=== PATIENT | male | born 1955 | race Caucasian/White ===

== ENCOUNTER 2018-06-23 15:46 | Outpatient (REF) | payer BC, SELFPAY ==
[2018-06-23 22:01] LABS: Anion Gap 9.6 mmol/L (3-11); BUN 13 mg/dL (7-18); CO2 25.4 mmol/L (21.0-32.0); CREATININE 0.77 mg/dL (0.70-1.30); Calcium 9.1 mg/dL (8.5-10.1); Chloride 104 mmol/L (98-107); Glucose 148 mg/dL (70-100); Potassium 3.7 mmol/L (3.5-5.1); Sodium 139 mmol/L (136-145)
== END 2018-06-23 16:06 ==
LOC: NCHCN 15:46
PROVIDERS: PCP Internal Medicine; Visit Provider Internal Medicine
DX: E11.65 Type 2 diabetes mellitus with hyperglycemia (principal); D12.6 Benign neoplasm of colon, unspecified; K21.9 Gastro-esophageal reflux disease without esophagitis; Z87.09 Personal history of other diseases of the respiratory system
CPT/HCPCS: 80048

== ENCOUNTER 2018-08-29 07:09 | Day surgery (SDC) | payer BC, SELFPAY ==
[2018-08-29 07:20] VITALS: BP 119/80; PULSE 75; RESP 16; TEMP 36.6; O2SAT 95
[2018-08-29] MEDS: Lactated Ringers 1,000 ML 80 ML IV (07:46)
--- NOTE | 2018-08-29 08:25 | BOWEL_PTH ---
PATIENT: Umair Valdivia LOC: [facility] U#:[id number] AGE/SX: 63/M ROOM: RE08/29/[address]: Monique Matias : 1955 BED: DIS: 08/29/2018 SPEC #: [id number] RECD: 08/29/18 12:31 STATUS: BERT RECecelia #: [id number] REHANA: 08/29/18 08:[address]: Monique Matias DEPT: Surgical Specimen RECD BY: Pam Oconnor ENTERED: 08/29/18 12:35 SP TYPE: Bowel OTHR DR: Camilo Ruiz Tissues: 1 - BIOPSY BOWEL 2 - BIOPSY BOWEL 3 - BIOPSY BOWEL 4 - BIOPSY BOWEL 5 - BIOPSY BOWEL 6 - BIOPSY BOWEL 7 - BIOPSY BOWEL Procedures: GROSS AND MICRO LEVEL 4 Comments: [id number]
--- NOTE | 2018-08-29 08:59 | W.COLOREPORT ---
Date of service: 08/29/18 Time of Service: 08:59 Colonoscopy Report Date of procedure: 08/29/18 Pre-op diagnosis general: A. polyps Post-op diagnosis procedure note: same Procedure: ce w/ mult polypectomy- all cold biter Surgeon: Monique Matias Anesthesia proc note operative: GETA Pathology: other Complications: None Disposition: same day Prep: Miralax Retraction Time: 15 mins Procedure Description: After informed consent was obtained the patient was taken to the procedure room and placed in a left decubitous position. Monitors were applied and a time out was done. The patients name, date of , procedure, allergies to medications and metal in their body was reviewed. The patient was then sedated. Once sedated and comfortable a rectal exam was done. External exam was normal. Internal exam revealed a normal sphincter tone and no palpable masses. The prostate nl. The scope was then introduced and retrofelexed. No internal hemorrhoids were identified. The scope was then advanced to the cecum without difficulty. The TI and appendiceal orifice were identified. The prep was good . The scope was then slowly retracted over 15 minutes back into the rectum. All polyps were removed with a cold biting forcepts. Polyps were removed at: x1 cecum/ x1 90cm/ x2 80cm (ascending colon) /x1 50cm (transverse) x1 @ 30cm/ x2 20cm (descending colon) adn x1 rectum. The scope was removed and the patient was woken up and taken back to Same day surgery in stable condition. The patient tolerated the procedure well and there were no immediate complications. Follow up: The patient should follow up in 3-5 years- path pd, unless they develop changes in bowel habits or other new gastrointestinal complaints.
--- NOTE | 2018-08-29 08:59 | W.PM.DSUDISC ---
Discharge Plan Disposition Patient Disposition: HOME Condition: Good Discharge Details Reason For Visit: colon scope Attending Provider: Monique Matias Primary Care Provider: Camilo Ruiz Home Meds and New Rx's Prescriptions: No Action glimepiride 4 mg tablet 4 mg PO QAM RF: 0 multivitamin [Daily Multi-Vitamin] tablet 1 tab PO DAILY RF: 0 polyethylene glycol 3350 17 gram/dose powder 238 g PO ONCE Qty: 238 RF: 0 bisacodyl [Dulcolax (bisacodyl)] 5 mg tablet,delayed release (DR/EC) 5 mg PO ONCE Qty: 4 RF: 0 Prilosec OTC 20 MG tablet,delayed release (DR/EC) 20 mg PO DAILY RF: 0 albuterol sulfate [ProAir HFA] 200 PUFF HFA aerosol inhaler 1 - 2 puff Inhalation .Q4-6H PRN RF: 0 Flovent HFA 120 PUFF HFA aerosol inhaler 2 puff Inhalation BID RF: 0 finasteride [Propecia] 1 MG tablet 1 mg PO DAILY RF: 0 loratadine [Claritin Liqui-Gel] 10 MG capsule 1 cap PO DAILY RF: 0 Victoza 2-Josafat 0.6 mg/0.1 mL (18 mg/3 mL) Pen Injector 0.6 mg SUBCUT DAILY RF: 0 Discharge Instructions Additional Instructions: Findings:mult polyps no asa/nsaids for 10 day may have some bleeding w/ first 1-2 DM Follow up:will send a letter w/ results from polps repeat scope in 5 yrs time - path pd. Please call if you develop: fevers >101.5 Nausea or Vomiting Abdominal pain that is not transient DAY SURGERY UNIT POST COLONOSCOPY INSTRUCTIONS 1. Because there will be medication in your system for the next 24 hours, you may feel a little sleepy. Your coordination will be affected. Therefore: a. Do not drive or operate dangerous equipment for 24 hours. b. Do not drink alcohol beverages for 24 hours (not even beer). c. Plan to go home and rest for the day. 2. Generally there are no restrictions on your activity after a day or so has gone by, but you may feel a bit fatigued for a few days. 3 After you arrive home you may have a light meal and return to a normal diet as you can tolerate it without feeling sick to your stomach. 4. After surgery, you may feel pain or discomfort. This should be only transient, but if it persists please contact your doctor. 5. If there are any questions regarding the findings of your procedure, please feel free to contact your doctor. 6. If you are unable to contact your doctor with a problem, contact the hospital at [phone]. 7. Continue all your regular medications unless directed otherwise. I understand the above instructions and have no questions. Signature of Patient or Responsible Adult Escort Date/Time Name of Responsible Adult Escort Signature of Nurse Date/Time Stand Alone Forms: Colonoscopy Post Instructions, Robert [place] (DSU) Activity:: no strenos acitiy or heavy lifting x 24 hrs Shower/Bathe:: 24 hours Diet:: small lt meals x 24 hrs Discharge Orders Discharge Orders: Discharge Order (Routine); Ordered 08/29/18 Ordered By: Monique Matias Discharge Data Discharge Date/Time-TO BE ENTERED AT DEPARTURE: 08/29/18 10:25 Discharge Comment: DC'D HOME WITH , STABLE. DS: Diagnosis Discharge Diagnosis (1) History of colonic polyps: Status: Chronic
[2018-08-29 09:52] VITALS: BP 118/80; PULSE 71; RESP 18; TEMP 35.9; O2SAT 93
== END 2018-08-29 10:25 | disposition home or self-care (01) ==
PROVIDERS: PCP Internal Medicine; Visit Provider Surgery
PROC: 0DJD8ZZ Inspection of Lower Intestinal Tract, Via Natural or Artificial Opening Endoscopic (ICD-10-PCS; CPT 45378; principal; 2018-08-29 08:15)
DX: Z12.11 Encounter for screening for malignant neoplasm of colon (principal); D12.0 Benign neoplasm of cecum; D12.2 Benign neoplasm of ascending colon; D12.3 Benign neoplasm of transverse colon; K63.5 Polyp of colon; K62.1 Rectal polyp; Z86.010 Personal history of colon polyps; E11.9 Type 2 diabetes mellitus without complications; Z79.84 Long term (current) use of oral hypoglycemic drugs; K21.9 Gastro-esophageal reflux disease without esophagitis
CPT/HCPCS: 45380; 88305

== ENCOUNTER 2018-09-01 17:50 | Emergency (ER) | payer BC, SELFPAY ==
[2018-09-01 18:06] VITALS: BP 108/88; PULSE 112; RESP 18; TEMP 36.6; O2SAT 95
[2018-09-01] MEDS: Lactated Ringers 1,000 ML 1000 ML IV ×2 (18:27→19:54)
[2018-09-01] MEDS: FAMOTIDINE 20 MG/50 ML BAG 100 MG IVPB (18:34)
[2018-09-01 18:37] LABS: Abs Immature Grans 0.01 k/cumm (0.0-0.09); Absolute Basophil Count 0.01 k/cumm (0.0-0.2); Absolute Eosinophil Count 0.21 k/cumm (0.0-0.7); Absolute Lymphocyte Count 0.72 k/cumm (1.2-3.4); Absolute Monocyte Count 0.66 k/cumm (0.11-0.7); Absolute Neutrophil Count 5.83 k/cumm (1.2-6.7); Basophils % 0.1; Eosinophils % 2.8; HCT 46.9 % (40.0-50.0); HGB 16.1 g/dL (13.5-17.5); Immature Grans % 0.1; Lymphocytes % 9.7; Mean Corp. HGB Concentration 34.3 g/dL (32.0-36.0); Mean Corpuscular Hemoglobin 29.1 pg (27.0-33.0); Mean Corpuscular Volume 84.8 fL (80-95); Mean Platelet Volume 10.2 fL (8.0-11.0); Monocytes % 8.9; Neutrophils % 78.4; Platelet Count 211 x1000/uL (130-400); RBC 5.53 m/cumm (4.50-6.00); RBC Distribution Width 13.1 % (11.8-14.1); White Blood Cell Count 7.44 k/cumm (4.4-10.8)
--- NOTE | 2018-09-01 18:48 | ED.GENADUL_ITS ---
Discharge Plan Disposition Patient Disposition: HOME Discharge Details Chief Complaint: Abd Prob Clinical Impression: Nausea and vomiting, Diarrhea Primary Care Provider: Camilo Ruiz ED Provider: Hugo Duong Home Meds and New Rx's Prescriptions: New ondansetron 4 mg tablet,disintegrating 4 mg PO BID-TID PRN (Reason: nausea and vomiting) Qty: 10 RF: 0 Continued glimepiride 4 mg tablet 4 mg PO QAM RF: 0 multivitamin [Daily Multi-Vitamin] tablet 1 tab PO DAILY RF: 0 Prilosec OTC 20 MG tablet,delayed release (DR/EC) 20 mg PO DAILY RF: 0 albuterol sulfate [ProAir HFA] 200 PUFF HFA aerosol inhaler 1 - 2 puff Inhalation .Q4-6H PRN RF: 0 Flovent HFA 120 PUFF HFA aerosol inhaler 2 puff Inhalation BID RF: 0 finasteride [Propecia] 1 MG tablet 1 mg PO DAILY RF: 0 loratadine [Claritin Liqui-Gel] 10 MG capsule 1 cap PO DAILY RF: 0 diphenhydramine-acetaminophen [Tylenol PM Extra Strength] 25-500 mg Tablet 2 tab PO PRN PRNRF: 0 No Action Victoza 2-Josafat 0.6 mg/0.1 mL (18 mg/3 mL) Pen Injector 0.6 mg SUBCUT DAILY RF: 0 Discharge Instructions Instructions: Ondansetron (By mouth), Acute Nausea and Vomiting (ED), Acute Diarrhea (ED) Additional Instructions: Please drink small amounts of fluid frequently in order to stay hydrated. Use nausea medicine as prescribed. Your symptoms may be a side effect of new medication Victoza. Please hold your next Victoza dosing and discuss this with your primary care physician Please contact your primary care physician to arrange follow-up. Call tomorrow. Stool culture labs are pending at time of discharge - please be sure to review results with your doctor. Return to the ER for any worsening or new concerning symptoms. Referrals: Camilo Ruiz MD [Primary Care Provider] - Medical Decision Making 18:45 --63-year-old male here with 12 days of intermittent nausea, vomiting, diarrhea. Abdominal exam is benign. I obtained outpatient colonoscopy report from 08/29/2018 that notes for polyps removed without complication. No other findings noted in report. Consider electrolyte abnormalities. I will check chemistry. Patient does seem dehydrated and will give IVF fluid bolus. Pepcid IV for reflux. Consider infectious etiology. Plan to obtain C. difficile screen. Patient did recently start Victoza about 30 days ago. Symptoms could be potential adverse side effects to this medication. -- Labs reviewed and mild anion gap noted. HR improved. Burning sensation resolved with pepcid. -- Patient given zofran IV for nausea. Patient given second IVF bolus. cdiff negative. 22:19 -- Repeat chem reveals nl anion gap. Patient reassessed and feeling better. Tolerating PO fluid. Giardia and cryptosporidia screen pending. Patient was advised to follow-up with his primary care physician. He understands importance of timely follow-up. I encouraged him to return should he have any worsening or new concerning symptoms. HPI General Mode of arrival: ambulatory . Date/Time Provider Initiated Documentation: 09/01/18 18:05 . Limitations to Documentation: no limitations . Information obtained by: patient . HPI Narrative: 63-year-old male with history of diabetes and GERD presents with chief complaint of loose stool. Patient notes that he has had nausea, vomiting, and diarrhea intermittently over the past 12 days. Symptoms are severe. No modifiers. Diarrhea is described as 100% liquid, brown like dirty pond water, and not particularly foul-smelling, although the patient notes that he has poor sense of smell. No recent antibiotics. Patient denies associated abdominal pain. Of note, patient had a colonoscopy on Saturday. Results were not reviewed with him. Related Data Home Medications Medication Instructions Recorded Confirmed Prilosec OTC 20 mg PO DAILY 06/08/12 09/01/18 Flovent HFA 2 puff INHALATION BID 07/25/15 09/01/18 albuterol sulfate [ProAir HFA] 1 - 2 puff INHALATION .Q4-6H PRN 07/25/15 09/01/18 finasteride [Propecia] 1 mg PO DAILY 07/25/15 09/01/18 loratadine [Claritin Liqui-Gel] 1 cap PO DAILY 07/28/15 09/01/18 glimepiride 4 mg tablet 4 mg PO QAM 12/17/17 09/01/18 multivitamin tablet 1 tab PO DAILY 12/17/17 09/01/18 liraglutide [Victoza 2-Josafat] 0.6 mg SUBCUT DAILY 08/27/18 09/01/18 diphenhydramine-acetaminophen 2 tab PO PRN PRN 09/01/18 09/01/18 [Tylenol PM Extra Strength] ondansetron 4 mg PO BID-TID PRN #10 tab 09/01/18 Previous Rx's Medication Instructions Recorded ondansetron 4 mg PO BID-TID PRN #10 tab 09/01/18 Allergies Allergy/AdvReac Type Severity Reaction Status Date / Time lisinopril Allergy Mild Verified 09/01/18 18:09 metformin Allergy Mild Verified 09/01/18 18:09 General Stated Complaint: Abd Prob HONEY: 3 Review of Systems Constitutional Denies fever(s) Cardiovascular Denies chest pain, Denies edema and Denies dyspnea Respiratory Denies dyspnea Gastrointestinal Reports as per HPI, Denies abdominal pain and Reports other (Patient does note that he has had some intermittent burning reflux pain) Genitourinary Denies hematuria and Denies dysuria PFSH Medical History History of colonic polyps (Chronic) Compulsive disorder (Acute) Depression with anxiety (Acute) Non-insulin dependent type 2 diabetes mellitus (Acute) Overweight (Acute) Tubular adenoma of colon (Acute) Asthma BPH (benign prostatic hyperplasia) GERD (gastroesophageal reflux disease) Seasonal allergies Surgical History Hx of knee surgery (Acute) History of cataract extraction (Chronic) Hx of colonoscopy (Chronic) Social History Smoking/Tobacco Use Status: Former Tobacco Use Quit Date: 08/07/03 Alcohol Intake: current Alcohol Intake frequency: holidays/special occasions only Alcohol type: beer and hard liquor Drug use: Never Substance use type: does not use Do you feel safe at home: Yes Do you feel safe in your relationship?: Yes Exam Const General: cooperative and no acute distress HENMT Head: normocephalic Mouth: mucous membranes dry Eyes Conjunctivae: normal conjunctivae Sclera: normal sclerae Resp Auscultation: clear to auscultation bilaterally, no rales, no rhonchi and no wheezes Cardio Jugular venous pressure: no JVD Rate: regular rate and not tachycardic Rhythm: regular rhythm GI Palpation: soft, not firm, no guarding, no masses, not rigid and tender (minimal LLQ soft tissue at victoza injection site) with no rebound tenderness Auscultation: normal bowel sounds Skin General skin exam: no rashes or lesions noted Neuro General: alert, awake and tone normal Extrem General: no edema Psych Appearance: grossly normal Mental Status: mental status grossly normal Course Vital Signs Temperature 36.6 C 09/01/18 18:06 Pulse 112 H 09/01/18 18:06 Respiratory Rate 18 09/01/18 18:06 Blood Pressure 108/88 09/01/18 18:06 Pulse Oximetry 95 09/01/18 18:06 Temperature 36.6 C 09/01/18 18:06 Temperature Source Temporal Artery Scan 09/01/18 18:06 Pulse 112 H 09/01/18 18:06 Respiratory Rate 18 09/01/18 18:06 Respiratory Effort 09/01/18 18:10 Blood Pressure 108/88 09/01/18 18:06 Pulse Oximetry 95 09/01/18 18:06 Oxygen Delivery Method Room Air 09/01/18 18:06 Oxygen Flow Rate 0 09/01/18 18:06 Pain Level 2 09/01/18 18:06 Comment 09/01/18 18:06
[2018-09-01 18:50] LABS: ALT 41 U/L (12-78); AST 20 U/L (15-37); Albumin 3.8 g/dL (3.4-5.0); Alkaline Phosphatase 79 U/L (46-116); Anion Gap 12.5 mmol/L (3-11); BUN 13 mg/dL (7-18); Bilirubin, Total 0.5 mg/dL (0.2-1.0); CO2 22.5 mmol/L (21.0-32.0); CREATININE 0.74 mg/dL (0.70-1.30); Calcium 8.8 mg/dL (8.5-10.1); Chloride 103 mmol/L (98-107); Glucose 151 mg/dL (70-100); Lipase 125 U/L (73-393); Magnesium 1.8 mg/dL (1.8-2.4); Potassium 3.5 mmol/L (3.5-5.1); Sodium 138 mmol/L (136-145); Total Protein 7.3 g/dL (6.4-8.2)
[2018-09-01 19:28] VITALS: BP 131/71; RESP 18; TEMP 37.1
[2018-09-01] MEDS: Ondansetron 4 MG/2 ML VIAL IVP (19:52)
[2018-09-01 21:07] VITALS: BP 127/60; PULSE 80; RESP 1; TEMP 37.7; O2SAT 93
[2018-09-01 22:01] LABS: Anion Gap 9.3 mmol/L (3-11); BUN 11 mg/dL (7-18); CO2 24.7 mmol/L (21.0-32.0); CREATININE 0.82 mg/dL (0.70-1.30); Calcium 8.4 mg/dL (8.5-10.1); Chloride 105 mmol/L (98-107); Glucose 121 mg/dL (70-100); Potassium 4.1 mmol/L (3.5-5.1); Sodium 139 mmol/L (136-145)
[2018-09-01] MEDS: Ondansetron O.D.T. 4 MG TABEF PO (22:30)
== END 2018-09-01 22:30 | disposition home or self-care (01) ==
PROVIDERS: Emergency Provider Student in an Organized Health Care Education/Training Program; PCP Internal Medicine
DX: R11.2 Nausea with vomiting, unspecified (principal); R19.7 Diarrhea, unspecified; E11.9 Type 2 diabetes mellitus without complications
CPT/HCPCS: 36415; 80048; 80053; 83690; 87329; 93005; 96361; 96365; 96375; 99284; 83735; 85025; 87324; 93010; J2405

== ENCOUNTER 2018-09-10 16:00 | Observation (INO) | payer BC, SELFPAY ==
[2018-09-10] VITALS (45 sets, daily range): BP systolic 74–162; BP diastolic 60–95; PULSE 76–101; RESP 10–26; TEMP 36.6–37.1; O2SAT 92–97
--- NOTE | 2018-09-10 16:29 | DI.CT_ITS ---
SYMPTOM/DIAGNOSIS: LOWER ABD PAIN, RECENT COLONOSCOPY CT ABDOMEN AND PELVIS: CT scan of the abdomen and pelvis was performed following the uneventful administration of intravenous contrast material. There are no priors for comparison. There is scarring seen in the left lingula. No focal consolidating infiltrates are present. The liver is normal in size. No suspicious hepatic mass is seen. The portals, superior mesenteric and splenic veins are patent. The gallbladder is negative. There is no biliary ductal dilatation. The pancreas, spleen and adrenal glands are unremarkable. The kidneys show normal and symmetric enhancement. There are bilateral renal cysts. There is a nonobstructing 2 mm stone in the upper pole of the left kidney. No hydronephrosis is seen. The urinary bladder is intact. The reproductive organs are unremarkable. The abdominal aorta is of normal caliber with mild atherosclerosis. No significant abdominal or pelvic ascites or pneumoperitoneum is present. There is a mildly prominent lymph node seen in the mesentery. These are likely reactive. No significant abdominal or pelvic adenopathy is seen. There is diverticulosis seen in the colon but no evidence of acute diverticulitis. The bowel shows no evidence of obstruction or inflammation. There is a normal appendix present. Degenerative changes are seen in the spine. IMPRESSION: Incidental findings in the abdomen as described abov. 2. No evidence of an acute abdominal or pelvic process.
[2018-09-10] MEDS: Normal Saline 1,000 ML 1000 ML IV ×2 (17:04→19:26)
[2018-09-10 17:19] LABS: BE (Venous) 1.7 mmol/L (-3-3); HCO3 (Venous) 26 mmol/L (22-28); O2 Sat (Venous) 65 % (70-80); TCO2 (Venous) 23 mmol/L (22-29); pCO2 (Venous) 41 mm/Hg (34-47); pH (Venous) 7.41 (7.32-7.43); pO2 (Venous) 33 mm/Hg (28-44)
[2018-09-10 17:23] LABS: Lactate-non-spesis 1.1 mmol/l (0.6-1.4)
[2018-09-10 17:24] LABS: Abs Immature Grans 0.01 k/cumm (0.0-0.09); Absolute Basophil Count 0.02 k/cumm (0.0-0.2); Absolute Eosinophil Count 0.15 k/cumm (0.0-0.7); Absolute Lymphocyte Count 1.04 k/cumm (1.2-3.4); Absolute Monocyte Count 0.48 k/cumm (0.11-0.7); Absolute Neutrophil Count 3.48 k/cumm (1.2-6.7); Basophils % 0.4; Eosinophils % 2.9; HCT 45.4 % (40.0-50.0); HGB 15.6 g/dL (13.5-17.5); Immature Grans % 0.2; Lymphocytes % 20.1; Mean Corp. HGB Concentration 34.4 g/dL (32.0-36.0); Mean Corpuscular Hemoglobin 28.9 pg (27.0-33.0); Mean Corpuscular Volume 84.1 fL (80-95); Mean Platelet Volume 10.2 fL (8.0-11.0); Monocytes % 9.3; Neutrophils % 67.1; Platelet Count 215 x1000/uL (130-400); White Blood Cell Count 5.18 k/cumm (4.4-10.8)
[2018-09-10 17:30] LABS: Bilirubin Negative (Negative); Blood Trace-lysed (Negative); Clarity Clear; Glucose 500 mg/dL (Negative); Ketones 40 mg/dL (Negative); Leukocyte Esterase Negative (Negative); Nitrite Negative (Negative); Specific Gravity 1.015 (1.005-1.025); Urobilinogen 0.2 EU/dL (Up TO 0.2); pH 6.5 (5-8)
[2018-09-10 17:50] LABS: ALT 45 U/L (12-78); AST 23 U/L (15-37); Alkaline Phosphatase 97 U/L (46-116); Anion Gap 9.3 mmol/L (3-11); BUN 13 mg/dL (7-18); Bilirubin, Total 0.4 mg/dL (0.2-1.0); CO2 25.7 mmol/L (21.0-32.0); CREATININE 0.81 mg/dL (0.70-1.30); Calcium 9.2 mg/dL (8.5-10.1); Chloride 96 mmol/L (98-107); Creatine Kinase 152 U/L (39-308); Glucose 251 mg/dL (70-100); Lipase 758 U/L (73-393); Potassium 3.9 mmol/L (3.5-5.1); Sodium 131 mmol/L (136-145); TSH (W/Ref FT4) 1.56 uIU/mL (0.358-3.74); Total Protein 8.1 g/dL (6.4-8.2)
[2018-09-10 17:51] LABS: Troponin I < 0.02 ng/mL (0.00-0.06)
[2018-09-10] MEDS: Omnipaque 350 MG/ML 100 ML BTL IJ (18:20)
[2018-09-10 18:21] LABS: Bacteria Rare HPF (Negative); C & S Indicated? No; Casts Negative LPF (Negative); Crystals Negative HPF (Negative); Epithelial Cells Negative HPF (Negative); Mucus Negative (Negative); Other Cells Negative (Negative); RBC 0-2 (0-2); WBC Negative HPF (0-5)
--- NOTE | 2018-09-10 19:04 | W.ED.GENAD ---
Discharge Plan Disposition Patient Disposition: [facility] INPATIENT Condition: Improving Discharge Details Chief Complaint: GenMedical Clinical Impression: Acute pancreatitis, Myalgia, Nausea & vomiting, Acute dehydration Admit Date/Time: 09/10/18 20:53 Admit Provider: Gumaro Fleming Attending Provider: Gumaro Fleming Primary Care Provider: Camilo Ruiz ED Provider: Rolando Rosario Medical Decision Making This is a pleasant 63-year-old male with no significant past medical history aside for type 2 diabetes who presents today for evaluation of vague symptoms of fatigue, myalgias throughout, nausea, occasional vomiting, previous diarrhea which has resolved after he stopped taking his Victoza. He admits to notable fatigue as well. Exam demonstrates mild abdominal tenderness in the epigastric and lower abdomen. But no other significant abnormalities. No focal neurologic deficits, no signs of severe joint redness or warmth. He is not on a statin, differential is broad. Laboratory work-up demonstrates a normal white count, normal hemoglobin, pH is normal, electrolytes are normal, no anion gap, lactate 1.1. Troponin less than 0.02, TSH normal, CPK was within normal limits. TSH is elevated at 758. This does correlate well with his symptoms of vomiting, epigastric tenderness, and anorexia today. Urinalysis is negative for any signs of infection, notably elevated ketones at 40 suggestive also of dehydration. CT scan of the abdomen demonstrates prominent dilated loop of small bowel, but no other abnormalities suggestive of obstruction. The patient feels slightly improved with fluids but still feels notably fatigued. Myalgias and arthralgias continue in spite of morphine. Exam demonstrates no other abnormalities I can appreciate. I did discuss discharge for the patient and he states very clearly that he does not feel comfortable going home. With his difficulty tolerating p.o., his notable nausea, his elevated lipase, I do feel that overnight observation is reasonable for continued IV fluids reassessment most likely discharge in the morning. We will discussed the case with the hospitalist for admission. 11 PM I discussed the case with , he agrees with the assessment and plan. I have extensively reviewed the treatment plan with the patient. I have addressed all patient concerns at this time. I have also discussed the plan with the admitting physician and they agree with the current assessment and plan and have agreed to assume responsibility for the patient. All parties demonstrate verbal understanding and agreement with our assessment and plan at this time. EKG 19: 13 Rate 86, intervals normal, sinus rhythm, no significant ST elevation or depression, no T wave inversions. No Q waves. TECHNIQUE: Imaging protocol: Axial computed tomography images of the abdomen and pelvis with intravenous contrast. Coronal and sagittal reformatted images were created and reviewed. COMPARISON: No relevant prior studies available. FINDINGS: Lungs: There is a patchy opacity in the lingular region with an associated linear density (series 4 image 5). This could represent a scar but should be correlated with any history of prior surgery in this region. ABDOMEN: Liver: Normal. No mass. Gallbladder and bile ducts: Normal. No calcified stones. No ductal dilation. Pancreas: Normal. No ductal dilation. Spleen: Normal. No splenomegaly. Adrenals: Normal. No mass. Kidneys and ureters: Cystic structures in each kidney. Too small to characterize hypodensity in the left kidney. No hydronephrosis. Nonobstructive left renal calculus. Stomach and bowel: Heterogeneous contents to the stomach, favored to be related to ingested products. There is a single prominent loop of small bowel in the left hemiabdomen containing fluid. 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 If there is a discrepancy between the preliminary and final interpretation, please notify [employer] via [email or web address]. If you do not have access to our QA portal, call our QA team at [phone] CONFIDENTIALITY STATEMENT This report is intended only for the use of the referring physician, and only in accordance with law, If you received this in error, call [phone] Page 2 of 2 This is not appear dilated, measuring less than 2.5 cm. No evidence of bowel obstruction. Scattered diverticula. Appendix: No evidence of appendicitis. PELVIS: Bladder: Unremarkable as visualized. Reproductive: Prostate calcification. ABDOMEN and PELVIS: Intraperitoneal space: Normal. No free air. No significant fluid collection. Bones/joints: No acute fracture. No dislocation. Skeletal degenerative changes. Soft tissues: Unremarkable. Vasculature: Normal. No abdominal aortic aneurysm. Lymph nodes: There is a mildly prominent mesenteric lymph nodes in the right hemiabdomen (series 6 image 61 through 67). A mesenteric lymph node on series 4 image 51 measures 1.3 cm on short axis. There is a prominence lymph node anterior to the IVC on series 4 image 20 measuring 9 mm on short axis. IMPRESSION: 1. There is a single prominent loop of small bowel in the left hemiabdomen containing fluid. This is not measure dilated. No evidence of bowel obstruction at this time. 2. Lymph node prominence/enlargement as described. This may be reactive. Followup could be considered. 3. Nonobstructive left renal calculus. Other findings as above. Thank you for allowing us to participate in the care of your patient. Dictated and Authenticated by: Leatha Owusu MD 09/10/2018 7:02 PM Eastern Time ([place] & [place]) HPI General Date/Time Provider Initiated Documentation: 09/10/18 16:13. HPI Narrative: This is a 63-year-old male with a past medical history of GERD, type 2 diabetes, who presents today with atypical symptoms of diarrhea for a week but stopped as soon as he stopped taking his Victoza. He is now been 4 days of diarrhea free, but now has no symptoms of severe fatigue, myalgias in all of his elbows shoulders knees and hips, generalized feeling of weakness, nausea, occasional vomiting, and notably decreased appetite. He has also had some urinary frequency, but denies any burning. He denies any other complaints at this time. He denies any recent alcohol, other sick contacts, or other complaints. He denies any use of statin drugs, or any other new medications. He has not taken any of his Victoza since he stopped 4 days ago. No other complaints at this time, no other modifying factors. Related Data Home Medications Medication Instructions Recorded Confirmed Prilosec OTC 20 mg PO DAILY 06/08/12 09/10/18 Flovent HFA 2 puff INHALATION BID 07/25/15 09/10/18 albuterol sulfate [ProAir HFA] 1 - 2 puff INHALATION .Q4-6H PRN 07/25/15 09/10/18 finasteride [Propecia] 1 mg PO DAILY 07/25/15 09/10/18 loratadine [Claritin Liqui-Gel] 1 cap PO DAILY 07/28/15 09/10/18 glimepiride 4 mg tablet 4 mg PO QAM 09/11/18 06/05/19 multivitamin tablet 1 tab PO DAILY 12/17/17 09/01/18 diphenhydramine-acetaminophen 2 tab PO PRN PRN 09/01/18 09/10/18 [Tylenol PM Extra Strength] ondansetron 4 mg PO BID-TID PRN #10 tab 09/01/18 09/10/18 Previous Rx's Medication Instructions Recorded ondansetron 4 mg PO BID-TID PRN #10 tab 09/01/18 Allergies Allergy/AdvReac Type Severity Reaction Status Date / Time lisinopril Allergy Mild Verified 09/10/18 16:09 metformin Allergy Mild Verified 09/10/18 16:09 General Stated Complaint: GenMedical HONEY: 3 Review of Systems Review of Systems All systems reviewed & are unremarkable except as noted in HPI and below PFSH Social History Smoking/Tobacco Use Status: Former Tobacco Use Quit Date: 08/07/03 Alcohol Intake: current Alcohol Intake frequency: holidays/special occasions only Alcohol type: beer and hard liquor Drug use: Never Substance use type: does not use Do you feel safe at home: Yes Do you feel safe in your relationship?: Yes Exam Narrative Exam Narrative: 1.Const: Well-nourished, Well-developed, appearing stated age 2.Eyes: PERRL, no conjunctival injection, and symmetrical lids. 3.ENT: Atraumatic external nose and ears. Moist MM. Neck: Symmetric, trachea midline, No thyromegaly. 4.CVS: +S1/S2, No murmurs or gallops. Peripheral pulses 2+ and equal in all extremities. Brisk capillary refill in all extremities. 5.RESP: Unlabored respiratory effort. Clear to auscultation bilaterally. No wheezes rales or rhonchi 6.GI: Soft, nondistended, mild tenderness in the lower abdomen and mild tenderness in the epigastric region. No evidence of acute surgical abdomen. 7.MSK: Normocephalic/Atraumatic, Extremities w/o deformity or ttp No cyanosis or clubbing, Normal movement of all extremities no significant flank or CVA tenderness. No focal tenderness with movement of the joints. No erythema over any of his joints. 8.Skin: Warm, Dry. No rashes or lesions. 9.Neuro: news agent II-XII grossly intact. Sensation grossly intact, no focal neurologic deficits. 10.Psych: (AAO) x3. Appropriate mood and affect Course Vital Signs Temperature 36.6 C 09/10/18 16:05 Pulse 85 09/10/18 16:05 Respiratory Rate 16 09/10/18 16:05 Blood Pressure 129/78 09/10/18 16:05 Pulse Oximetry 95 09/10/18 16:05 Temperature 36.6 C 09/10/18 16:05 Temperature Source Skin 09/10/18 16:05 Pulse 82 09/10/18 18:33 Respiratory Rate 16 09/10/18 18:33 Respiratory Effort 09/10/18 16:52 Respiratory Depth Normal 09/10/18 16:52 Respiratory Pattern Normal 09/10/18 16:52 Blood Pressure 146/93 H 09/10/18 18:33 Blood Pressure Position Sitting 09/10/18 16:05 Pulse Oximetry 95 09/10/18 18:33 Oxygen Delivery Method Room Air 09/10/18 18:33 Oxygen Flow Rate 0 09/10/18 18:33 Pain Level 6 09/10/18 16:05 Lab/Test Results Lab/Test Results: 09/10/18 17:12 Urine - Voided Urine Culture - Pending Laboratory Tests Range/Units 09/10/18 09/10/18 09/10/18 16:53 16:53 16:53 WBC (4.4-10.8) k/cumm 5.18 RBC (4.50-6.00) m/cumm 5.40 Hgb (13.5-17.5) g/dL 15.6 Hct (40.0-50.0) % 45.4 MCV (80-95) fL 84.1 MCH (27.0-33.0) pg 28.9 MCHC (32.0-36.0) g/dL 34.4 RDW (11.8-14.1) % 13.0 Plt Count (130-400) x1000/uL 215 MPV (8.0-11.0) fL 10.2 Immature Gran % 0.2 Neutrophils % 67.1 Lymphocytes % 20.1 Monocytes % 9.3 Eosinophils % 2.9 Basophils % 0.4 Absolute Neutrophils (1.2-6.7) k/cumm 3.48 Absolute Lymphocytes (1.2-3.4) k/cumm 1.04 L Absolute Monocytes (0.11-0.7) k/cumm 0.48 Absolute Eosinophils (0.0-0.7) k/cumm 0.15 Absolute Basophils (0.0-0.2) k/cumm 0.02 VBG pH (7.32-7.43) VBG pCO2 (34-47) mm/Hg VBG pO2 (28-44) mm/Hg VBG HCO3 (22-28) mmol/L VBG Total CO2 (22-29) mmol/L VBG O2 Saturation (70-80) % VBG Base Excess (-3-3) mmol/L Sodium (136-145) mmol/L 131 L Potassium (3.5-5.1) mmol/L 3.9 Chloride (98-107) mmol/L 96 L Carbon Dioxide (21.0-32.0) mmol/L 25.7 Anion Gap (3-11) mmol/L 9.3 BUN (7-18) mg/dL 13 Creatinine (0.70-1.30) mg/dL 0.81 Estimated GFR/1.73 m2 (mL/min/1.73m2) >= 60.00 Glucose (70-100) mg/dL 251 H Lactate (0.6-1.4) mmol/l 1.1 Calcium (8.5-10.1) mg/dL 9.2 Total Bilirubin (0.2-1.0) mg/dL 0.4 AST (15-37) U/L 23 ALT (12-78) U/L 45 Alkaline Phosphatase (46-116) U/L 97 Creatine Kinase (39-308) U/L 152 Troponin I (0.00-0.06) ng/mL < 0.02 Total Protein (6.4-8.2) g/dL 8.1 Albumin (3.4-5.0) g/dL 4.0 Lipase (73-393) U/L 758 H TSH (0.358-3.74) uIU/mL 1.56 Urine Color (Yellow) Urine Clarity Urine pH (5-8) Ur Specific [place] (1.005-1.025) Urine Protein (Negative) mg/dL Urine Ketones (Negative) mg/dL Urine Blood (Negative) Urine Nitrite (Negative) Urine Bilirubin (Negative) Urine Urobilinogen (Up TO 0.2) EU/dL Ur Leukocyte Esterase (Negative) Urine RBC (0-2) Urine WBC (0-5) HPF Ur Epithelial Cells (Negative) HPF Urine Crystals (Negative) HPF Urine Bacteria (Negative) HPF Urine Casts (Negative) LPF Urine Mucus (Negative) Urine Other (Negative) Ur Culture Indicated? Urine Glucose (Negative) mg/dL Range/Units 09/10/18 09/10/18 16:53 17:12 WBC (4.4-10.8) k/cumm RBC (4.50-6.00) m/cumm Hgb (13.5-17.5) g/dL Hct (40.0-50.0) % MCV (80-95) fL MCH (27.0-33.0) pg MCHC (32.0-36.0) g/dL RDW (11.8-14.1) % Plt Count (130-400) x1000/uL MPV (8.0-11.0) fL Immature Gran % Neutrophils % Lymphocytes % Monocytes % Eosinophils % Basophils % Absolute Neutrophils (1.2-6.7) k/cumm Absolute Lymphocytes (1.2-3.4) k/cumm Absolute Monocytes (0.11-0.7) k/cumm Absolute Eosinophils (0.0-0.7) k/cumm Absolute Basophils (0.0-0.2) k/cumm VBG pH (7.32-7.43) 7.41 VBG pCO2 (34-47) mm/Hg 41 VBG pO2 (28-44) mm/Hg 33 VBG HCO3 (22-28) mmol/L 26 VBG Total CO2 (22-29) mmol/L 23 VBG O2 Saturation (70-80) % 65 L VBG Base Excess (-3-3) mmol/L 1.7 Sodium (136-145) mmol/L Potassium (3.5-5.1) mmol/L Chloride (98-107) mmol/L Carbon Dioxide (21.0-32.0) mmol/L Anion Gap (3-11) mmol/L BUN (7-18) mg/dL Creatinine (0.70-1.30) mg/dL Estimated GFR/1.73 m2 (mL/min/1.73m2) Glucose (70-100) mg/dL Lactate (0.6-1.4) mmol/l Calcium (8.5-10.1) mg/dL Total Bilirubin (0.2-1.0) mg/dL AST (15-37) U/L ALT (12-78) U/L Alkaline Phosphatase (46-116) U/L Creatine Kinase (39-308) U/L Troponin I (0.00-0.06) ng/mL Total Protein (6.4-8.2) g/dL Albumin (3.4-5.0) g/dL Lipase (73-393) U/L TSH (0.358-3.74) uIU/mL Urine Color (Yellow) Yellow Urine Clarity Clear Urine pH (5-8) 6.5 Ur Specific [place] (1.005-1.025) 1.015 Urine Protein (Negative) mg/dL Negative Urine Ketones (Negative) mg/dL 40 H Urine Blood (Negative) Trace-lysed H Urine Nitrite (Negative) Negative Urine Bilirubin (Negative) Negative Urine Urobilinogen (Up TO 0.2) EU/dL 0.2 Ur Leukocyte Esterase (Negative) Negative Urine RBC (0-2) 0-2 Urine WBC (0-5) HPF Negative Ur Epithelial Cells (Negative) HPF Negative Urine Crystals (Negative) HPF Negative Urine Bacteria (Negative) HPF Rare Urine Casts (Negative) LPF Negative Urine Mucus (Negative) Negative Urine Other (Negative) Negative Ur Culture Indicated? No Urine Glucose (Negative) mg/dL 500 H
[2018-09-10] MEDS: ACETAMINOPHEN 1,000 MG/100 ML BTL 400 MG IVPB (21:05)
[2018-09-10] MEDS: Ketorolac 15 MG/ML VIAL IVP (21:06)
[2018-09-10] MEDS: Normal Saline 1,000 ML 250 ML IV (22:04)
[2018-09-10] MEDS: Normal Saline Flush 10 ML SYR IVP (22:20)
[2018-09-10] MEDS: Ondansetron 4 MG/2 ML VIAL IVP (22:20)
[2018-09-10] MEDS: Pantoprazole 40 MG VIAL IVP (22:20)
--- NOTE | 2018-09-10 23:15 | W.PM.HP.N ---
Date of service: 09/10/18 Time of Service: 23:15 Assessment and Plan (1) Acute pancreatitis: Current visit: Yes Status: Acute will keep him NPO other than some sips and chips for tonight. if no further vomiting and no abdominal pains then can try him on some clears in the a.m., repeat his labs in the a.m. and check abdominal US to rule out biliary disease although his CT did not show any signs of acute cholecystitis and his LFT were ok. Will treat pain and nausea empirically w/ antiemetics and analgesics. He seems to have gotten considerable relief of his myalgias. Most likely his cause of his pancreatitis is d/t Victoza (temporally related and a known side effect/precaution of Victoza) Qualifiers: Pancreatitis type: drug induced Acute pancreatitis complication: no infection or necrosis Qualified Code(s): K85.30 - Drug induced acute pancreatitis without necrosis or infection (2) Diabetes mellitus type 2, controlled, without complications: Current visit: Yes Status: Acute monitor his blood sugars and treat w/ sliding scale novolog Qualifiers: Diabetes mellitus correction insulin use: without correction use Qualified Code(s): E11.9 - Type 2 diabetes mellitus without complications (3) Asthma: Current visit: Yes Status: Chronic he seems to have developed some acute bronchospasm, possibly from his recent vomiting or possibly from his GERD. He will be given albuterol updraft, if this does not improve his bronchospasm then he may need some short term corticosteroids. His Flovent dose will be confirmed and reordered in the a.m. Qualifiers: Asthma severity: mild Asthma persistence: intermittent Asthma complication type: uncomplicated Qualified Code(s): J45.20 - Mild intermittent asthma, uncomplicated (4) GERD (gastroesophageal reflux disease): Current visit: Yes Status: Chronic will give iv protonix for tonight but when he is able to resume oral meds/foods then he will go back on his prilosec Qualifiers: Esophagitis presence: esophagitis presence not specified Qualified Code(s): K21.9 - Gastro-esophageal reflux disease without esophagitis History of Present Illness Chief Complaint: muscle aches, nausea and vomiting Narrative: 63-year-old male with history of type 2 diabetes mellitus who was started on Victoza this spring (August 02) but developed severe nausea vomiting and diarrhea and presented to the emergency room last week on September 01, 2018 with the above complaints. He stopped his Victoza and since then the diarrhea subsided and his vomiting has ceased. However he now has complaints of generalized fatigue and severe myalgias and has epigastric abdominal pain. Patient was evaluated in the emergency department by Dr. Rolando Rosario who did laboratory work-up that demonstrated normal white blood cell count normal H&H. Electrolytes and pH were normal. Anion gap is normal and lactate level was normal. His troponin was less than 0.02. CPK is within normal limits. However his lipase was elevated at 758. Glucose was elevated 251. CT of his abdomen and pelvis showed no evidence of bowel obstruction. There is a mildly prominent mesenteric lymph nodes in the right hemiabdomen. There is a nonobstructing left renal calculus. Gallbladder and bile duct showed no gallstones and no ductal dilatation. Pancreas appeared to be normal with no ductal dilatation. Single prominent loop of small bowel seen in the left hemiabdomen containing fluid but was not dilated. Treatment in the emergency room included IV fluids including a couple liters of normal saline as well as a dose of ketorolac and morphine and Tylenol for his pain. Patient is now being admitted on observation status for treatment of acute pancreatitis. Review of Systems Constitutional Reports system reviewed and no additional complaints, except as docu [facility] Medical History History of colonic polyps (Chronic) Compulsive disorder (Acute) Depression with anxiety (Acute) Non-insulin dependent type 2 diabetes mellitus (Acute) Overweight (Acute) Tubular adenoma of colon (Acute) Asthma BPH (benign prostatic hyperplasia) GERD (gastroesophageal reflux disease) Seasonal allergies Surgical History History of nasal polypectomy (Resolved) Hx of knee surgery (Acute) History of cataract extraction (Chronic) Hx of colonoscopy (Chronic) Social History Smoking/Tobacco Use Status: Former Tobacco Use Quit Date: 08/07/03 Pack-years: 17 Tobacco: How many years used: 17 Alcohol Intake: current Alcohol Intake frequency: holidays/special occasions only Alcohol type: beer and hard liquor Drug use: Never Substance use type: does not use Do you feel safe at home: Yes Do you feel safe in your relationship?: Yes Meds Home Medications Medication Instructions Recorded Confirmed Type Prilosec OTC 20 mg PO DAILY 06/08/12 09/10/18 History Flovent HFA 2 puff INHALATION BID 07/25/15 09/10/18 History albuterol sulfate [ProAir HFA] 1 - 2 puff INHALATION .Q4-6H PRN 07/25/15 09/10/18 History finasteride [Propecia] 1 mg PO DAILY 07/25/15 09/10/18 History loratadine [Claritin Liqui-Gel] 1 cap PO DAILY 07/28/15 09/10/18 History glimepiride 4 mg tablet 4 mg PO QAM 12/17/17 09/10/18 History multivitamin tablet 1 tab PO DAILY 12/17/17 09/01/18 History diphenhydramine-acetaminophen 2 tab PO PRN PRN 09/01/18 09/10/18 History [Tylenol PM Extra Strength] ondansetron 4 mg PO BID-TID PRN #10 tab 09/01/18 09/10/18 Rx Allergies Allergy/AdvReac Type Severity Reaction Status Date / Time lisinopril Allergy Mild Verified 09/10/18 16:09 metformin Allergy Mild Verified 09/10/18 16:09 Exam Const General: cooperative, no acute distress and well groomed Nutritional Appearance: well nourished Orientation: alert, awake and oriented x3 HENMT Head: normal to inspection, no palpable skull fracture, normocephalic and atraumatic Ears: hearing grossly normal bilaterally, external ears normal and TM's normal bilaterally General nose exam: external nose normal, nares normal and no nasal discharge Face and sinus: normal facial exam, sinuses nontender and face symmetric Mouth: oral mucosae normal, lip normal, tongue normal, oropharynx normal and moist mucous membranes Teeth and gingiva: dentition normal and gingiva normal Throat: posterior oropharynx normal and uvula midline Eyes General: appearance normal, both eyes and all related structures Alignment and Position: alignment normal Periorbital: periorbital findings normal Eyelids: eyelids normal Conjunctivae: conjunctivae normal Sclera: sclerae normal Cornea: corneas normal Pupils: PERRL, normal by confrontation and accommodation normal EOM: EOM intact bilaterally Neck Neck: normal visual inspection, full ROM, no lymphadenopathy, trachea midline, supple and no JVD Thyroid: thyroid normal Carotids: normal carotid upstroke Lymphatic: no lymphadenopathy noted Chest Chest: normal inspection of the chest Resp Effort & Inspection: normal respiratory effort and able to speak in complete sentences Auscultation: wheezes scattered wheezes Cardio Jugular venous pressure: no JVD Palpation: normal PMI Rate: regular rate Rhythm: regular rhythm Heart Sounds: S1 normal, S2 normal and normal, physiologic split S2 Pulses: normal peripheral pulses GI Inspection: normal to inspection Palpation: soft, no hepatosplenomegaly and nontender Percussion: normal to percussion Auscultation: normal bowel sounds Skin General skin exam: no rashes or lesions noted, elasticity normal and turgor normal Lesions: no lesions Rashes: no rashes Trauma: no lacerations or abrasions Hair: normal Nails: normal Neuro General: alert, awake, oriented x3, moves all extremities and no focal motor deficits Cognition: normal cognition Speech: speech normal Gait: normal gait Motor: muscle tone normal throughout, strength 5/5 throughout, no pronator drift, no movement abnormalities noted and no fasciculations Sensory Exam: no sensory deficits noted Extrem General: normal to inspection, full ROM, normal capillary refill, no joint enlargement, no clubbing, cyanosis or edema and no calf tenderness bilaterally Psych Appearance: grossly normal Mental Status: mental status grossly normal Speech and Movement: speech and movement normal Mood: congruent mood Affect: normal affect Attitude: cooperative Thought Process: normal Thought Content: normal Insight: insight good Judgment: judgment good Results Labs : 09/10/18 16:53 09/10/18 16:53 Laboratory Results - last 24 hr 09/10/18 09/10/18 09/10/18 16:53 16:53 16:53 WBC 5.18 RBC 5.40 Hgb 15.6 Hct 45.4 MCV 84.1 MCH 28.9 MCHC 34.4 RDW 13.0 Plt Count 215 MPV 10.2 Immature Gran % 0.2 Neutrophils % 67.1 Lymphocytes % 20.1 Monocytes % 9.3 Eosinophils % 2.9 Basophils % 0.4 Absolute Neutrophils 3.48 Absolute Lymphocytes 1.04 L Absolute Monocytes 0.48 Absolute Eosinophils 0.15 Absolute Basophils 0.02 VBG pH VBG pCO2 VBG pO2 VBG HCO3 VBG Total CO2 VBG O2 Saturation VBG Base Excess Sodium 131 L Potassium 3.9 Chloride 96 L Carbon Dioxide 25.7 Anion Gap 9.3 BUN 13 Creatinine 0.81 Estimated GFR/1.73 m2 >= 60.00 Glucose 251 H Lactate 1.1 Calcium 9.2 Total Bilirubin 0.4 AST 23 ALT 45 Alkaline Phosphatase 97 Creatine Kinase 152 Troponin I < 0.02 Total Protein 8.1 Albumin 4.0 Lipase 758 H TSH 1.56 Urine Color Urine Clarity Urine pH Ur Specific [place] Urine Protein Urine Ketones Urine Blood Urine Nitrite Urine Bilirubin Urine Urobilinogen Ur Leukocyte Esterase Urine RBC Urine WBC Ur Epithelial Cells Urine Crystals Urine Bacteria Urine Casts Urine Mucus Urine Other Ur Culture Indicated? Urine Glucose 09/10/18 09/10/18 16:53 17:12 WBC RBC Hgb Hct MCV MCH MCHC RDW Plt Count MPV Immature Gran % Neutrophils % Lymphocytes % Monocytes % Eosinophils % Basophils % Absolute Neutrophils Absolute Lymphocytes Absolute Monocytes Absolute Eosinophils Absolute Basophils VBG pH 7.41 VBG pCO2 41 VBG pO2 33 VBG HCO3 26 VBG Total CO2 23 VBG O2 Saturation 65 L VBG Base Excess 1.7 Sodium Potassium Chloride Carbon Dioxide Anion Gap BUN Creatinine Estimated GFR/1.73 m2 Glucose Lactate Calcium Total Bilirubin AST ALT Alkaline Phosphatase Creatine Kinase Troponin I Total Protein Albumin Lipase TSH Urine Color Yellow Urine Clarity Clear Urine pH 6.5 Ur Specific [place] 1.015 Urine Protein Negative Urine Ketones 40 H Urine Blood Trace-lysed H Urine Nitrite Negative Urine Bilirubin Negative Urine Urobilinogen 0.2 Ur Leukocyte Esterase Negative Urine RBC 0-2 Urine WBC Negative Ur Epithelial Cells Negative Urine Crystals Negative Urine Bacteria Rare Urine Casts Negative Urine Mucus Negative Urine Other Negative Ur Culture Indicated? No Urine Glucose 500 H Last Vital Signs Temp 37.1 C 09/10/18 21:46 Pulse 80 09/10/18 21:46 Resp 18 09/10/18 21:46 BP 138/74 09/10/18 21:46 Pulse Ox 95 09/10/18 21:46
[2018-09-10] MEDS: Albuterol 2.5 MG/3 ML INH SOLN VIAL UPD (23:56)
[2018-09-11] VITALS (10 sets, daily range): BP systolic 131–165; BP diastolic 77–91; PULSE 79–90; RESP 1–20; TEMP 36.4–37.3; O2SAT 92–96
[2018-09-11] MEDS: Temazepam 15 MG CAP PO (00:51)
[2018-09-11] MEDS: Normal Saline 1,000 ML 250 ML IV ×5 (02:05→23:50)
[2018-09-11] MEDS: Ketorolac 30 MG/ML VIAL IVP ×3 (05:27→21:06)
[2018-09-11 06:43] LABS: Abs Immature Grans 0.01 k/cumm (0.0-0.09); Absolute Basophil Count 0.02 k/cumm (0.0-0.2); Absolute Eosinophil Count 0.14 k/cumm (0.0-0.7); Absolute Lymphocyte Count 0.97 k/cumm (1.2-3.4); Absolute Monocyte Count 0.47 k/cumm (0.11-0.7); Absolute Neutrophil Count 4.89 k/cumm (1.2-6.7); Basophils % 0.3; Eosinophils % 2.2; HCT 43.2 % (40.0-50.0); HGB 14.6 g/dL (13.5-17.5); Immature Grans % 0.2; Lymphocytes % 14.9; Mean Corp. HGB Concentration 33.8 g/dL (32.0-36.0); Mean Corpuscular Hemoglobin 28.6 pg (27.0-33.0); Mean Corpuscular Volume 84.5 fL (80-95); Mean Platelet Volume 10.1 fL (8.0-11.0); Monocytes % 7.2; Neutrophils % 75.2; Platelet Count 218 x1000/uL (130-400); RBC 5.11 m/cumm (4.50-6.00); RBC Distribution Width 12.9 % (11.8-14.1)
[2018-09-11 06:56] LABS: ALT 32 U/L (12-78); AST 16 U/L (15-37); Albumin 3.4 g/dL (3.4-5.0); Alkaline Phosphatase 77 U/L (46-116); Anion Gap 9.8 mmol/L (3-11); BUN 10 mg/dL (7-18); Bilirubin, Total 0.4 mg/dL (0.2-1.0); CO2 24.2 mmol/L (21.0-32.0); CREATININE 0.71 mg/dL (0.70-1.30); Chloride 100 mmol/L (98-107); Glucose 209 mg/dL (70-100); Sodium 134 mmol/L (136-145)
[2018-09-11 06:58] LABS: Hemoglobin A1C 8.4 % (4.5-6.2)
[2018-09-11 07:00] LABS: Calculated LDL 77; Cholesterol 130 mg/dL (50-200); HDL Cholesterol 41 mg/dL (40-60); Lipase 183 U/L (73-393); Magnesium 1.8 mg/dL (1.8-2.4); Triglyceride 61 mg/dL (30-150)
--- NOTE | 2018-09-11 07:00 | DI.US_ITS ---
SYMPTOM/DIAGNOSIS: PANCREATITIS ABDOMEN ULTRASOUND: Comparison CT scan is 09/10/18. The aorta is of normal caliber. The inferior vena cava is unremarkable. The liver is normal in size. There does appear to be increased echogenicity of the liver suggesting fatty infiltration. No hepatic mass is seen sonographically. There is no evidence of cholelithiasis or biliary ductal dilatation. The common duct measures .4 cm. The pancreas is not well visualized due to overlying bowel. The visualized portions of the pancreas are unremarkable. The spleen is unremarkable. The kidneys are unremarkable except for bilateral simple renal cysts. IMPRESSION: 1. No evidence of cholelithiasis or biliary ductal dilatation. 2. Hepatic steatosis.
[2018-09-11] MEDS: Insulin Aspart 300 UNITS/3 ML PEN SC ×2 (08:56→12:35)
[2018-09-11] MEDS: Acetaminophen 325 MG TAB PO ×3 (12:34→20:37)
[2018-09-11] MEDS: Ondansetron 4 MG/2 ML VIAL IVP (12:35)
[2018-09-11] MEDS: Cyclobenzaprine 10 MG TAB PO ×3 (12:46→23:21)
--- NOTE | 2018-09-11 12:56 | PGE_ITS ---
Date of Service Date of service: 09/11/18 Time of Service: 12:44 Assessment and Plan (1) Acute pancreatitis: Start date: 09/11/18 Start time: 12:50 Current visit: Yes Status: Acute Continue NPO at this time, consider advancing diet this afternoon if not nauseated. Lipase normalized this am, no abdominal pain, pain is in thighs, arms and neck with muscle twitching in his thighs. Qualifiers: Pancreatitis type: drug induced Acute pancreatitis complication: no infection or necrosis Qualified Code(s): K85.30 - Drug induced acute pancreatitis without necrosis or infection (2) Diabetes mellitus type 2, controlled, without complications: Start date: 09/11/18 Start time: 12:52 Current visit: Yes Status: Acute monitor his blood sugars and treat w/ sliding scale novolog increased to moderate as am labs reveal blood glucose 209 Qualifiers: Diabetes mellitus halfway insulin use: without terminal make up operator use Qualified Code(s): E11.9 - Type 2 diabetes mellitus without complications (3) Asthma: Start date: 09/11/18 Start time: 12:53 Current visit: Yes Status: Chronic bronchospasm has resolved. His lungs are clear. continue nebs as needed if bronchospasm returns Qualifiers: Asthma severity: mild Asthma persistence: intermittent Asthma complication type: uncomplicated Qualified Code(s): J45.20 - Mild intermittent asthma, uncomplicated (4) GERD (gastroesophageal reflux disease): Start date: 09/11/18 Start time: 12:53 Current visit: Yes Status: Chronic will give iv protonix for tonight but when he is able to resume oral meds/foods then he will go back on his prilosec Qualifiers: Esophagitis presence: esophagitis presence not specified Qualified Code(s): K21.9 - Gastro-esophageal reflux disease without esophagitis (5) Muscle twitching: Start date: 09/11/18 Start time: 12:54 Current visit: Yes Status: Acute he seems to have muscle twitching in his thighs and arms more significant in his thighs, flexiril 10 mg po TID PRN for muscles, sodium was a little low, continue fluids, concern for lyme disease, latent, titer ordered. (6) DVT prophylaxis: Start date: 09/11/18 Start time: 12:55 Current visit: Yes Status: Acute TEDs SCDs Subjective Patient reports: other (muscle twitching and cramps) Interval history since last seen: Mr. Yo is stating cramps with muscle twitching. He is not having abdominal pain, he is feeling nauseated. We will continue NPO at this time and reevaluate this afternoon. His lipase has normalized and his pain seems to be in mainly in his thighs, arms and neck. He is having visible muscle twitching, we will try a flexiril po. He is also c/o day four of not being able to sleep, hopefully the flexiril will help if not consider a different medication. His was present and states he spends a lot of time out in the field at their house and they have many ticks in the grass, he denies a rash but question if this is latent lyme a titer has been ordered. Continue hydration, pain medication, npo, if he is feeling better this afternoon consider advancing him to clears, and keep overnight. Exam Const General: cooperative, no acute distress and well groomed Nutritional Appearance: well nourished Orientation: alert, awake and oriented x3 HENMT Head: normal to inspection, no palpable skull fracture, normocephalic and atraumatic Ears: hearing grossly normal bilaterally, external ears normal and TM's normal bilaterally General nose exam: external nose normal, nares normal and no nasal discharge Face and sinus: normal facial exam, sinuses nontender and face symmetric Mouth: oral mucosae normal, lip normal, tongue normal, oropharynx normal and moist mucous membranes Teeth and gingiva: dentition normal and gingiva normal Throat: posterior oropharynx normal and uvula midline Eyes General: appearance normal, both eyes and all related structures Alignment and Position: alignment normal Periorbital: periorbital findings normal Eyelids: eyelids normal Conjunctivae: conjunctivae normal Sclera: sclerae normal Cornea: corneas normal Pupils: PERRL, normal by confrontation and accommodation normal EOM: EOM intact bilaterally Neck Neck: normal visual inspection, full ROM, no lymphadenopathy, trachea midline, supple and no JVD Thyroid: thyroid normal Carotids: normal carotid upstroke Lymphatic: no lymphadenopathy noted Chest Chest: normal inspection of the chest Resp Effort & Inspection: normal respiratory effort and able to speak in complete sentences Auscultation: clear to auscultation bilaterally Cardio Jugular venous pressure: no JVD Palpation: normal PMI Rate: regular rate Rhythm: regular rhythm Heart Sounds: S1 normal, S2 normal and normal, physiologic split S2 Pulses: normal peripheral pulses GI Inspection: normal to inspection Palpation: soft, no hepatosplenomegaly and nontender Percussion: normal to percussion Auscultation: normal bowel sounds Skin General skin exam: no rashes or lesions noted, elasticity normal and turgor normal Lesions: no lesions Rashes: no rashes Trauma: no lacerations or abrasions Hair: normal Nails: normal Neuro General: alert, awake, oriented x3, moves all extremities and no focal motor deficits Cognition: normal cognition Speech: speech normal Gait: normal gait Motor: muscle tone normal throughout, strength 5/5 throughout, no pronator drift, no movement abnormalities noted and no fasciculations Sensory Exam: no sensory deficits noted Extrem General: normal to inspection, full ROM, normal capillary refill, no joint enlargement, no clubbing, cyanosis or edema, no calf tenderness bilaterally and other (muscle twitching to thighs) Psych Appearance: grossly normal Mental Status: mental status grossly normal Speech and Movement: speech and movement normal Mood: congruent mood Affect: normal affect Attitude: cooperative Thought Process: normal Thought Content: normal Insight: insight good Judgment: judgment good Objective Objective Clinical Data: Abnormal lab results 09/10/18 09/10/18 09/10/18 Range/Units 16:53 16:53 16:53 Absolute Lymphocytes 1.04 L (1.2-3.4) k/cumm VBG O2 Saturation 65 L (70-80) % Sodium 131 L (136-145) mmol/L Chloride 96 L (98-107) mmol/L Glucose 251 H (70-100) mg/dL Hemoglobin A1c (4.5-6.2) % Calcium (8.5-10.1) mg/dL Lipase 758 H (73-393) U/L Urine Ketones (Negative) mg/dL Urine Blood (Negative) Urine Glucose (Negative) mg/dL 09/10/18 09/11/18 09/11/18 Range/Units 17:12 06:15 06:15 Absolute Lymphocytes (1.2-3.4) k/cumm VBG O2 Saturation (70-80) % Sodium 134 L (136-145) mmol/L Chloride (98-107) mmol/L Glucose 209 H (70-100) mg/dL Hemoglobin A1c 8.4 H (4.5-6.2) % Calcium 8.0 L (8.5-10.1) mg/dL Lipase (73-393) U/L Urine Ketones 40 H (Negative) mg/dL Urine Blood Trace-lysed H (Negative) Urine Glucose 500 H (Negative) mg/dL 09/11/18 Range/Units 06:15 Absolute Lymphocytes 0.97 L (1.2-3.4) k/cumm VBG O2 Saturation (70-80) % Sodium (136-145) mmol/L Chloride (98-107) mmol/L Glucose (70-100) mg/dL Hemoglobin A1c (4.5-6.2) % Calcium (8.5-10.1) mg/dL Lipase (73-393) U/L Urine Ketones (Negative) mg/dL Urine Blood (Negative) Urine Glucose (Negative) mg/dL Vital Signs Temperature 37.3 C 09/11/18 07:40 Temperature Source Tympanic 09/11/18 07:40 Pulse 81 09/11/18 07:40 Pulse Rhythm Regular 09/11/18 08:47 Pulse 85 09/10/18 21:10 Respiratory Rate 18 09/11/18 07:40 Respiratory Effort Non-Labored 09/11/18 08:47 Respiratory Depth Normal 09/11/18 08:47 Respiratory Pattern Normal 09/11/18 08:47 Blood Pressure 156/85 H 09/11/18 07:40 Blood Pressure Mean 97 09/10/18 21:01 Blood Pressure Position Sitting 09/10/18 16:05 Pulse Oximetry 96 09/11/18 07:40 Oxygen Delivery Method Room Air 09/11/18 07:40 Oxygen Flow Rate 0 09/11/18 07:40 Pain Level 4 09/11/18 12:34 Intake & Output 09/10/18 09/11/18 09/11/18 23:59 11:59 23:59 Intake Total 2099 Balance 2099 Weight 101.605 kg 102.9 kg Intake: IV 2099 Other: Urine Color Yellow Urine Appearance Clear Clear Urine Odor Normal Voiding Methods Toilet Laboratory Results WBC 6.50 k/cumm (4.4-10.8) 09/11/18 06:15 RBC 5.11 m/cumm (4.50-6.00) 09/11/18 06:15 Hgb 14.6 g/dL (13.5-17.5) 09/11/18 06:15 Hct 43.2 % (40.0-50.0) 09/11/18 06:15 MCV 84.5 fL (80-95) 09/11/18 06:15 MCH 28.6 pg (27.0-33.0) 09/11/18 06:15 MCHC 33.8 g/dL (32.0-36.0) 09/11/18 06:15 RDW 12.9 % (11.8-14.1) 09/11/18 06:15 Plt Count 218 x1000/uL (130-400) 09/11/18 06:15 MPV 10.1 fL (8.0-11.0) 09/11/18 06:15 Immature Gran % 0.2 09/11/18 06:15 Neutrophils % 75.2 09/11/18 06:15 Lymphocytes % 14.9 09/11/18 06:15 Monocytes % 7.2 09/11/18 06:15 Eosinophils % 2.2 09/11/18 06:15 Basophils % 0.3 09/11/18 06:15 Absolute Neutrophils 4.89 k/cumm (1.2-6.7) 09/11/18 06:15 Absolute Lymphocytes 0.97 k/cumm (1.2-3.4) L 09/11/18 06:15 Absolute Monocytes 0.47 k/cumm (0.11-0.7) 09/11/18 06:15 Absolute Eosinophils 0.14 k/cumm (0.0-0.7) 09/11/18 06:15 Absolute Basophils 0.02 k/cumm (0.0-0.2) 09/11/18 06:15 VBG pH 7.41 (7.32-7.43) 09/10/18 16:53 VBG pCO2 41 mm/Hg (34-47) 09/10/18 16:53 VBG pO2 33 mm/Hg (28-44) 09/10/18 16:53 VBG HCO3 26 mmol/L (22-28) 09/10/18 16:53 VBG Total CO2 23 mmol/L (22-29) 09/10/18 16:53 VBG O2 Saturation 65 % (70-80) L 09/10/18 16:53 VBG Base Excess 1.7 mmol/L (-3-3) 09/10/18 16:53 Sodium 134 mmol/L (136-145) L 09/11/18 06:15 Potassium 4.0 mmol/L (3.5-5.1) 09/11/18 06:15 Chloride 100 mmol/L (98-107) 09/11/18 06:15 Carbon Dioxide 24.2 mmol/L (21.0-32.0) 09/11/18 06:15 Anion Gap 9.8 mmol/L (3-11) 09/11/18 06:15 BUN 10 mg/dL (7-18) 09/11/18 06:15 Creatinine 0.71 mg/dL (0.70-1.30) 09/11/18 06:15 Estimated GFR/1.73 m2 >= 60.00 (mL/min/1.73m2) 09/11/18 06:15 Glucose 209 mg/dL (70-100) H 09/11/18 06:15 Hemoglobin A1c 8.4 % (4.5-6.2) H 09/11/18 06:15 Lactate 1.1 mmol/l (0.6-1.4) 09/10/18 16:53 Calcium 8.0 mg/dL (8.5-10.1) L 09/11/18 06:15 Magnesium 1.8 mg/dL (1.8-2.4) 09/11/18 06:15 Total Bilirubin 0.4 mg/dL (0.2-1.0) 09/11/18 06:15 AST 16 U/L (15-37) 09/11/18 06:15 ALT 32 U/L (12-78) 09/11/18 06:15 Alkaline Phosphatase 77 U/L (46-116) 09/11/18 06:15 Creatine Kinase 152 U/L (39-308) 09/10/18 16:53 Troponin I < 0.02 ng/mL (0.00-0.06) 09/10/18 16:53 Total Protein 7.0 g/dL (6.4-8.2) 09/11/18 06:15 Albumin 3.4 g/dL (3.4-5.0) 09/11/18 06:15 Triglycerides 61 mg/dL (30-150) 09/11/18 06:15 Total Cholesterol 130 mg/dL (50-200) 09/11/18 06:15 LDL Cholesterol, Calc 77 09/11/18 06:15 HDL Cholesterol 41 mg/dL (40-60) 09/11/18 06:15 Lipase 183 U/L (73-393) 09/11/18 06:15 TSH 1.56 uIU/mL (0.358-3.74) 09/10/18 16:53 Urine Color Yellow (Yellow) 09/10/18 17:12 Urine Clarity Clear 09/10/18 17:12 Urine pH 6.5 (5-8) 09/10/18 17:12 Ur Specific [place] 1.015 (1.005-1.025) 09/10/18 17:12 Urine Protein Negative mg/dL (Negative) 09/10/18 17:12 Urine Ketones 40 mg/dL (Negative) H 09/10/18 17:12 Urine Blood Trace-lysed (Negative) H 09/10/18 17:12 Urine Nitrite Negative (Negative) 09/10/18 17:12 Urine Bilirubin Negative (Negative) 09/10/18 17:12 Urine Urobilinogen 0.2 EU/dL (Up TO 0.2) 09/10/18 17:12 Ur Leukocyte Esterase Negative (Negative) 09/10/18 17:12 Urine RBC 0-2 (0-2) 09/10/18 17:12 Urine WBC Negative HPF (0-5) 09/10/18 17:12 Ur Epithelial Cells Negative HPF (Negative) 09/10/18 17:12 Urine Crystals Negative HPF (Negative) 09/10/18 17:12 Urine Bacteria Rare HPF (Negative) 09/10/18 17:12 Urine Casts Negative LPF (Negative) 09/10/18 17:12 Urine Mucus Negative (Negative) 09/10/18 17:12 Urine Other Negative (Negative) 09/10/18 17:12 Ur Culture Indicated? No 09/10/18 17:12 Urine Glucose 500 mg/dL (Negative) H 09/10/18 17:12
[2018-09-11 13:00] LABS: Lactate-non-spesis 0.9 mmol/l (0.6-1.4)
[2018-09-11] MEDS: Mometasone 220 MCG 14 DOSE INHALER 2 PUFF IH ×2 (13:26→20:40)
[2018-09-11 13:30] LABS: Procalcitonin < 0.1 ng/mL
--- NOTE | 2018-09-11 14:11 | PHARADMIT ---
Addendum entered by Candelario Reeves III 09/12/18 11:11: Pharmacy Note Subjective Patient does not have Pancreatitis. believes symptoms where ADR from Victoza. Neurology consulted to r/o ALS vs Lymes disease. Urine shows Gram + cocci. Lymes serology still pending Objective VS-OK Na-133 K+3.7 Mag-1.9 Other Labs -WNL wGT-103.1 kg No BM yet Assessment On IV Doxycycline. 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
[2018-09-11 15:24] LABS: C-Reactive Protein 0.18 mg/dL (0.0-0.3); Creatine Kinase 135 U/L (39-308)
--- NOTE | 2018-09-11 15:35 | DI.RAD_ITS ---
SYMPTOM/DIAGNOSIS: SOB CHEST X-RAY: PA AND LATERAL. COMPARISON 10/25/14 Heart size and pulmonary vasculature are within normal limits. The lungs are clear and well expanded. No focal infiltrates, effusions or pneumothoraces are identified. DISH is seen in the thoracic spine. IMPRESSION: No definite acute pulmonary process.
[2018-09-11 16:04] LABS: ESR 23 MM/HR (1-20)
--- NOTE | 2018-09-11 16:21 | DI.VRAD_ITS ---
EXAM: XR Chest, 2 Views EXAM DATE/TIME: 09/11/2018 3:44 PM CLINICAL HISTORY: 63 years old, male; Signs and symptoms; Shortness of breath TECHNIQUE: Imaging protocol: XR of the chest, 2 views. COMPARISON: CR CHEST 2 VIEWS PA,LAT 10/25/2014 10:[address] scan, 09/10/2018. FINDINGS: Lungs: Scarring at the left lung base is unchanged. On the lateral radiograph, there is a new 1.5 cm tubular density overlying the retrosternal clear space. Pleural space: No pneumothorax. No effusion. Heart/Mediastinum: Cardiomediastinal contours and hilar shadows are unchanged. Bones/joints: There are skeletal degenerative changes. There is unchanged flowing ossification of the anterior longitudinal ligament of the thoracic spine most consistent with diffuse idiopathic skeletal hyperostosis (DISH). IMPRESSION: 1. On the lateral radiograph, there is a new 1.5 cm tubular density overlying the retrosternal clear space. This could represent a small focus of atelectasis. Given that it is new from 2014, short term followup could be considered. 2. Other unchanged findings as above. Dictated and Authenticated by: Leatha Owusu MD. Ordering:BRITTANIE Carmen MD
[2018-09-11] MEDS: DOXYCYCLINE 100 MG in Normal Saline 100 ML IVPB (16:28)
[2018-09-11] MEDS: MAGNESIUM SULFATE 2 GM/50 ML BAG IVPB (16:29)
[2018-09-11] MEDS: Calcium Carbonate 1.5 GM TAB 3 GM PO (16:38)
--- NOTE | 2018-09-11 17:15 | PDOC.CMIN ---
Care Management Initial Assess REASON FOR HOSPITALIZATION:: Pancreatitis PAST MEDICAL HISTORY/PAST SURGICAL HISTORY:: Asthma, BPH, compulsive disorder, depression with anxiety, GERD, colonic polyps, non-insulin dependent type 2 diabetes mellitus, overweight, seasonal allergies, tubular adenoma of colon, cataract extraction, nasal polypectomy, colonscopy, knee surgery PREVIOUS FUNCTIONAL STATUS/SOCIAL/FAMILY SUPPORTS:: Umair resides in [place], [place] with his , Marcy. CURRENT FUNCTIONAL STATUS:: Umair was not feeling well when CM met with him. He reported ongoing pain and nausea and concern over the unknowns of his symptomology. His was at his bedside, supportive and attentive. ADVANCE DIRECTIVES:: On file, , Radha as Agent. Has patient been provided with information about the portal?: Yes Did the patient sign up for the portal?: No CODE STATUS:: Full Code INSURANCE COVERAGE / FINANCIAL ISSUES:: [facility]. BC/BS. BC/BS Other CURRENT HOME/COMMUNITY SERVICES/EQUIPMENT:: No current services or equipment. PRIMARY CARE PHYSICIAN:: Camilo Ruiz POTENTIAL DISCHARGE NEEDS:: Follow up appointments. PATIENT/FAMILY EDUCATION NEEDS:: Review of discharge instructions, discuss Ask Me Three. ANTICIPATED BARRIERS TO DISCHARGE:: None identified. TRANSPORTATION:: Via private vehicle with his . PLAN:: Umair will continue to be closely monitored. He is being treated empirically with IV abx for concern of Lyme disease. It was first assumed he was experiencing pancreatitis due to his medications for DM. Undetermined treatment course at this time, which has Umair feeling unsure and concerned. CM provided validation and reassurance in his care. CM will continue to follow.
--- NOTE | 2018-09-11 17:58 | INITIAL_ITS ---
Care Management Initial Assess REASON FOR HOSPITALIZATION:: Pancreatitis PAST MEDICAL HISTORY/PAST SURGICAL HISTORY:: Asthma, BPH, compulsive disorder, depression with anxiety, GERD, colonic polyps, non-insulin dependent type 2 diabetes mellitus, overweight, seasonal allergies, tubular adenoma of colon, cataract extraction, nasal polypectomy, colonscopy, knee surgery PREVIOUS FUNCTIONAL STATUS/SOCIAL/FAMILY SUPPORTS:: Umair resides in [place], [place] with his , Marcy. CURRENT FUNCTIONAL STATUS:: Umair was not feeling well when CM met with him. He reported ongoing pain and nausea and concern over the unknowns of his symptomology. His was at his bedside, supportive and attentive. ADVANCE DIRECTIVES:: On file, , Radha as Agent. Has patient been provided with information about the portal?: Yes Did the patient sign up for the portal?: No CODE STATUS:: Full Code INSURANCE COVERAGE / FINANCIAL ISSUES:: [facility]. BC/BS. BC/BS Other CURRENT HOME/COMMUNITY SERVICES/EQUIPMENT:: No current services or equipment. PRIMARY CARE PHYSICIAN:: Camilo Ruiz POTENTIAL DISCHARGE NEEDS:: Follow up appointments. PATIENT/FAMILY EDUCATION NEEDS:: Review of discharge instructions, discuss Ask Me Three. ANTICIPATED BARRIERS TO DISCHARGE:: None identified. TRANSPORTATION:: Via private vehicle with his . PLAN:: Umair will continue to be closely monitored. He is being treated empirically with IV abx for concern of Lyme disease. It was first assumed he was experiencing pancreatitis due to his medications for DM. Undetermined treatment course at this time, which has Umair feeling unsure and concerned. CM provided validation and reassurance in his care. CM will continue to follow.
[2018-09-11] MEDS: Pantoprazole 40 MG VIAL IVP (21:36)
[2018-09-12] VITALS (10 sets, daily range): BP systolic 154–169; BP diastolic 78–89; PULSE 80–89; RESP 16–18; TEMP 36.4–37.1; O2SAT 97–98
[2018-09-12] MEDS: Acetaminophen 325 MG TAB PO ×4 (00:55→14:10)
[2018-09-12] MEDS: Normal Saline 1,000 ML 250 ML IV ×2 (03:11→08:11)
[2018-09-12] MEDS: Ketorolac 30 MG/ML VIAL IVP ×3 (03:11→15:15)
[2018-09-12] MEDS: DOXYCYCLINE 100 MG in Normal Saline 100 ML IVPB ×2 (03:12→16:18)
[2018-09-12] MEDS: Insulin Aspart 300 UNITS/3 ML PEN SC ×2 (06:12→11:41)
[2018-09-12 07:20] LABS: Abs Immature Grans 0.01 k/cumm (0.0-0.09); Absolute Basophil Count 0.02 k/cumm (0.0-0.2); Absolute Eosinophil Count 0.24 k/cumm (0.0-0.7); Absolute Lymphocyte Count 0.97 k/cumm (1.2-3.4); Absolute Monocyte Count 0.51 k/cumm (0.11-0.7); Absolute Neutrophil Count 3.79 k/cumm (1.2-6.7); Basophils % 0.4; Eosinophils % 4.3; HCT 39.7 % (40.0-50.0); HGB 13.8 g/dL (13.5-17.5); Immature Grans % 0.2; Lymphocytes % 17.5; Mean Corp. HGB Concentration 34.8 g/dL (32.0-36.0); Mean Corpuscular Hemoglobin 29.1 pg (27.0-33.0); Mean Corpuscular Volume 83.8 fL (80-95); Mean Platelet Volume 9.6 fL (8.0-11.0); Monocytes % 9.2; Neutrophils % 68.4; Platelet Count 198 x1000/uL (130-400); RBC 4.74 m/cumm (4.50-6.00); RBC Distribution Width 12.6 % (11.8-14.1); White Blood Cell Count 5.54 k/cumm (4.4-10.8)
[2018-09-12 07:33] LABS: Anion Gap 11.9 mmol/L (3-11); BUN 8 mg/dL (7-18); CO2 22.1 mmol/L (21.0-32.0); Calcium 8.3 mg/dL (8.5-10.1); Chloride 99 mmol/L (98-107); Glucose 153 mg/dL (70-100); Magnesium 1.9 mg/dL (1.8-2.4); Potassium 3.7 mmol/L (3.5-5.1); Sodium 133 mmol/L (136-145)
[2018-09-12] MEDS: Mometasone 220 MCG 14 DOSE INHALER 2 PUFF IH (08:05)
[2018-09-12] MEDS: Cyclobenzaprine 10 MG TAB PO ×2 (08:11→12:52)
--- NOTE | 2018-09-12 08:20 | PDOC.CMPRO ---
- If Service Date Differs Date of service: 09/12/18 Time of Service: 08:20 Care Management Progress Note S/O:Umair was sitting up in bed during CM visit. He states that he has had a long history of muscle cramps, aches and pains but that they are worse now. He did state that the medications that he is receiving help. He also mentioned that he has a family history of ALS but not on his side of the family. He is waiting for the neurologist to see him this afternoon. A:Umair is a 63 year old gentleman admitted to [facility] on 09/10 with a diagnosis of pancreatitis. P:Umair will continue to be closely monitored. He is being treated empirically with IV abx for concern of Lyme disease. It was first assumed he was experiencing pancreatitis due to his medications for DM. Undetermined treatment course at this time, which has Umair feeling unsure and concerned. will continue to provide support to patient and family and discharge plan of care.
[2018-09-12 13:46] LABS: Lyme Ab w Rflx to Lyme Confirm Negative
[2018-09-12 13:52] LABS: ANA Interpretation Negative (NEGAT)
--- NOTE | 2018-09-12 16:36 | W.PM.DS.N ---
Date of service: 09/12/18 Time of Service: 16:37 DS: Diagnosis Discharge Diagnosis (1) Acute pancreatitis: Status: Acute (2) Diabetes mellitus type 2, controlled, without complications: Status: Acute (3) Asthma: Status: Chronic (4) GERD (gastroesophageal reflux disease): Status: Chronic (5) Muscle twitching: Status: Acute Discharge Plan Disposition Patient Disposition: HOME Condition: Improving Discharge Details Reason For Visit: PANCREATITIS Admit Date/Time: 09/10/18 20:53 Admit Provider: Gumaro Fleming Attending Provider: Gumaro Fleming Primary Care Provider: Camilo Ruiz Hospital Course Hospital Course: Mr Valdivia is a 63 year old male with PMHx of NIDDM2, asthma, GERD, observed on [facility] hospitalist service from 09/10/18 until 09/12/18 for initially suspected acute pancreatitis. However, the patient's abdominal pain resolved by 09/11, and he is able to tolerate a regular consistency diet. It is felt that this was likely triggered by victoza, which the patient had already stopped taking briefly prior to his presentation at [facility]. On 09/11 and 09/12/18, his chief complaint to us is, in fact, twitching and pain in his thighs and arms. The twitching and pain are both anterior and posterior. He has a strong family history of ALS and is concerned about that, but also endorses a positional component to his symptoms (thinks it is also triggered by his mattress and a new one is coming). There is a suspicion that he has had a tick bite and has Lyme disease. Finally, inflammatory myopathy studies were ordered. He was empirically started on doxycycline for presumed Lyme disease. Neurology consultation was not available prior to patient's discharge home, but should be obtained as outpatient - he is being referred to both [facility] and Dr Verma. His pain is controlled with tylenol, NSAIDS, flexeril. We are trialing percocet prior to discharge to ensure the patient has a breakthrough pain medication since he was requiring IV morphine. He is medically stable for discharge home today with neurology and PCP follow ups. He is instructed not to drive or operate heavy machinery and not to drink alcohol. Home Meds and New Rx's Prescriptions: New acetaminophen [Tylenol] 325 mg Tablet 325 - 650 mg PO Q4H PRN PRN (Reason: pain) Qty: 0 RF: 0 cyclobenzaprine 10 mg Tablet 10 mg PO TID PRN PRNQty: 30 RF: 0 docusate sodium [Colace] 100 mg Capsule 100 mg PO BID Qty: 10 RF: 0 doxycycline hyclate 100 mg tablet 100 mg PO BID Qty: 40 RF: 0 ibuprofen 600 mg tablet 600 mg PO TID Qty: 30 RF: 0 oxycodone-acetaminophen [Percocet] 5-325 mg tablet 1 tab PO Q6H PRN (Reason: pain) Qty: 20 RF: 0 pantoprazole [Protonix] 40 mg tablet,delayed release (DR/EC) 40 mg PO DAILY Qty: 30 RF: 0 Continued glimepiride 4 mg tablet 4 mg PO QAM RF: 0 multivitamin [Daily Multi-Vitamin] tablet 1 tab PO DAILY RF: 0 Prilosec OTC 20 MG tablet,delayed release (DR/EC) 20 mg PO DAILY RF: 0 albuterol sulfate [ProAir HFA] 200 PUFF HFA aerosol inhaler 1 - 2 puff Inhalation .Q4-6H PRN RF: 0 Flovent HFA 120 PUFF HFA aerosol inhaler 2 puff Inhalation BID RF: 0 finasteride [Propecia] 1 MG tablet 1 mg PO DAILY RF: 0 loratadine [Claritin Liqui-Gel] 10 MG capsule 1 cap PO DAILY RF: 0 ondansetron 4 mg tablet,disintegrating 4 mg PO BID-TID PRN (Reason: nausea and vomiting) Qty: 10 RF: 0 Discontinued diphenhydramine-acetaminophen [Tylenol PM Extra Strength] 25-500 mg Tablet 2 tab PO PRN PRNRF: 0 Discharge Instructions Instructions: Lyme Disease (GEN), Lower Back Exercises (GEN) Additional Instructions: Do not drink alcohol, drive, or operate heavy machinery while taking percocet and flexeril. Return to the hospital with worsening symptoms, fever, bleeding, chest pain, or shortness of breath. Doxycycline causes sun sensitivity - stay away from the sun and wear sunscreen. Follow up with your PCP and with neurology. Activity:: Activity as Tolerated Equipment/Supplies:: No Equipment Needed Diet:: Carb Counting Discharge Orders Discharge Orders: Discharge Order (Routine); Ordered 09/12/18 Ordered By: Starr Cruz Exam Narrative Exam Narrative: General: Very pleasant middle-aged male, A&OX3, NAD HEENT: EOMI, MMM Heart: RRR, no m/r/g Lungs: CTAB GI: abdomen is soft, nontender, nondistended Extremities: no e/c/c BLE's - 5/5 strenght throughout DS: Data Vitals/I&O Vitals and I&O: Vital Signs Temperature 36.4 C L 09/12/18 15:57 Temperature Source Tympanic 09/12/18 15:57 Pulse 80 09/12/18 15:57 Pulse Rhythm Regular 09/12/18 09:00 Pulse 85 09/10/18 21:10 Respiratory Rate 18 09/12/18 15:57 Respiratory Effort Non-Labored 09/12/18 09:00 Respiratory Depth Normal 09/12/18 09:00 Respiratory Pattern Normal 09/12/18 09:00 Blood Pressure 158/84 H 09/12/18 15:57 Blood Pressure Mean 97 09/10/18 21:01 Blood Pressure Position Sitting 09/10/18 16:05 Pulse Oximetry 98 09/12/18 15:57 Oxygen Delivery Method Room Air 09/12/18 15:57 Oxygen Flow Rate 0 09/12/18 15:57 Pain Level 3 09/12/18 15:56 Intake & Output 09/11/18 09/12/18 09/12/18 23:59 11:59 23:59 Intake Total 2100 / 5100 3600 / 3600 Balance 2100 / 5100 3600 / 3600 Weight 103.1 kg Intake: IV 2100 / 5100 3100 / 3100 Oral 500 / 500 Other: Urine Appearance Clear Completed studies during hospitalization [Text1]: CT abdomen/pelvis 09/10/18: Incidental findings in the abdomen as described above (There are bilateral renal cysts. There is a nonobstructing 2 mm stone in the upper pole of the left kidney. No hydronephrosis is seen. There is a mildly prominent lymph node seen in the mesentery. These are likely reactive. No significant abdominal or pelvic adenopathy is seen.) 2. No evidence of an acute abdominal or pelvic process. US abdomen 09/11/18: 1. No evidence of cholelithiasis or biliary ductal dilatation. 2. Hepatic steatosis. CXR 09/11/18: No definite acute pulmonary process. Pending studies at discharge: Inflammatory myopathy markers Labs on day of discharge: Labs from last 24 hours 09/12/18 09/12/18 09/12/18 07:05 07:05 07:05 WBC 5.54 RBC 4.74 Hgb 13.8 Hct 39.7 L MCV 83.8 MCH 29.1 MCHC 34.8 RDW 12.6 Plt Count 198 MPV 9.6 Immature Gran % 0.2 Neutrophils % 68.4 Lymphocytes % 17.5 Monocytes % 9.2 Eosinophils % 4.3 Basophils % 0.4 Absolute Neutrophils 3.79 Absolute Lymphocytes 0.97 L Absolute Monocytes 0.51 Absolute Eosinophils 0.24 Absolute Basophils 0.02 Sodium 133 L Potassium 3.7 Chloride 99 Carbon Dioxide 22.1 Anion Gap 11.9 H BUN 8 Creatinine 0.60 L Estimated GFR/1.73 m2 >= 60.00 Glucose 153 H Calcium 8.3 L Magnesium 1.9 ISAAC Titer ISAAC Titer 2 ISAAC Titer 3 ISAAC Interpretation SS-A Antibody Pending Sm ([place]) Antibody Pending TRAVEL WRITER Antibody Pending Lyme Disease Antibody 09/11/18 09/11/18 15:00 12:53 WBC RBC Hgb Hct MCV MCH MCHC RDW Plt Count MPV Immature Gran % Neutrophils % Lymphocytes % Monocytes % Eosinophils % Basophils % Absolute Neutrophils Absolute Lymphocytes Absolute Monocytes Absolute Eosinophils Absolute Basophils Sodium Potassium Chloride Carbon Dioxide Anion Gap BUN Creatinine Estimated GFR/1.73 m2 Glucose Calcium Magnesium ISAAC Titer Not Applicable ISAAC Titer 2 Not Applicable ISAAC Titer 3 Not Applicable ISAAC Interpretation Negative SS-A Antibody Sm ([place]) Antibody TRAVEL WRITER Antibody Lyme Disease Antibody Negative Preliminary micro results at discharge 09/10/18 17:12 Urine Culture - Preliminary Urine - Voided Enterococcus Species Gram Positive Ledy [facility] Medical History History of colonic polyps (Chronic) Compulsive disorder (Acute) Depression with anxiety (Acute) Non-insulin dependent type 2 diabetes mellitus (Acute) Overweight (Acute) Tubular adenoma of colon (Acute) Asthma BPH (benign prostatic hyperplasia) GERD (gastroesophageal reflux disease) Seasonal allergies Surgical History History of nasal polypectomy (Resolved) Hx of knee surgery (Acute) History of cataract extraction (Chronic) Hx of colonoscopy (Chronic) Social History Smoking/Tobacco Use Status: Former Tobacco Use Quit Date: 08/07/03 Pack-years: 17 Tobacco: How many years used: 17 Alcohol Intake: current Alcohol Intake frequency: holidays/special occasions only Alcohol type: beer and hard liquor Drug use: Never Substance use type: does not use Do you feel safe at home: Yes Do you feel safe in your relationship?: Yes
[2018-09-12] MEDS: oxyCODONE 5 mg/Acetaminophen 325 mg TAB 1 TAB PO (17:51)
[2018-09-12 23:50] LABS: Anaplasma phagocytophilum Negative (Negative); B. miyamotoi PCR Negative (Negative); Babesia divergens/MO-1 Negative (Negative); Babesia duncani Negative (Negative); Babesia microti Negative (Negative); Ehrlichia chaffeensis Negative (Negative); Ehrlichia ewingii/canis Negative (Negative); Ehrlichia muris eauclairensis Negative (Negative)
[2018-09-16 14:40] LABS: RNP Ab, IgG 1.7 Units (<20); SS-A Antibody 1.4 Units (<20); Sm (Smith) Ab, IgG 1.4 Units (<20)
== END 2018-09-12 19:05 | disposition home or self-care (01) ==
LOC: ER 21:04 → MS 23:08
PROVIDERS: Nurse Practitioner Family; Admitting Provider Internal Medicine; Emergency Provider Student in an Organized Health Care Education/Training Program; PCP Internal Medicine; Visit Provider Internal Medicine
DX: K85.30 Drug induced acute pancreatitis without necrosis or infection (principal); M79.10 Myalgia, unspecified site; T38.3X5A Adverse effect of insulin and oral hypoglycemic [antidiabetic] drugs, initial encounter; E11.65 Type 2 diabetes mellitus with hyperglycemia; J45.20 Mild intermittent asthma, uncomplicated; K21.9 Gastro-esophageal reflux disease without esophagitis; R25.3 Fasciculation; R11.2 Nausea with vomiting, unspecified; R10.13 Epigastric pain; R53.83 Other fatigue; Z82.0 Family history of epilepsy and other diseases of the nervous system; Z79.84 Long term (current) use of oral hypoglycemic drugs; Z87.891 Personal history of nicotine dependence; A69.20 Lyme disease, unspecified
CPT/HCPCS: 36415; 80048; 80053; 80061; 82550; 82805; 83690; 83721; 84145; 85652; 87077; 93005; 94640; 96361; 96365; 96375; 99217; 99220; 99233; 99285; 71046; 74177; 76700; 81003; 81015; 83036; 83605; 83735; 84443; 84484; 85025; 86038; 86140; 86235; 86618; 87086; 87186; 87798; 93010; 99226; G0378; J0131; J1885; J2405; J3490; J7613

== ENCOUNTER 2018-09-18 09:30 | Outpatient (CLI) | payer BC, SELFPAY ==
[2018-09-18 11:37] LABS: Ferritin 358 ng/mL (8-388)
== END 2018-09-18 09:50 ==
PROVIDERS: PCP Internal Medicine; Visit Provider Psychiatry & Neurology Neurology
DX: G25.81 Restless legs syndrome (principal)
CPT/HCPCS: 36415; 82728

== ENCOUNTER 2019-04-15 11:45 | Outpatient (REF) | payer BC, SELFPAY ==
[2019-04-15 12:48] LABS: Hemoglobin A1C 8.6 % (3.8-5.6)
== END 2019-04-15 12:05 ==
LOC: NCHCN 11:45
PROVIDERS: PCP Internal Medicine; Visit Provider Internal Medicine
DX: E11.65 Type 2 diabetes mellitus with hyperglycemia (principal)
CPT/HCPCS: 83036

== ENCOUNTER 2019-12-18 21:15 | Emergency (ER) | payer BC, SELFPAY ==
[2019-12-18] VITALS (16 sets, daily range): BP systolic 113–148; BP diastolic 63–85; PULSE 80–107; RESP 4–28; TEMP 36.1; O2SAT 88–96
[2019-12-18] MEDS: Albuterol/Ipratropium 3 ML UPD VIAL UPD (21:48)
[2019-12-18] MEDS: Albuterol 2.5 MG/3 ML INH SOLN VIAL UPD (21:54)
[2019-12-18 21:59] LABS: Abs Immature Grans 0.02 10^3/uL (0.0-0.06); Absolute Basophil Count 0.05 10^3/uL (0.0-0.2); Absolute Eosinophil Count 0.72 10^3/uL (0.0-0.7); Absolute Lymphocyte Count 1.78 10^3/uL (1.2-3.4); Absolute Monocyte Count 0.57 10^3/uL (0.1-0.8); Absolute Neutrophil Count 2.92 10^3/uL (1.2-6.7); Basophils % 0.8; Eosinophils % 11.9; HCT 46.7 % (40.0-50.0); HGB 15.4 g/dL (13.5-17.5); Immature Grans % 0.3; Lymphocytes % 29.4; MCH 28.5 pg (27.0-33.0); MCV 86.5 fL (80-95); MPV 10.7 fL (8.0-11.0); Monocytes % 9.4; Neutrophils % 48.2; Nucleated RBC 0 %; Platelet Count 196 10^3/uL (130-400); RDW 12.4 % (11.8-14.1); RDW-SD 39.2 fL; WBC 6.06 10^3/uL (4.4-10.8)
--- NOTE | 2019-12-18 22:00 | RT.EKG_ITS ---
APPROVED REPORT Exam: Resting ECG Patient Location: E HR:91 bpm ECG Measurements Heart Rate 91 AXIS ND 194 P 65 QRSd 101 QRS -33 QT 441 T 40 QTc 543 Conclusion Sinus rhythm...normal P axis, V-rate 60- 99 Left axis deviation...QRS axis (-30,-90) Prolonged QT interval...QTc >500mS NONSPECIFIC ST-T CHANGES NO STEMI Abnormal Electrocardiogram
[2019-12-18 22:18] LABS: ALT 37 U/L (16-63); AST 20 U/L (15-37); Albumin 3.7 g/dL (3.4-5.0); Alkaline Phosphatase 118 U/L (46-116); Anion Gap 11.9 mmol/L (3-11); BUN 22 mg/dL (7-18); Bilirubin, Total 0.3 mg/dL (0.2-1.0); CO2 22.1 mmol/L (21.0-32.0); Chloride 102 mmol/L (98-107); Glucose 320 mg/dL (74-106); NT-proBNP 25 pg/mL (<300); Potassium 3.7 mmol/L (3.5-5.1); Sodium 136 mmol/L (136-145); Total Protein 7.2 g/dL (6.4-8.2); Troponin I < 0.05 ng/mL (<0.06)
--- NOTE | 2019-12-18 22:36 | DI.RAD_ITS ---
EXAM: XR PORTABLE CHEST AP CLINICAL HISTORY: cough,sob TECHNIQUE: COMPARISON: CT CT ABDOMEN PELVIS W from 09/10/2018 CR XR CHEST 2V PA LATERAL from 09/11/2018 FINDINGS: Heart is not enlarged. Lungs appear predominantly clear with pleural based left radiodensity noted w hich appears to be old. No acute intrapulmonary infiltrate. No pleural effusion on this frontal vie w. IMPRESSION: No evidence of acute process. RADIATION DOSE DELIVERED: Total DLP
--- NOTE | 2019-12-18 22:50 | DI.VRAD_ITS ---
PROCEDURE INFORMATION: Exam: XR Chest, 1 View Exam date and time: 12/18/2019 10:37 PM Age: 64 years old Clinical indication: Cough and shortness of breath TECHNIQUE: Imaging protocol: XR of the chest Views: 1 view. COMPARISON: CR XR CHEST 2V PA LATERAL 09/11/2018 3:41 PM FINDINGS: Lungs: Mild hyperinflation suggesting COPD. Some increase interstitial markings bilaterally suggests chronic interstitial disease. There is an area of opacification near the left CP angle which was present on a prior study 09/11/2018. Significance is uncertain. This could represent an area of scarring or chronic atelectasis. This might represent an area of pleural thickening. Pleural space: No pleural effusion. No pneumothorax. Heart/Mediastinum: Unremarkable. No cardiomegaly. Bones/joints: Degenerative thoracic spine disease. IMPRESSION: 1. Hyperinflation suggesting COPD disease. 2. Increased interstitial markings of a chronic appearance suggesting interstitial scarring. 3. Ill-defined opacification near the left CP angle which appears to have been present 09/11/2018. This may represent an area of chronic atelectasis. Differential diagnosis would include an area of pleural thickening. Dictated and Authenticated by: Ward Montemayor MD. Ordering:ERIK Naik MD
--- NOTE | 2019-12-18 23:05 | ED.GENADUL_ITS ---
Discharge Plan Disposition Patient Disposition: HOME Condition: Stable Discharge Details Clinical Impression: Asthma exacerbation Primary Care Provider: Camilo Ruiz ED Provider: Gumaro Gaston Home Meds and New Rx's Prescriptions: New prednisone 20 mg tablet 40 mg PO DAILY 4 Days Qty: 8 RF: 0 Continued glimepiride 4 mg tablet 4 mg PO QAM RF: 0 multivitamin [Daily Multi-Vitamin] tablet 1 tab PO DAILY RF: 0 pramipexole 0.25 mg tablet 0.25 mg PO QHS Qty: 30 RF: 0 Prilosec OTC 20 MG tablet,delayed release (DR/EC) 20 mg PO DAILY RF: 0 albuterol sulfate [ProAir HFA] 200 PUFF HFA aerosol inhaler 1 - 2 puff Inhalation .Q4-6H PRN RF: 0 Flovent HFA 120 PUFF HFA aerosol inhaler 2 puff Inhalation BID RF: 0 finasteride [Propecia] 1 MG tablet 1 mg PO DAILY RF: 0 loratadine [Claritin Liqui-Gel] 10 MG capsule 1 cap PO DAILY RF: 0 acetaminophen [Tylenol] 325 mg Tablet 325 - 650 mg PO Q4H PRN PRN (Reason: pain) Qty: 0 RF: 0 ibuprofen 600 mg tablet 600 mg PO TID Qty: 30 RF: 0 Discharge Instructions Instructions: Asthma (ED) Additional Instructions: At this time your blood work and x-ray are within normal limits. It appears as though you are having an asthma exacerbation. I do recommend that you continue using your inhalers as directed and add on prednisone as directed. Please watch for new or worsening symptoms and return to the ER for any concerns. I would like you to reach out to your primary care provider on Saturday for prompt outpatient reevaluation. Stand Alone Forms: POSITIVE COVID-19/TO BE TESTED Medical Decision Making 64-year-old gentleman, former smoker, history of asthma presents for 3-4-day history of dry cough, wheezing, dyspnea, worse after exposure to mowing the lawn. Clinically he has scattered wheezing throughout, O2 sats are in the low 90s on room air. He is afebrile. Given his age and comorbidities I will obtain laboratory values including a single troponin and EKG, given the duration a single troponin and EKG should be sufficient for cardiac rule out which is extremely low suspicion. I believe that ACS, PE, dissection is extremely low risk. I also believe that this is likely not a bacterial infection. We will also obtain a BNP to exclude heart failure. Most likely diagnosis here is that of asthma exacerbation. Will give duo and albuterol neb and reassess. We will also obtain COVID a swab. Nebs given. Laboratory values reveal white count of 6.06 electrolytes unremarkable, GFR greater than 60. Glucose 320. Troponin is less than 0.05. BNP is 25. Patient is a known diabetic. COVID pending. Chest x-ray unremarkable for infiltrate. Upon reevaluation patient is resting comfortably, heart rate is now in the low 80s, respirations of 18. O2 sat of 89 however upon speaking with the patient having him take normal breaths his O2 sat went up to 94. Lungs are now clear to auscultation, wheezing has resolved completely. He subjectively reports feeling much improved. He already has Flovent and a rescue inhaler at home. We will give a single dose of 40 p.o. steroids now and give 4 more day prescription. We discussed the importance of monitoring his glucose more carefully as steroids can increase his hyperglycemia at baseline. Patient has no additional questions or concerns and is comfortable discharge at this time. Patient was encouraged to return to the ER for new or worsening symptoms, otherwise contact his primary care provider on Saturday for prompt outpatient reevaluation. Medical Records Medical records reviewed: Yes I reviewed the patient's medical records. Imaging Data Radiologic Study: Attestation: I personally reviewed and interpreted this imaging study as follows: Imaging: X-Ray Radiologist's impression: Read by radiology as hyperinflation suggesting COPD disease. Increased interstitial markings of a chronic appearance suggesting interstitial scarring. Ill-defined opacification near the left CP angle which appears to be present on the 09-11-18. Lab Data Lab results reviewed: Yes I reviewed the patient's lab results. Lab results narrative: Laboratory Tests Range/Units 12/18/19 12/18/19 21:47 21:47 WBC (4.4-10.8) 10^3/uL 6.06 RBC (4.36-5.78) 10^6/uL 5.40 Hgb (13.5-17.5) g/dL 15.4 Hct (40.0-50.0) % 46.7 MCV (80-95) fL 86.5 MCH (27.0-33.0) pg 28.5 MCHC (32.0-36.0) % 33.0 RDW (11.8-14.1) % 12.4 Plt Count (130-400) 10^3/uL 196 MPV (8.0-11.0) fL 10.7 Immature Gran % 0.3 Neutrophils % 48.2 Lymphocytes % 29.4 Monocytes % 9.4 Eosinophils % 11.9 Basophils % 0.8 Nucleated RBC % % 0 Absolute Neutrophils (1.2-6.7) 10^3/uL 2.92 Absolute Lymphocytes (1.2-3.4) 10^3/uL 1.78 Absolute Monocytes (0.1-0.8) 10^3/uL 0.57 Absolute Eosinophils (0.0-0.7) 10^3/uL 0.72 H Absolute Basophils (0.0-0.2) 10^3/uL 0.05 Sodium (136-145) mmol/L 136 Potassium (3.5-5.1) mmol/L 3.7 Chloride (98-107) mmol/L 102 Carbon Dioxide (21.0-32.0) mmol/L 22.1 Anion Gap (3-11) mmol/L 11.9 H BUN (7-18) mg/dL 22 H Creatinine (0.70-1.30) mg/dL 1.00 Estimated GFR/1.73 m2 (mL/min/1.73m2) >= 60.00 Glucose (74-106) mg/dL 320 H Calcium (8.5-10.1) mg/dL 9.0 Magnesium (1.8-2.4) mg/dL 2.0 Total Bilirubin (0.2-1.0) mg/dL 0.3 AST (15-37) U/L 20 ALT (16-63) U/L 37 Alkaline Phosphatase (46-116) U/L 118 H Troponin I (<0.06) ng/mL < 0.05 NT-Pro-B Natriuret Pep (<300) pg/mL 25 Total Protein (6.4-8.2) g/dL 7.2 Albumin (3.4-5.0) g/dL 3.7 ECG Data Attestation: I personally reviewed and interpreted this ECG (s) as follows: Interpretation: Please see official report by Dr. Hogue. Sinus rhythm, ventricular of 91. No STEMI. HPI General Mode of arrival: ambulatory . Date/Time Provider Initiated Documentation: 12/18/19 21:26 . Limitations to Documentation: no limitations . Information obtained by: patient . HPI Narrative: This is a 64-year-old gentleman with history of asthma, diabetes, pancreatitis, GERD, former smoker, presents to the ER this evening for evaluation of wheezing, mild dry cough and shortness of breath that began a few days ago. He reports that mowing the lawn and being exposed to the lawn particles exacerbated his symptoms. He has been using his inhalers at home with some relief but subsequently this evening felt as though his symptoms were worsening. He denies recent travel or sick contacts. He denies fever, chest pain, productive cough, abdominal pain, nausea, vomiting, pain or swelling in his legs. He has not been evaluated for this since his symptoms began. Related Data Home Medications Medication Instructions Recorded Confirmed Prilosec OTC 20 mg PO DAILY 06/08/12 09/10/18 Flovent HFA 2 puff INHALATION BID 07/25/15 09/10/18 albuterol sulfate [ProAir HFA] 1 - 2 puff INHALATION .Q4-6H PRN 07/25/15 09/10/18 finasteride [Propecia] 1 mg PO DAILY 07/25/15 09/10/18 loratadine [Claritin Liqui-Gel] 1 cap PO DAILY 07/28/15 09/10/18 glimepiride 4 mg tablet 4 mg PO QAM 12/17/17 09/10/18 multivitamin 1 tab PO DAILY 12/17/17 09/01/18 acetaminophen [Tylenol] 325 - 650 mg PO Q4H PRN PRN #0 tab 09/12/18 ibuprofen 600 mg PO TID #30 tab 09/12/18 pramipexole 0.25 mg tablet 0.25 mg PO QHS #30 tab 12/31/18 prednisone 40 mg PO DAILY 4 Days #8 tab 12/18/19 Previous Rx's Medication Instructions Recorded acetaminophen [Tylenol] 325 - 650 mg PO Q4H PRN PRN #0 tab 09/12/18 ibuprofen 600 mg PO TID #30 tab 09/12/18 pramipexole 0.25 mg tablet 0.25 mg PO QHS #30 tab 12/31/18 prednisone 40 mg PO DAILY 4 Days #8 tab 12/18/19 Allergies Allergy/AdvReac Type Severity Reaction Status Date / Time liraglutide [From Victoza] Allergy Intermediate Severe Verified 12/18/19 21:24 diarrhea lisinopril Allergy Mild Verified 12/18/19 21:24 metformin Allergy Mild Verified 12/18/19 21:24 General Stated Complaint: SOB HONEY: 3 Review of Systems Constitutional Constitutional: Denies fatigue and Denies fever(s) Eyes Eyes: Denies eye discharge ENT Ears, Nose, Mouth, and Throat: Denies sore throat Cardiovascular Cardiovascular: Denies chest pain and Reports dyspnea Respiratory Respiratory: Reports cough, Reports dyspnea and Reports wheezing Gastrointestinal Gastrointestinal: Denies abdominal pain, Denies nausea and Denies vomiting Integumentary/Breasts Skin/Breast: Denies rash Endocrine Endocrine: Denies fatigue Allergic/Immunologic Allergic/Immunologic: Reports wheezing [facility] Medical History Asthma BPH (benign prostatic hyperplasia) Compulsive disorder pt. states he does not have this condition Depression with anxiety pt. states he no longer has this condition GERD (gastroesophageal reflux disease) History of colonic polyps 08/29/18 Dr Monique Matias, tubular adenoma x 4, repeat 3 years. Non-insulin dependent type 2 diabetes mellitus poorly controlled with recent HgbA1c of 11.[address] Ruiz's colo referral dated 07/21/18. mg Overweight Restless leg syndrome Seasonal allergies Tubular adenoma of colon Surgical History History of cataract extraction left eye History of nasal polypectomy Hx of colonoscopy Hx of knee surgery Family History Paternal Aunt ALS (amyotrophic lateral sclerosis) Paternal Aunt ALS (amyotrophic lateral sclerosis) Paternal Cousin ALS (amyotrophic lateral sclerosis) multiple Social History Smoking/Tobacco Use Status: Former Tobacco Use Quit Date: 08/07/03 Pack-years: 17 Tobacco: How many years used: 17 Alcohol Intake: current Alcohol Intake frequency: holidays/special occasions only Alcohol type: beer and hard liquor Drug use: Never Substance use type: does not use Household members: spouse 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 Do you feel safe at home: Yes Do you feel safe in your relationship?: Yes Exam Const General: cooperative, healthy appearing, comfortable and no acute distress Orientation: alert, awake and oriented x3 HENMT Head: normal to inspection, normocephalic and atraumatic General nose exam: external nose normal Face and sinus: normal facial exam Mouth: moist mucous membranes Throat: posterior oropharynx normal Eyes Conjunctivae: conjunctivae normal Sclera: sclerae normal Neck Neck: normal visual inspection, full ROM, trachea midline and supple Resp Effort & Inspection: normal respiratory effort and able to speak in complete sentences Auscultation: wheezes scattered wheezes (Throughout) Cardio Rate: regular rate Rhythm: regular rhythm GI Palpation: soft and nontender Skin General skin exam: no rashes or lesions noted Neuro General: patient alert, patient awake, moves all extremities and no focal motor deficits Speech: speech normal Gait: normal gait Motor: muscle tone normal throughout and strength 5/5 throughout Sensory Exam: no sensory deficits noted Extrem General: normal to inspection, full ROM, capillary refill normal, no pedal edema and no calf tenderness Psych Appearance: grossly normal Mental Status: mental status grossly normal Course Vital Signs Vital signs: Vital Signs Temperature 36.1 C L 12/18/19 21:20 Pulse 99 H 12/18/19 21:20 Respiratory Rate 25 H 12/18/19 21:20 Blood Pressure 145/85 H 12/18/19 21:20 Pulse Oximetry 93 L 12/18/19 21:20 Temperature 36.1 C L 12/18/19 21:20 Temperature Source Temporal Artery Scan 12/18/19 21:20 Pulse 90 12/18/19 22:31 Pulse 94 H 12/18/19 22:33 Respiratory Rate 22 12/18/19 22:33 Respiratory Effort 12/18/19 21:25 Respiratory Depth Shallow 12/18/19 21:25 Respiratory Pattern Tachypnea 12/18/19 21:25 Blood Pressure 125/63 12/18/19 22:31 Blood Pressure Mean 76 12/18/19 22:31 Blood Pressure Position Sitting 12/18/19 21:20 Pulse Oximetry 89 L 12/18/19 22:33 Oxygen Delivery Method Room Air 12/18/19 21:54 Oxygen Flow Rate 0 12/18/19 21:54 Lab/Test Results Lab/Test Results: Laboratory Tests Range/Units 12/18/19 12/18/19 21:47 21:47 WBC (4.4-10.8) 10^3/uL 6.06 RBC (4.36-5.78) 10^6/uL 5.40 Hgb (13.5-17.5) g/dL 15.4 Hct (40.0-50.0) % 46.7 MCV (80-95) fL 86.5 MCH (27.0-33.0) pg 28.5 MCHC (32.0-36.0) % 33.0 RDW (11.8-14.1) % 12.4 Plt Count (130-400) 10^3/uL 196 MPV (8.0-11.0) fL 10.7 Immature Gran % 0.3 Neutrophils % 48.2 Lymphocytes % 29.4 Monocytes % 9.4 Eosinophils % 11.9 Basophils % 0.8 Nucleated RBC % % 0 Absolute Neutrophils (1.2-6.7) 10^3/uL 2.92 Absolute Lymphocytes (1.2-3.4) 10^3/uL 1.78 Absolute Monocytes (0.1-0.8) 10^3/uL 0.57 Absolute Eosinophils (0.0-0.7) 10^3/uL 0.72 H Absolute Basophils (0.0-0.2) 10^3/uL 0.05 Sodium (136-145) mmol/L 136 Potassium (3.5-5.1) mmol/L 3.7 Chloride (98-107) mmol/L 102 Carbon Dioxide (21.0-32.0) mmol/L 22.1 Anion Gap (3-11) mmol/L 11.9 H BUN (7-18) mg/dL 22 H Creatinine (0.70-1.30) mg/dL 1.00 Estimated GFR/1.73 m2 (mL/min/1.73m2) >= 60.00 Glucose (74-106) mg/dL 320 H Calcium (8.5-10.1) mg/dL 9.0 Magnesium (1.8-2.4) mg/dL 2.0 Total Bilirubin (0.2-1.0) mg/dL 0.3 AST (15-37) U/L 20 ALT (16-63) U/L 37 Alkaline Phosphatase (46-116) U/L 118 H Troponin I (<0.06) ng/mL < 0.05 NT-Pro-B Natriuret Pep (<300) pg/mL 25 Total Protein (6.4-8.2) g/dL 7.2 Albumin (3.4-5.0) g/dL 3.7
[2019-12-18] MEDS: predniSONE 20 MG TAB 40 MG PO (23:22)
[2019-12-25 14:32] LABS: Patient Race White; SARS-CoV-2 RNA Undetected (Undetected); SARS-CoV-2 Specimen Source Nasopharynx
== END 2019-12-18 23:25 | disposition home or self-care (01) ==
PROVIDERS: Emergency Provider Physician Assistant; PCP Internal Medicine
DX: J45.901 Unspecified asthma with (acute) exacerbation (principal); R09.02 Hypoxemia; E11.65 Type 2 diabetes mellitus with hyperglycemia; Z79.84 Long term (current) use of oral hypoglycemic drugs; Z11.59 Encounter for screening for other viral diseases; Z87.891 Personal history of nicotine dependence
CPT/HCPCS: 36415; 80053; 93005; 94640; 99285; U0003; 71045; 83735; 83880; 84484; 85025; 93010; J7512; J7613; J7620

== ENCOUNTER 2020-02-01 22:07 | Outpatient (REF) | payer BC, SELFPAY | END 2020-02-01 22:27 | LOC: NCHCN 22:07 | PROVIDERS: PCP Internal Medicine; Visit Provider Family Medicine | DX: R30.0 Dysuria (principal) | CPT/HCPCS: 87077; 87086 ==

== ENCOUNTER 2020-04-12 18:28 | Outpatient (REF) | payer BC, SELFPAY ==
[2020-04-14 14:41] LABS: COVID-19 RT-PCR UVMMC Result Negative (Negative)
== END 2020-04-12 18:48 ==
LOC: NCHCN 18:28
PROVIDERS: PCP Internal Medicine; Visit Provider Nurse Practitioner Family
DX: Z20.828 Contact with and (suspected) exposure to other viral communicable diseases (principal)
CPT/HCPCS: U0003

== ENCOUNTER 2020-04-16 14:38 | Outpatient (REF) | payer BC, SELFPAY | END 2020-04-16 14:58 | LOC: LBN 14:38 | PROVIDERS: PCP Internal Medicine; Visit Provider Nurse Practitioner Family | DX: R30.0 Dysuria (principal) | CPT/HCPCS: 87077; 87086; 87186 ==

== ENCOUNTER 2020-06-24 04:30 | Outpatient (CLI) | payer BC, SELFPAY ==
--- NOTE | 2020-06-24 14:32 | DI.CT_ITS ---
EXAM: CT SINUS WO CLINICAL HISTORY: CHRONIC PANSINUSITIS, PRIMARY, J32.4. Evaluate for sinusitis. TECHNIQUE: Imaging Protocol: Axial computed tomography images with coronal and sagittal reformatted images were created and reviewed. COMPARISON: CT HEAD WITHOUT CONTRAST from 07/11/2013 FINDINGS: AXIAL IMAGES: Frontal sinuses: Completely opacified Ethmoid air cells: Completely opacified. Mild ext penciled L changes and bony thinning.. Maxillary sinuses: Nearly completely opacified. Previous medial antrectomies. Sphenoid sinus: Completely opacified Osseous nasal septum: Slight rightward deviation. Previous resection of middle turbinates. Increase d densities in the superior nasal cavity. Visualized regional soft tissues: No acute findings. Orbits: Unremarkable. Bones: Unremarkable. Mastoid Air Cells: Normally aerated. IMPRESSION: Severe chronic pansinusitis. RADIATION DOSE DELIVERED: 138.55mGy.cm Total DLP DATA REPOSITORY: All CT scans at this facility are submitted to the National Radiology Data Registry (NRDR) Dose Index Registry (DIR) with the [employer] (ACR). RADIATION OPTIMIZATION: All CT scans at this facility use at least one of these dose optimization te chniques: automated exposure control; mA and/or kV adjustment per patient size (includes targeted exa ms where dose is matched to clinical indication); or iterative reconstruction.
== END 2020-06-24 04:50 ==
PROVIDERS: PCP Internal Medicine; Visit Provider Otolaryngology
DX: J32.4 Chronic pansinusitis (principal)
CPT/HCPCS: 70486

== ENCOUNTER 2020-08-01 03:35 | Outpatient (CLI) | payer BC, SELFPAY ==
[2020-08-01 10:00] LABS: Source Nasal/Nares
[2020-08-01 16:10] LABS: COVID-19 PCR Negative (Negative)
== END 2020-08-01 03:36 | disposition home or self-care (01) ==
LOC: LBO 03:36
PROVIDERS: PCP Internal Medicine; Visit Provider Otolaryngology
DX: Z20.822 Contact with and (suspected) exposure to COVID-19 (principal); Z01.818 Encounter for other preprocedural examination
CPT/HCPCS: 87635

== ENCOUNTER 2020-11-25 15:28 | Outpatient (REF) | payer BC, SELFPAY ==
[2020-11-25 20:33] LABS: Abs Immature Grans 0.04 10^3/uL (0.0-0.06); Absolute Basophil Count 0.06 10^3/uL (0.0-0.2); Absolute Eosinophil Count 0.49 10^3/uL (0.0-0.7); Absolute Lymphocyte Count 1.64 10^3/uL (1.2-3.4); Absolute Monocyte Count 0.83 10^3/uL (0.1-0.8); Absolute Neutrophil Count 8.15 10^3/uL (1.2-6.7); Basophils % 0.5; Eosinophils % 4.4; HCT 47.5 % (40.0-50.0); HGB 15.8 g/dL (13.5-17.5); Immature Grans % 0.4; Lymphocytes % 14.6; MCH 28.7 pg (27.0-33.0); MCHC 33.3 % (32.0-36.0); MCV 86.2 fL (80-95); MPV 11.3 fL (8.0-11.0); Monocytes % 7.4; Neutrophils % 72.7; Nucleated RBC 0 %; Platelet Count 205 10^3/uL (130-400); RBC 5.51 10^6/uL (4.36-5.78); RDW 13.1 % (11.8-14.1); WBC 11.21 10^3/uL (4.4-10.8)
[2020-11-25 20:48] LABS: BUN 17 mg/dL (7-18); CREATININE 0.9 mg/dL (0.70-1.30); Calcium 9.3 mg/dL (8.5-10.1); Chloride 105 mmol/L (98-107); Glucose 180 mg/dL (74-106); Potassium 3.9 mmol/L (3.5-5.1); Sodium 142 mmol/L (136-145)
== END 2020-11-25 15:29 | disposition home or self-care (01) ==
LOC: LBN 15:28
PROVIDERS: PCP Internal Medicine; Visit Provider Physician Assistant Medical
DX: R30.0 Dysuria (principal)
CPT/HCPCS: 80048; 87077; 85025; 87086; 87186

== ENCOUNTER 2022-04-05 22:24 | Outpatient (REF) | payer BC, SELFPAY ==
[2022-04-05 22:11] LABS: Anion Gap 11.5 mmol/L (3-11); BUN 26 mg/dL (7-18); CO2 24.5 mmol/L (21.0-32.0); Calcium 9.4 mg/dL (8.5-10.1); Chloride 101 mmol/L (98-107); Estimated GFR 83.01 (mL/min/1.73m2); Glucose 162 mg/dL (74-106); Potassium 4.2 mmol/L (3.5-5.1); Sodium 137 mmol/L (136-145)
== END 2022-04-05 22:25 | disposition home or self-care (01) ==
LOC: NCHCN 22:24
PROVIDERS: PCP Internal Medicine; Visit Provider Family Medicine
DX: E11.65 Type 2 diabetes mellitus with hyperglycemia (principal)
CPT/HCPCS: 80048

== ENCOUNTER 2023-01-18 10:56 | Day surgery (SDC) | payer MEDICARE, SELFPAY ==
--- NOTE | 2023-01-17 20:11 | COLE_ITS ---
Colonoscopy Report Pre-op diagnosis general: adenomatous polyps Surgeon: Monique Matias Anesthesia Type: General:No Airway Complications: None Disposition: same day Prep: Miralax/Dulcolax Procedure Description: After informed consent was obtained the patient was taken to the procedure room and placed in a left decubitous position. Monitors were applied and a time out was done. The patients name, date of , procedure, allergies to medications and metal in their body was reviewed. The patient was then sedated. Once sedated and comfortable a rectal exam was done. External exam was normal. Internal exam revealed a normal sphincter tone and no palpable masses. The prostate []. The scope was then introduced and retrofelexed. [] internal hemorrhoids were identified. The scope was then advanced to the cecum [] difficulty. The TI and appendiceal orifice were identified. The prep was []. The scope was then slowly retracted over [] minutes back into the rectum. Polyps were removed at []. The scope was removed and the patient was woken up and taken back to Same day surgery in stable condition. The patient tolerated the procedure well and there were no immediate compli cations. Follow up: The patient should follow up in [] years unless they develop changes in bowel habits or other new gastrointestinal complaints.
--- NOTE | 2023-01-17 20:12 | PDOC.DSDIS_ITS ---
Discharge Plan Disposition Patient Disposition: Home Condition: Good Discharge Details Reason For Visit: colon scope Attending Provider: Monique Matias Primary Care Provider: Gautam Whitaker Home Meds and New Rx's Prescriptions: Continued glimepiride 4 mg tablet 4 mg PO QAM multivitamin [Daily Multi-Vitamin] tablet 1 tab PO DAILY Dupixent Syringe 100 mg/0.67 mL syringe 200 mg subcut Q2W pramipexole 0.25 mg tablet 0.25 mg PO QHS Qty: 30 0RF sertraline 50 mg tablet 50 mg PO DAILY Jardiance 25 mg tablet 25 mg PO DAILY budesonide-formoterol [Symbicort] 160-4.5 mcg/actuation HFA aerosol inhaler 2 puff inhalation BID omeprazole magnesium [Prilosec OTC] 20 MG tablet,delayed release (DR/EC) 20 mg PO DAILY albuterol sulfate [ProAir HFA] 200 PUFF HFA aerosol inhaler 1 - 2 puff Inhalation .Q4-6H PRN finasteride [Propecia] 1 MG tablet 1 mg PO DAILY acetaminophen [Tylenol] 325 mg Tablet 325 - 650 mg PO Q4H PRN PRN (Reason: pain) Qty: 0 0RF Rx Instructions: total dose of acetaminophen cannot exceed 4000 mg (4 grams)/day. This includes acetaminophen in percocet. Discontinued bisacodyl [Dulcolax (bisacodyl)] 5 mg tablet,delayed release (DR/EC) 5 mg PO ONCE Qty: 4 0RF Rx Instructions: Colonoscopy Bowel Prep- Per Instructions polyethylene glycol 3350 17 gram/dose powder 238 g PO ONCE Qty: 238 0RF Rx Instructions: Colonoscopy Bowel Prep- Per Instructions Discharge Instructions Additional Instructions: DSU Colonoscopy Post- Op Instructions Instructions for Everyone who is given Anesthesia: For your safety, please do the following for the next twenty-four (24) hours: *Do Not operate a motor vehicle (car, truck, motorcycle, etc.) *Do Not drink alcoholic beverages or use any recreational drugs for the first 24 hours or while taking pain medications. The medications in your body may have a reaction that can be dangerous. *Do Not make any important decisions or sign any important papers. Findings: Follow up: 1. No lifting over 20 pounds or strenuous activity for the first 24 hours after your procedure. After 24 hours there are no restrictions on your activity but you may feel fatigued for a few days. 2. After you arrive home you may have a light meal and return to your normal diet as you can tolerate it without feeling sick to your stomach. 3. You may have a bloated, gaseous feeling in your belly (abdomen) after a colonoscopy. Passing gas and belching will help. Walking or lying down on your left side with your knees flexed may relieve the discomfort. Call the office at [phone] (Office) or [phone] (Hospital) right away if you notice any of the following: a.Vomiting of blood or ?coffee ground stools?. b.Rectal bleeding 1Tbsp, blood clots or continuous bleeding. c.Severe belly (abdominal) pain. d.A hard distended belly (abdomen) and an inability to pass gas. 4. Please don?t expect to have a normal BM (bowel movement) for 2-3 days after your procedure. 5. If there are questions regarding the findings of your procedure, please contact your doctor 6. If you are unable to contact your doctor with a problem, contact the hospital at [phone]. 7. Continue all your regular medications unless directed otherwise. I understand the above instructions and have no questions. Signature of Patient or Adult Escort Name of Responsible Adult Escort Signature of Nurse Date/Time Activity:: see above Diet:: seee above Discharge Orders Discharge Orders: Discharge Order (Routine); Ordered 01/18/23 Ordered By: Monique Matias DS: Diagnosis Discharge Diagnosis (1) GERD (gastroesophageal reflux disease): Status: Chronic (2) Asthma: Status: Chronic (3) Diabetes mellitus type 2, controlled, without complications: Status: Acute (4) History of colonic polyps: Status: Chronic Asessment and Plan: The patient is seen and examined after their colonoscopy.? The patient has been able to pass gas.? They are not having abdominal pain.? They have been able to tolerate liquids and a snack.? They do not have any nausea or vomiting.? They are not having any chest pain or shortness of breath.??? They are not having any rectal bleeding. Their vital signs have been stable-see nursing notes. We discussed findings during their colonoscopy, and any biopsies that were done/polyps that were removed. The patient will be sent a letter with any biopsy results, and when to repeat the colonoscopy.-see discharge instructions. Patient was given explicit instructions to follow-up regarding colonoscopy-refer to discharge instructions.? We reviewed resumption of medications. Patient verbalized understanding and discharged in stable and satisfactory condition- See nursing notes.
== END 2023-01-18 10:57 | disposition home or self-care (01) ==
LOC: SUR 10:57
PROVIDERS: PCP Family Medicine; Visit Provider Surgery
DX: Z12.11 Encounter for screening for malignant neoplasm of colon (principal); Z86.010 Personal history of colon polyps; E11.9 Type 2 diabetes mellitus without complications; K21.9 Gastro-esophageal reflux disease without esophagitis; J45.909 Unspecified asthma, uncomplicated; Z53.8 Procedure and treatment not carried out for other reasons

== ENCOUNTER 2023-02-01 10:54 | Day surgery (SDC) | payer MEDICARE, SELFPAY ==
--- NOTE | 2023-02-01 10:21 | W.PM.HP.N ---
Date of service: 02/01/23 Time of Service: : Assessment and Plan Assessment and plan (1) Allergic rhinitis: Status: Acute (2) Restless leg syndrome: Status: Chronic (3) GERD (gastroesophageal reflux disease): Status: Chronic Qualifiers: Esophagitis presence: esophagitis presence not specified Qualified Code(s): K21.9 - Gastro-esophageal reflux disease without esophagitis (4) Acute pancreatitis: Status: Acute Qualifiers: Pancreatitis type: drug induced Acute pancreatitis complication: no infection or necrosis Qualified Code(s): K85.30 - Drug induced acute pancreatitis without necrosis or infection (5) Diabetes mellitus type 2, controlled, without complications: Status: Acute Qualifiers: 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 Informed consent is obtained for the procedural (explained in simple layman's terms that?the pt and/or family could understand) explaining risks vs benefits and alternatives to the procedure and consequences if we do not do the procedure and need/rational for the procedure. Risks include but are not limited to: bleeding, infection, perforation of colon.? This would necessitate emergency surgery to repair the damage w/ possible ostomy; and other associated complications w/ the required surgery. ? Also complications of anesthesia including aspiration, DE/CVA/, inability to complete the procedure. I discussed with the?patient would they could expect during the procedure, post procedure and recovery time and risks.? The patient understands that they need to have a ride home after the procedure.? The patient was given all this information in writing and expressed understanding. If there are any questions or concerns please feel free to contact our office.? Generally Colonoscopy does not require antibiotics prophylaxis, (7) BPH (benign prostatic hyperplasia): History of Present Illness Narrative: Encounter for screening colonoscopy: The patient is here for Colonoscopy pre-op.His last screening was in 2019 , which was remarkable for tubular adenomatous polyps x 4. He denies a family history of colon cancer. He has not had any bowel habit changes. -Discussed colonoscopy bowel prep as well as the procedure. Discussed possible complications of the procedure to include bleeding, pain, perforation, missed small lesion/polyp, sore throat, aspiration and adverse reaction to the medications. Questions were answered to patient?s satisfaction. No guarantees were implied or given. Anesthesia: general (without airway) Previous surgical intolerances: None Previous surgical complications: None Pulmonary risk factors: None PFT's: None Planned procedure: Yes Sleep apnea risks: No Can climb one flight of stairs (12-13 steps) in less than 30 seconds without stopping and without symptoms: Yes The surgery proposed for this patient is: Low risk Active cardiac conditions: None ECHO: None Stress Test: None Active risk factors: None ASA (acetylsalicylic acid):No Beta blockers: No Gerd is well controlled on PPI Anti-coagulation: N/A Medications to be held: Jardiance x 3 days prior 67 y/o male with history of Type 2 DM (HbA1C 8.6%; 2019), GERD, asthma and restless leg syndrome presents for colonoscopy screening pre-op. His last screening was in 2019 , which was remarkable for tubular adenomatous polyps x 4. He denies a family history of colon cancer. He denies any changes in bowel habits including bloody or black tarry stools, abdominal pain, diarrhea or constipation. He denies constitutional symptoms. He denies chest pain, palpitations, dyspnea or dyspnea with exertion. He denies prior history or family history of adverse reactions or complications with anesthesia. The patient denies any history of stroke, DE, seizures, bleeding or clotting disorders. He denies having any implanted metal in his body. Review of Systems All systems reviewed & are unremarkable except as noted in HPI and below PFSH All Active Problems Nasal polyp (Acute) Allergic rhinitis (Acute) Restless leg syndrome (Chronic) DVT prophylaxis (Acute) Muscle twitching (Acute) GERD (gastroesophageal reflux disease) (Chronic) Asthma (Chronic) Acute pancreatitis (Acute) Diabetes mellitus type 2, controlled, without complications (Acute) History of colonic polyps (Chronic) 08/29/18 Dr Monique Matias, tubular adenoma x 4, repeat 3 years. Medical History Non-insulin dependent type 2 diabetes mellitus poorly controlled with recent HgbA1c of 11.[address] Ruiz's colo referral dated 07/21/18. mg Depression with anxiety pt. states he no longer has this condition Overweight Tubular adenoma of colon Compulsive disorder pt. states he does not have this condition Asthma Seasonal allergies GERD (gastroesophageal reflux disease) BPH (benign prostatic hyperplasia) Surgical History History of nasal polypectomy Hx of colonoscopy Hx of knee surgery History of cataract extraction left eye Family History Paternal Aunt ALS (amyotrophic lateral sclerosis) Paternal Aunt ALS (amyotrophic lateral sclerosis) Paternal Cousin ALS (amyotrophic lateral sclerosis) multiple Social History Smoking/Tobacco Use Status: Former Tobacco Use Quit Date: 08/07/03 Pack-years: 17 Tobacco: How many years used: 17 Smoking risk assessment performed?: Yes Alcohol Intake: current Alcohol Intake frequency: holidays/special occasions only Alcohol type: beer and hard liquor Drug use: Never Substance use type: does not use Household members: spouse Housing: house 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 Do you feel safe at home: Yes Do you feel safe in your relationship?: Yes Meds Allergies and Home Medications Allergies Allergy/AdvReac Type Severity Reaction Status Date / Time liraglutide [From Victoza] Allergy Intermediate Severe Verified 02/01/23 11:28 diarrhea metformin Allergy Mild Verified 02/01/23 11:28 ibuprofen Allergy Unknown Unverified 02/01/23 11:29 Home Medications Medication Instructions Recorded Confirmed Type omeprazole magnesium 20 mg 20 mg PO DAILY 06/08/12 02/01/23 History tablet,delayed release (Prilosec OTC) albuterol sulfate 90 mcg/actuation 1 - 2 puff inhalation .Q4-6H PRN 07/25/15 02/01/23 History aerosol inhaler (ProAir HFA) finasteride 1 mg tablet (Propecia) 1 mg PO DAILY 07/25/15 02/01/23 History glimepiride 4 mg tablet 4 mg PO QAM 12/17/17 02/01/23 History multivitamin (Daily Multi-Vitamin 1 tab PO DAILY 12/17/17 02/01/23 History tablet) acetaminophen 325 mg tablet 325 - 650 mg (1 - 2 x 325 mg) PO 09/12/18 02/01/23 Rx (Tylenol) Q4H PRN PRN pain #0 tabs pramipexole 0.25 mg tablet 0.25 mg PO QHS #30 tabs 12/31/18 02/01/23 Rx budesonide-formoterol HFA 160 2 puff inhalation BID 10/19/22 02/01/23 History mcg-4.5 mcg/actuation aerosol inhaler (Symbicort) empagliflozin 25 mg tablet 25 mg PO DAILY 10/19/22 01/31/23 History (Jardiance) sertraline 50 mg tablet 50 mg PO DAILY 10/19/22 02/01/23 History dupilumab 100 mg/0.67 mL 200 mg subcut Q2W 01/01/23 02/01/23 History subcutaneous syringe (Dupixent) bisacodyl 5 mg tablet,delayed 5 mg PO ONCE colonscopy bowel prep 01/22/23 02/01/23 Rx release (Dulcolax (bisacodyl)) #4 tabs polyethylene glycol 3350 17 238 g PO ONCE colonoscopy prep 01/22/23 02/01/23 Rx gram/dose oral powder #238 grams Exam Narrative Exam Narrative: PHYSICAL EXAM GENERAL APPEARANCE: Alert, healthy appearance, oriented, x 3,? in no acute distress HYDRATION: Well hydrated HEAD, EYES, EARS, NECK, THROAT: Head is normocephalic, pupils equal, round, reactive to light and accommodation, ocular movement intact, sclera clear and no jaundice. ?Dentition intact. LUNGS: normal respiration/normal chest excursion. ?Clear to auscultation bilaterally. ?No wheeze. ?HEART: Regular rate and rhythm. no murmurs ABDOMEN: soft and non-tender to palpation.? Normal bowel sounds.? Const Other: PHYSICAL EXAM GENERAL APPEARANCE: Alert, healthy appearance, oriented, x 3,? in no acute distress HYDRATION: Well hydrated HEAD, EYES, EARS, NECK, THROAT: Head is normocephalic, pupils equal, round, reactive to light and accommodation, ocular movement intact, sclera clear and no jaundice. ?Dentition intact. LUNGS: normal respiration/normal chest excursion. ?Clear to auscultation bilaterally. ?No wheeze. ?HEART: Regular rate and rhythm. no murmurs EXTREMITY: No edema or cyanosis.? no leg pain, redness, swelling.? ABDOMEN: soft and non-tender to palpation.? Normal bowel sounds.? ? Time Spent Time spent with Patient: <40 minutes Time was spent: preparing to see the patient(eg.review tests), obtaining and/or reviewing separately otained hiistory, ordering medications,tests, procedures, referring, communicating with other health healthcare prof, indepentently interpreting results, counseling the patient and care coordination
[2023-02-01 11:10] VITALS: BP 125/95; PULSE 81; RESP 16; TEMP 36.9; O2SAT 94
[2023-02-01 11:32] VITALS: BP 125/95; PULSE 81; RESP 16; TEMP 36.9; O2SAT 94
[2023-02-01] MEDS: Lactated Ringers 1,000 ML 80 ML IV (11:49)
[2023-02-01 12:47] VITALS: BMI 30.4
--- NOTE | 2023-02-01 12:47 | ANES.PREOP_ITS ---
General Info Date of Service Date Performed: 02/01/23 Height: 6 ft Weight: 101.8 kg Body Mass Index (BMI): 30.4 Surgical Procedure: Operation Date: 02/01/23 11:50 Proposed Procedure Side Surgeon p Alden Matias, Meds Allergies and Home Medications Allergies Allergy/AdvReac Type Severity Reaction Status Date / Time liraglutide [From Victoza] Allergy Intermediate Severe Verified 02/01/23 11:28 diarrhea metformin Allergy Mild Verified 02/01/23 11:28 ibuprofen Allergy Unknown Unverified 02/01/23 11:29 Home Medication Medication Instructions Recorded omeprazole magnesium 20 mg 20 mg PO DAILY 06/08/12 tablet,delayed release (Prilosec OTC) albuterol sulfate 90 mcg/actuation 1 - 2 puff inhalation .Q4-6H PRN 07/25/15 aerosol inhaler (ProAir HFA) finasteride 1 mg tablet (Propecia) 1 mg PO DAILY 07/25/15 glimepiride 4 mg tablet 4 mg PO QAM 12/17/17 multivitamin (Daily Multi-Vitamin 1 tab PO DAILY 12/17/17 tablet) acetaminophen 325 mg tablet 325 - 650 mg (1 - 2 x 325 mg) PO 09/12/18 (Tylenol) Q4H PRN PRN pain #0 tabs pramipexole 0.25 mg tablet 0.25 mg PO QHS #30 tabs 12/31/18 budesonide-formoterol HFA 160 2 puff inhalation BID 10/19/22 mcg-4.5 mcg/actuation aerosol inhaler (Symbicort) empagliflozin 25 mg tablet 25 mg PO DAILY 10/19/22 (Jardiance) sertraline 50 mg tablet 50 mg PO DAILY 10/19/22 dupilumab 100 mg/0.67 mL 200 mg subcut Q2W 01/01/23 subcutaneous syringe (Dupixent) bisacodyl 5 mg tablet,delayed 5 mg PO ONCE colonscopy bowel prep 01/22/23 release (Dulcolax (bisacodyl)) #4 tabs polyethylene glycol 3350 17 238 g PO ONCE colonoscopy prep 01/22/23 gram/dose oral powder #238 grams Current Visit Medications: Current Medications Generic Name Dose Route Start Last Admin Trade Name Freq PRN Reason Stop Dose Admin Hyoscyamine Sulfate 0.125 mg 02/01/23 04:23 Hyoscyamine 0.125 Mg Sl/Oral/Chew SL 03/03/23 04:22 DIRECTED PRN Ringer's Solution 1,000 mls @ 80 mls/hr 02/01/23 06:00 02/01/23 11:49 IV 02/01/23 23:59 80 mls/hr INFUSION BRAYAN Administration IV Miscellaneous Supplies 1 each 02/01/23 06:00 Iv Access IV 02/01/23 23:59 DIRECTED BRAYAN Ondansetron HCl 4 mg 02/01/23 04:23 Ondansetron 4 Mg/2 Ml Vial IVP 03/03/23 04:22 Q4H PRN PRN Nausea / Vomiting Sodium Chloride 0 ml 02/01/23 06:00 Normal Saline Flush 10 Ml Syr IV 02/01/23 23:59 PRN PRN Sodium Chloride 0 ml 02/01/23 06:00 Normal Saline 10 Ml Vial IJ 02/01/23 23:59 DIRECTED PRN Sterile Water 0 ml 02/01/23 06:00 Water,Injection,Sterile 10 Ml Vial IJ 02/01/23 23:59 DIRECTED PRN PFSH Active Problems Active Problems: Problem Status Onset Code Nasal polyp J33.9 Allergic rhinitis J30.9 Restless leg syndrome G25.81 DVT prophylaxis Z29.9 Muscle twitching R25.3 GERD (gastroesophageal reflux disease) K21.9 Asthma J45.909 Acute pancreatitis K85.90 Diabetes mellitus type 2, controlled, without complications E11.9 History of colonic polyps Z86.010 Medical History Medical History Non-insulin dependent type 2 diabetes mellitus poorly controlled with recent HgbA1c of 11.[address] Ruiz's colo referral dated 07/21/18. mg Depression with anxiety pt. states he no longer has this condition Overweight Tubular adenoma of colon Compulsive disorder pt. states he does not have this condition Asthma Seasonal allergies GERD (gastroesophageal reflux disease) BPH (benign prostatic hyperplasia) Surgical History Surgical History History of nasal polypectomy Hx of colonoscopy Hx of knee surgery History of cataract extraction left eye Tobacco Smoking/Tobacco Use Status: Former Tobacco Use Alcohol Alcohol Intake: current Alcohol intake frequency: holidays/special occasions only Alcohol type: beer and hard liquor Substance Use Substance use: Never Substance use type: does not use Vital Signs and Lab Results Vital Signs Most Recent Vital Signs in EMR: Most Recent Vital Signs Temp Pulse Resp BP Pulse Ox 36.9 C 81 16 125/95 H 94 02/01/23 11:32 02/01/23 11:32 02/01/23 11:32 02/01/23 11:32 02/01/23 11:32 Point of Care Results Point of Care Results: Finger Stick Blood Glucose 267 02/01/23 11:54 Lab Results Blood Type / Crossmatch: No Data to Display Complete Blood Count: No Data to Display Complete Metabolic Panel: No Data to Display Liver Function Panel: No Data to Display Coagulation Panel: No Data to Display Cardiac Panel: No Data to Display Arterial Blood Gas: 2 No Data to Display Venous Blood Gas: No Data to Display Pancreas Panel: No Data to Display Thyroid Panel: No Data to Display Infectious Disease: No Data to Display Blood Cultures: No Data to Display Toxicology Panel: No Data to Display Anesthesia Assessment and Plan Anesthesia History Personal History: No History of Anesthesia Complications Family History: No Family History of Anesthesia Complications Exercise Tolerance Exercise Tolerance: Metabolic Equivalents>4 Pertinent Negatives Pertinent Negatives: No Symptoms of GERD Cardiac & Pulmonary Exam Cardiac Exam: Normal S1/S2 Heart Sounds Pulmonary Exam: Clear Bilateral Breath Sounds Implantable Cardiac Device Does patient have a Pacemaker or an ICD?: No Airway Exam Known Difficult Airway: No Mallampati Class: 2 Mouth Opening: Normal (> 3cm) Thyromental Distance: Greater than 3 cm Neck Range of Motion: Full ROM Neck Circumference: Normal Teeth Condition: Normal Dentition ASA Classification ASA Score: ASA 2 Emergency Case?: No NPO Status NPO Status: NPO Clears >2 hours, Solids >8 hours Anesthesia Plan Resuscitation Status: Full Code Anesthesia Technique: General Anesthesia Airway Planned: Natural Airway Monitors Used: Standard Monitors
--- NOTE | 2023-02-01 13:03 | BOWEL_PTH ---
PATIENT: Umair Valdivia LOC: [facility] U#:[id number] AGE/SX: 68/M ROOM: RE02/01/[address]: Monique Matias : 1955 BED: DIS: 02/01/2023 SPEC #: [id number] RECD: 02/01/23 16:12 STATUS: BERT RE #: [id number] REHANA: 02/01/23 13:[address]: Monique Matias DEPT: Surgical Specimen RECD BY: Pam Oconnor ENTERED: 02/01/23 16:13 SP TYPE: Bowel OTHR DR: Gautam Whitaker Tissues: 1 - BIOPSY BOWEL 2 - BIOPSY BOWEL 3 - BIOPSY BOWEL 4 - BIOPSY BOWEL Procedures: GROSS AND MICRO LEVEL 4 Comments: [id number]
[2023-02-01 13:40] VITALS: BP 118/78; PULSE 68; RESP 18; TEMP 36.3; O2SAT 94
--- NOTE | 2023-02-01 13:49 | PDOC.DSDIS_ITS ---
Date of service: 02/01/23 Time of Service: 13:50 Discharge Plan Disposition Patient Disposition: Home Condition: Good Discharge Details Reason For Visit: colon scope Attending Provider: Monique Matias Primary Care Provider: Gautam Whitaker Home Meds and New Rx's Prescriptions: Continued glimepiride 4 mg tablet 4 mg PO QAM multivitamin [Daily Multi-Vitamin] tablet 1 tab PO DAILY Dupixent Syringe 100 mg/0.67 mL syringe 200 mg subcut Q2W pramipexole 0.25 mg tablet 0.25 mg PO QHS Qty: 30 0RF sertraline 50 mg tablet 50 mg PO DAILY Jardiance 25 mg tablet 25 mg PO DAILY budesonide-formoterol [Symbicort] 160-4.5 mcg/actuation HFA aerosol inhaler 2 puff inhalation BID omeprazole magnesium [Prilosec OTC] 20 MG tablet,delayed release (DR/EC) 20 mg PO DAILY albuterol sulfate [ProAir HFA] 200 PUFF HFA aerosol inhaler 1 - 2 puff Inhalation .Q4-6H PRN finasteride [Propecia] 1 MG tablet 1 mg PO DAILY acetaminophen [Tylenol] 325 mg Tablet 325 - 650 mg PO Q4H PRN PRN (Reason: pain) Qty: 0 0RF Rx Instructions: total dose of acetaminophen cannot exceed 4000 mg (4 grams)/day. This includes acetaminophen in percocet. Discontinued polyethylene glycol 3350 17 gram/dose powder 238 g PO ONCE Qty: 238 0RF Rx Instructions: take per colonoscopy instructions bisacodyl [Dulcolax (bisacodyl)] 5 mg tablet,delayed release (DR/EC) 5 mg PO ONCE Qty: 4 0RF Rx Instructions: take per colonoscopy instructions Discharge Instructions Additional Instructions: DSU Colonoscopy Post- Op Instructions Instructions for Everyone who is given Anesthesia: For your safety, please do the following for the next twenty-four (24) hours: *Do Not operate a motor vehicle (car, truck, motorcycle, etc.) *Do Not drink alcoholic beverages or use any recreational drugs for the first 24 hours or while taking pain medications. The medications in your body may have a reaction that can be dangerous. *Do Not make any important decisions or sign any important papers. -No aspirin/ibuprofen/NSAIDs for 5 days Findings: A. Polyps of colon Follow up: My office will send a letter in 2 to 3 weeks time with the results of the biopsies and when to repeat the colonoscopy, most likely 3 to 5 years time 1. No lifting over 20 pounds or strenuous activity for the first 24 hours after your procedure. After 24 hours there are no restrictions on your activity but you may feel fatigued for a few days. 2. After you arrive home you may have a light meal and return to your normal diet as you can tolerate it without feeling sick to your stomach. 3. You may have a bloated, gaseous feeling in your belly (abdomen) after a colonoscopy. Passing gas and belching will help. Walking or lying down on your left side with your knees flexed may relieve the discomfort. Call the office at [phone] (Office) or [phone] (Hospital) right away if you notice any of the following: a.Vomiting of blood or ?coffee ground stools?. b.Rectal bleeding 1Tbsp, blood clots or continuous bleeding. c.Severe belly (abdominal) pain. d.A hard distended belly (abdomen) and an inability to pass gas. 4. Please don?t expect to have a normal BM (bowel movement) for 2-3 days after your procedure. 5. If there are questions regarding the findings of your procedure, please contact your doctor 6. If you are unable to contact your doctor with a problem, contact the hospital at [phone]. 7. Continue all your regular medications unless directed otherwise. I understand the above instructions and have no questions. Signature of Patient or Adult Escort Name of Responsible Adult Escort Signature of Nurse Date/Time Activity:: see above Diet:: see above Discharge Orders Discharge Orders: Discharge Order (Routine); Ordered 01/31/23 Ordered By: Monique Matias DS: Diagnosis Discharge Diagnosis (1) Allergic rhinitis: Status: Acute (2) Restless leg syndrome: Status: Chronic (3) GERD (gastroesophageal reflux disease): Status: Chronic (4) Acute pancreatitis: Status: Acute (5) Diabetes mellitus type 2, controlled, without complications: Status: Acute (6) History of colonic polyps: Status: Chronic (7) BPH (benign prostatic hyperplasia): (8) Adenomatous polyps: Status: Acute Asessment and Plan: The patient is seen and examined after their colonoscopy.? The patient has been able to pass gas.? They are not having abdominal pain.? They have been able to tolerate liquids and a snack.? They do not have any nausea or vomiting.? They are not having any chest pain or shortness of breath.??? They are not having any rectal bleeding. Their vital signs have been stable-see nursing notes. We discussed findings during their colonoscopy, and any biopsies that were done/polyps that were removed. The patient will be sent a letter with any biopsy results, and when to repeat the colonoscopy.-see discharge instructions. Patient was given explicit instructions to follow-up regarding colonoscopy-refer to discharge instructions.? We reviewed resumption of medications. Patient verbalized understanding and discharged in stable and satisfactory condition- See nursing notes.
--- NOTE | 2023-02-01 13:51 | W.ANESPOSTOP ---
Postoperative Evaluation Date, Time and Location Date Performed: 02/01/23 Time Performed: 13:51 Patient Location: Day Surgery Unit Vital Signs Most Recent Imported Vital Signs: Most Recent Vital Signs Temp Pulse Resp BP Pulse Ox 36.9 C 81 16 125/95 H 94 02/01/23 11:32 02/01/23 11:32 02/01/23 11:32 02/01/23 11:32 02/01/23 11:32 Assessment Mental Status: Awake (Alert & Oriented to Patient Baseline) Airway and Respiratory Function: Patent airway with normal (patient baseline) respiratory exam Cardiovascular Function: Hemodynamically Stable Hydration Status: Adequately Hydrated Nausea & Vomiting: No Nausea or Vomiting Pain: Pt. Denies Any Pain Peripheral Nerve Block: Patient did not receive a nerve block
--- NOTE | 2023-02-01 13:54 | W.COLOREPORT ---
Date of service: 02/01/23 Time of Service: 13:54 Colonoscopy Report Date of procedure: 02/01/23 Pre-op diagnosis general: adenomatous polyps Post-op diagnosis procedure note: same Surgeon: Monique Matias Anesthesia Type: General:No Airway Estimated blood loss (mL): 3 Pathology: other Complications: None Disposition: same day Prep: Miralax/Dulcolax Retraction Time: 16 Procedure Description: After informed consent was obtained the patient was taken to the procedure room and placed in a left decubitous position. Monitors were applied and a time out was done. The patients name, date of , procedure, allergies to medications and metal in their body was reviewed. The patient was then sedated. Once sedated and comfortable a rectal exam was done. External exam was normal. Internal exam revealed a normal sphincter tone and no palpable masses. The prostate normal. The scope was then introduced and retrofelexed. Grade II internal hemorrhoids and internal hemorrhoidal tags were identified. The scope was then advanced to the cecum w/out difficulty. The TI and appendiceal orifice were identified. The prep was BBPS 2 in all segments for a total of 6. The scope was then slowly retracted over 16 minutes back into the rectum. He has a flat .5cm polyp at 20cm that is removed w/ a cold biopsy forceps. He has x2 .75cm flat polyps at 70cm that are removed w/ a cold forceps. He has x2 .5cm flat polyps at 60cm that are removed with a cold biopsy forceps. He has a flat .5cm rectal polyp that is removed w/ a cold biopsy forceps. all specimen's are retrieved and no bleeding is noted. The scope was removed and the patient was woken up and taken back to Same day surgery in stable condition. The patient tolerated the procedure well and there were no immediate complications. Follow up: The patient should follow up in 3-5 years unless they develop changes in bowel habits or other new gastrointestinal complaints.
[2023-02-01 14:10] VITALS: BP 127/75; PULSE 57; RESP 20; TEMP 37; O2SAT 96
== END 2023-02-01 14:36 | disposition home or self-care (01) ==
PROVIDERS: PCP Family Medicine; Visit Provider Surgery
PROC: 0DJD8ZZ Inspection of Lower Intestinal Tract, Via Natural or Artificial Opening Endoscopic (ICD-10-PCS; CPT 45378; principal; 2023-02-01 11:45)
DX: Z12.11 Encounter for screening for malignant neoplasm of colon (principal); D12.5 Benign neoplasm of sigmoid colon; K21.9 Gastro-esophageal reflux disease without esophagitis; Z86.010 Personal history of colon polyps; K64.1 Second degree hemorrhoids; D12.4 Benign neoplasm of descending colon
CPT/HCPCS: 45380; 88305; J2001

== ENCOUNTER 2023-09-15 10:55 | Emergency (ER) | payer MEDICARE, SELFPAY ==
[2023-09-15 10:59] VITALS: BP 122/56; PULSE 80; RESP 20; TEMP 36.5; O2SAT 96
--- NOTE | 2023-09-15 11:30 | DI.RAD_ITS ---
Exam(s) XR CHEST 2V PA LATERAL EXAM: XR CHEST 2V PA LATERAL CLINICAL HISTORY: epigastric pain. TECHNIQUE: 2D digital imaging was performed. COMPARISON: CR XR CHEST 2V PA LATERAL from 09/11/2018 CR,XR XR PORTABLE CHEST AP from 12/18/2019 FINDINGS: 2 views: Heart size is normal. The mediastinum is not widened. Right lung is clear. Pleural based density in the lower lateral left lung appears unchanged from 02/2020. Also unchanged from chest x-ray September 2018. IMPRESSION: No acute pulmonary findings.Chronic left lung base findings as described above, unchanged from at [address] 2019. DATA REPOSITORY: RADIATION DOSE DELIVERED:
[2023-09-15 11:36] VITALS: PULSE 69; RESP 11; O2SAT 92
[2023-09-15 11:40] VITALS: PULSE 68; RESP 12; O2SAT 93
[2023-09-15 11:45] LABS: Abs Immature Grans 0.03 10^3/uL (0.0-0.06); Absolute Basophil Count 0.04 10^3/uL (0.0-0.2); Absolute Eosinophil Count 0.35 10^3/uL (0.0-0.7); Absolute Lymphocyte Count 1.35 10^3/uL (1.2-3.4); Absolute Monocyte Count 0.42 10^3/uL (0.1-0.8); Absolute Neutrophil Count 4.83 10^3/uL (1.2-6.7); Basophils % 0.6 %; HCT 45.6 % (40.0-50.0); HGB 15.2 g/dL (13.5-17.5); Immature Grans % 0.4 %; Lymphocytes % 19.2 %; MCH 28.6 pg (27.0-33.0); MCHC 33.3 % (32.0-36.0); MCV 86 fL (80-95); MPV 9.1 fL (8.0-11.0); Neutrophils % 68.8 %; Platelet Count 283 10^3/uL (130-400); RBC 5.31 10^6/uL (4.36-5.78); RDW 12.4 % (11.8-14.1); RDW-SD 38.9 fL; WBC 7.02 10^3/uL (4.4-10.8)
[2023-09-15] MEDS: Ondansetron 4 MG/2 ML VIAL IVP (11:47)
[2023-09-15] MEDS: Normal Saline 1,000 ML 1000 ML IV (11:47)
[2023-09-15] MEDS: Pantoprazole 40 MG VIAL IVP (11:48)
[2023-09-15 11:50] VITALS: PULSE 67; RESP 10; O2SAT 94
[2023-09-15] MEDS: FAMOTIDINE 20 MG in Normal Saline 100 ML 400 MG IVPB (11:50)
[2023-09-15 12:01] VITALS: PULSE 64; RESP 12; O2SAT 94
[2023-09-15 12:02] LABS: ALT 39 U/L (16-63); AST 15 U/L (15-37); Albumin 3.5 g/dL (3.4-5.0); Alkaline Phosphatase 79 U/L (46-116); Anion Gap 11.7 mmol/L (3-11); BUN 16 mg/dL (7-18); Bilirubin, Total 0.5 mg/dL (0.2-1.0); CO2 27.3 mmol/L (21.0-32.0); CREATININE 0.8 mg/dL (0.70-1.30); Calcium 8.9 mg/dL (8.5-10.1); Chloride 101 mmol/L (98-107); Glucose 153 mg/dL (74-106); Lipase 22 U/L (16-77); Potassium 3.9 mmol/L (3.5-5.1); Sodium 140 mmol/L (136-145); Total Protein 7.3 g/dL (6.4-8.2); Troponin I < 50 ng/L (< or =60)
[2023-09-15 12:10] VITALS: PULSE 64; RESP 11; O2SAT 94
[2023-09-15 12:39] LABS: Bilirubin Negative (Negative); Blood Negative (Negative); Clarity Sl Cloudy (Clear); Glucose 500 mg/dL (Negative); Ketones >=160 mg/dL (Negative); Leukocyte Esterase Trace (Negative); Nitrite Negative (Negative); Specific Gravity 1.015 (1.005-1.025); Urobilinogen 0.2 mg/dL (Up to 0.2)
[2023-09-15 12:43] LABS: Bacteria Many HPF (Negative); C & S Indicated? Yes; Casts Negative LPF (Negative); Crystals Negative HPF (Negative); Epithelial Cells Few HPF (Negative); Mucus Negative (Negative); RBC 0-2 HPF (0-2); WBC >50 HPF (0-5)
--- NOTE | 2023-09-15 13:20 | DI.VRAD_ITS ---
PROCEDURE INFORMATION: Exam: XR Chest Exam date and time: 09/15/2023 12:59 PM Age: 68 years old Clinical indication: Other: Epigastric pain TECHNIQUE: Imaging protocol: Radiologic exam of the chest. Views: 2 views. COMPARISON: XR PORTABLE CHEST AP 12/18/2019 10:29 PM FINDINGS: Lungs: Lungs are somewhat hyperexpanded with diaphragmatic flattening but remain clear with no infiltrate or nodule. Pleural spaces: Unremarkable. No pleural effusion. No pneumothorax. Heart/Mediastinum: Cardiomediastinal silhouette is normal. Bones/joints: Unremarkable. IMPRESSION: No active cardiopulmonary disease. Dictated and Authenticated by: Tony Vela MD. Ordering:BLAS Orozco MD
--- NOTE | 2023-09-15 13:48 | NUR.NOTE ---
Referral [facility] for chronic [facility], needs endoscopy, for next available. Nursing Note:
--- NOTE | 2023-09-15 14:06 | ED.GENADUL_ITS ---
Discharge Plan Disposition Patient Disposition: Home Discharge Details Clinical Impression: Acute UTI, GERD (gastroesophageal reflux disease), Nausea & vomiting Primary Care Provider: Gautam Whitaker ED Provider: Pam Torres Home Meds and New Rx's Prescriptions: New ondansetron HCl 4 mg tablet 4 mg PO Q6H PRNQty: 10 0RF esomeprazole magnesium 20 mg capsule,delayed release(DR/EC) 20 mg PO BID Qty: 60 0RF nitrofurantoin monohyd/m-cryst [Macrobid] 100 mg capsule 100 mg PO Q12H Qty: 20 0RF Rx Instructions: must administer with a meal/food Continued glimepiride 4 mg tablet 4 mg PO BID multivitamin [Daily Multi-Vitamin] tablet 1 tab PO DAILY Dupixent Syringe 100 mg/0.67 mL syringe 200 mg subcut Q2W sertraline 50 mg tablet 50 mg PO DAILY Jardiance 25 mg tablet 25 mg PO DAILY budesonide-formoterol [Symbicort] 160-4.5 mcg/actuation HFA aerosol inhaler 2 puff inhalation BID omeprazole magnesium [Prilosec OTC] 20 MG tablet,delayed release (DR/EC) 20 mg PO DAILY albuterol sulfate [ProAir HFA] 200 PUFF HFA aerosol inhaler 1 - 2 puff Inhalation .Q4-6H PRN finasteride [Propecia] 1 MG tablet 1 mg PO DAILY sucralfate 1 gram tablet 1 g PO QID famotidine 20 mg tablet 20 mg PO BID acetaminophen [Tylenol] 325 mg Tablet 325 - 650 mg PO Q4H PRN PRN (Reason: pain) Qty: 0 0RF Rx Instructions: total dose of acetaminophen cannot exceed 4000 mg (4 grams)/day. This includes acetaminophen in percocet. Discharge Instructions Instructions: Urinary Tract Infection in Men (ED), GERD (Gastroesophageal Reflux Disease) (ED), Acute Nausea and Vomiting (ED) Additional Instructions: Take the esomeprazole twice daily and your Carafate as prescribed I am placing a referral list for endoscopy, take the antibiotic for the urinary tract infection and yogurt daily while on antibiotic Take your Zofran as needed for nausea and vomiting and continue with bland diet Return with fever, chills, new or worsening symptoms recommendation for recheck in 24 to 48 hours Referrals: Gautam Whitaker MD [Primary Care Provider] - John Hudson MD [ [facility] STAFF PHYSICIAN] - 1 week (endoscopy) Discharge Data Discharge Date/Time-TO BE ENTERED AT DEPARTURE: 09/15/23 13:50 HPI General Date/Time Provider Initiated Documentation: 09/15/23 11:08 . HPI Narrative: 68-year-old male presents with nausea, vomiting, and worsening heartburn per patient. States he woke up this morning at 3 AM and had 3 episodes of vomiting. Denies new heartburn today. Patient states he has had heartburn for the past 30 years that has been well-controlled with PPIs and states he has never had persistent nausea like this before. He denies any chest pain or shortness of breath. A denies any current abdominal pain at all. Denies blood in vomitus. Denies any diarrhea. Denies any significant change in meds although he has been taking Carafate since last evening which feels like help with the symptoms initially. Denies changes in diet. Stopped smoking approximately 9 months ago and has not had a drink of alcohol in several years per patient. States he was in a study at [facility] for GERD but has never had an endoscopy. Related Data Home Medications Medication Instructions Recorded Confirmed omeprazole magnesium 20 mg 20 mg PO DAILY 06/08/12 09/15/23 tablet,delayed release (Prilosec OTC) albuterol sulfate 90 mcg/actuation 1 - 2 puff inhalation .Q4-6H PRN 07/25/15 09/15/23 aerosol inhaler (ProAir HFA) finasteride 1 mg tablet (Propecia) 1 mg PO DAILY 07/25/15 09/15/23 glimepiride 4 mg tablet 4 mg PO BID 12/17/17 09/15/23 multivitamin (Daily Multi-Vitamin 1 tab PO DAILY 12/17/17 09/15/23 tablet) acetaminophen 325 mg tablet 325 - 650 mg (1 - 2 x 325 mg) PO 09/12/18 09/15/23 (Tylenol) Q4H PRN PRN pain #0 tabs budesonide-formoterol HFA 160 2 puff inhalation BID 10/19/22 09/15/23 mcg-4.5 mcg/actuation aerosol inhaler (Symbicort) empagliflozin 25 mg tablet 25 mg PO DAILY 10/19/22 09/15/23 (Jardiance) sertraline 50 mg tablet 50 mg PO DAILY 10/19/22 09/15/23 dupilumab 100 mg/0.67 mL 200 mg subcut Q2W 01/01/23 09/15/23 subcutaneous syringe (Dupixent) esomeprazole magnesium 20 mg 20 mg PO BID #60 caps 09/15/23 capsule,delayed release famotidine 20 mg tablet 20 mg PO BID 09/15/23 09/15/23 nitrofurantoin 100 mg PO Q12H #20 caps 09/15/23 monohydrate/macrocrystals 100 mg capsule (Macrobid) ondansetron HCl 4 mg tablet 4 mg PO Q6H PRN #10 tabs 09/15/23 sucralfate 1 gram tablet 1 g PO QID 09/15/23 09/15/23 Previous Rx's Medication Instructions Recorded acetaminophen 325 mg tablet 325 - 650 mg (1 - 2 x 325 mg) PO 09/12/18 (Tylenol) Q4H PRN PRN pain #0 tabs esomeprazole magnesium 20 mg 20 mg PO BID #60 caps 09/15/23 capsule,delayed release nitrofurantoin 100 mg PO Q12H #20 caps 09/15/23 monohydrate/macrocrystals 100 mg capsule (Macrobid) ondansetron HCl 4 mg tablet 4 mg PO Q6H PRN #10 tabs 09/15/23 Allergies Allergy/AdvReac Type Severity Reaction Status Date / Time liraglutide [From Victoza] Allergy Intermediate Severe Verified 09/15/23 11:03 diarrhea metformin AdvReac Mild Other (See Verified 09/15/23 11:03 Comment) ibuprofen AdvReac Unknown Other (See Unverified 09/15/23 11:03 Comment) General Stated Complaint: Nausea/Vomit/Diar HONEY: 3 Exam Narrative Exam Narrative: Alert, oriented, moist mucous membranes, no abdominal tenderness, lungs clear to auscultation bilaterally, no respiratory distress, cardiac rate rhythm regular, no peripheral edema Course Vital Signs Vital signs: Vital Signs Temperature 36.5 C 09/15/23 10:59 Pulse 80 09/15/23 10:59 Respiratory Rate 20 09/15/23 10:59 Blood Pressure 122/56 L 09/15/23 10:59 Pulse Oximetry 96 09/15/23 10:59 Temperature 36.5 C 09/15/23 10:59 Temperature Source Skin 09/15/23 10:59 Pulse 80 09/15/23 10:59 Pulse 64 09/15/23 12:10 Respiratory Rate 11 L 09/15/23 12:10 Respiratory Effort Normal, Non-Labored 09/15/23 11:06 Blood Pressure 122/56 L 09/15/23 10:59 Blood Pressure Position Sitting 09/15/23 10:59 Pulse Oximetry 94 09/15/23 12:10 Oxygen Delivery Method Room Air 09/15/23 10:59 Oxygen Flow Rate 0 09/15/23 10:59 Pain Level 0 09/15/23 10:59 Lab/Test Results Lab/Test Results: 09/15/23 12:24 Urine - Reflex from Ua Urine Culture - Pending Laboratory Tests Range/Units 09/15/23 09/15/23 11:30 12:24 WBC (4.4-10.8) 10^3/uL 7.02 RBC (4.36-5.78) 10^6/uL 5.31 Hgb (13.5-17.5) g/dL 15.2 Hct (40.0-50.0) % 45.6 MCV (80-95) fL 86 MCH (27.0-33.0) pg 28.6 MCHC (32.0-36.0) % 33.3 RDW (11.8-14.1) % 12.4 Plt Count (130-400) 10^3/uL 283 MPV (8.0-11.0) fL 9.1 Immature Gran % % 0.4 Neutrophils % % 68.8 Lymphocytes % % 19.2 Monocytes % % 6.0 Eosinophils % % 5.0 Basophils % % 0.6 Nucleated RBC % (0.0-0.3) % 0.0 Absolute Neutrophils (1.2-6.7) 10^3/uL 4.83 Absolute Lymphocytes (1.2-3.4) 10^3/uL 1.35 Absolute Monocytes (0.1-0.8) 10^3/uL 0.42 Absolute Eosinophils (0.0-0.7) 10^3/uL 0.35 Absolute Basophils (0.0-0.2) 10^3/uL 0.04 Sodium (136-145) mmol/L 140 Potassium (3.5-5.1) mmol/L 3.9 Chloride (98-107) mmol/L 101 Carbon Dioxide (21.0-32.0) mmol/L 27.3 Anion Gap (3-11) mmol/L 11.7 H BUN (7-18) mg/dL 16 Creatinine (0.70-1.30) mg/dL 0.8 Est GFR (CKD-EPI 2020) (mL/min/1.73m2) 97.00 Glucose (74-106) mg/dL 153 H Calcium (8.5-10.1) mg/dL 8.9 Magnesium (1.8-2.4) mg/dL 2.0 Total Bilirubin (0.2-1.0) mg/dL 0.5 AST (15-37) U/L 15 ALT (16-63) U/L 39 Alkaline Phosphatase (46-116) U/L 79 Troponin I (< or =60) ng/L < 50 Total Protein (6.4-8.2) g/dL 7.3 Albumin (3.4-5.0) g/dL 3.5 Lipase (16-77) U/L 22 Urine Color (Yellow) Yellow Urine Clarity (Clear) Sl Cloudy Urine pH (5-8) 6.0 Ur Specific [place] (1.005-1.025) 1.015 Urine Protein (Neg-Trace) mg/dL Negative Urine Ketones (Negative) mg/dL >=160 H Urine Blood (Negative) Negative Urine Nitrite (Negative) Negative Urine Bilirubin (Negative) Negative Urine Urobilinogen (Up to 0.2) mg/dL 0.2 Ur Leukocyte Esterase (Negative) Trace H Urine RBC (0-2) HPF 0-2 Urine WBC (0-5) HPF >50 H Ur Epithelial Cells (Negative) HPF Few Urine Crystals (Negative) HPF Negative Urine Bacteria (Negative) HPF Many Urine Casts (Negative) LPF Negative Urine Mucus (Negative) Negative Ur Culture Indicated? Yes Urine Glucose (Negative) mg/dL 500 H Medical Decision Making 68-year-old male presenting with nausea, vomiting, report of worsening GERD despite taking numerous meds. H. pylori test is pending which was performed in the emergency department. Patient was switched to as omeprazole and will continue on Pepcid and Carafate. Urinalysis was checked and patient has greater than 50 white blood cells and many bacteria, will treat with Macrobid for 10 days. Patient will also be supplied with Zofran, able to tolerate p.o. at time of discharge. No leukocytosis, gap of 11.7, glucose of 153, encouraged to have glucose rechecked by primary care physician will refer to endoscopy this patient has had poorly controlled heartburn over the course of the month with 30 years of heartburn without prior endoscopy. Patient is given low threshold to return with new or worsening complaints, no evidence of systemic illness at time of reassessment, return precautions reviewed and patient expressed understanding, discharged home ambulatory steady gait in no acute distress Quality:SDOH Health Related Social Needs: No Data to Display PFSH All Active Problems (Updated 09/15/23 @ 13:28 by SIMI Saez) Nausea & vomiting (Acute) Acute UTI (Acute) Adenomatous polyps (Acute) Nasal polyp (Acute) Allergic rhinitis (Acute) Restless leg syndrome (Chronic) DVT prophylaxis (Acute) Muscle twitching (Acute) GERD (gastroesophageal reflux disease) (Chronic) Asthma (Chronic) Acute pancreatitis (Acute) Diabetes mellitus type 2, controlled, without complications (Acute) History of colonic polyps (Chronic) 08/29/18 Dr Monique Matias, tubular adenoma x 4, repeat 3 years. Medical History (Updated 09/15/23 @ 13:28 by SIMI Saez) Non-insulin dependent type 2 diabetes mellitus poorly controlled with recent HgbA1c of 11.[address] Ruiz's colo referral dated 07/21/18. mg Depression with anxiety pt. states he no longer has this condition Overweight Tubular adenoma of colon Compulsive disorder pt. states he does not have this condition Asthma Seasonal allergies GERD (gastroesophageal reflux disease) BPH (benign prostatic hyperplasia) Surgical History (Updated 02/04/23 @ 10:39 by Shannon Valladares) History of nasal polypectomy Hx of colonoscopy (~01/2023) Hx of knee surgery History of cataract extraction left eye Family History Paternal Aunt ALS (amyotrophic lateral sclerosis) Paternal Aunt ALS (amyotrophic lateral sclerosis) Paternal Cousin ALS (amyotrophic lateral sclerosis) multiple Social History Smoking/Tobacco Use Status: Former Tobacco Use Quit Date: 08/07/03 Pack-years: 17 Tobacco: How many years used: 17 Smoking risk assessment performed?: Yes Alcohol Intake: current Alcohol Intake frequency: holidays/special occasions only Alcohol type: beer and hard liquor Drug use: Never Substance use type: does not use Household members: spouse Housing: house 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
--- NOTE | 2023-09-17 15:47 | W.ED.FU ---
Date of service: 09/17/23 Time of Service: 15:48 Follow Up Plan: Reviewed urine culture results which shows greater than 100,000 Streptococcus Agalactiae. Patient was placed on Nitrofurantoin on 09-15-23. Will send Cephalexin 500 mg BID to pharmacy on file. Patient called left voicemail no answer.
== END 2023-09-15 13:50 | disposition home or self-care (01) ==
PROVIDERS: Emergency Provider Physician Assistant; PCP Family Medicine
DX: N39.0 Urinary tract infection, site not specified (principal); K21.9 Gastro-esophageal reflux disease without esophagitis; R11.2 Nausea with vomiting, unspecified; E11.9 Type 2 diabetes mellitus without complications; Z79.84 Long term (current) use of oral hypoglycemic drugs; Z79.85 Long-term (current) use of injectable non-insulin antidiabetic drugs; Z87.891 Personal history of nicotine dependence
CPT/HCPCS: 80053; 83690; 87077; 96361; 96365; 96375; 99284; 71046; 81003; 81015; 83013; 83735; 84484; 85025; 87086; J2405; J2470

== ENCOUNTER 2023-09-16 20:14 | Observation (INO) | payer MEDICARE, SELFPAY ==
--- NOTE | 2023-09-16 20:15 | RT.EKG_ITS ---
APPROVED REPORT Exam: Resting ECG Reason for Exam: vomitting, dehydration Patient Location: E HR:70 bpm ECG Measurements Heart Rate 70 AXIS NH 213 P 43 QRSd 105 QRS -29 QT 414 T 59 QTc 447 Conclusion Sinus rhythm 70 normal axis no stemi
[2023-09-16 20:18] VITALS: BP 151/75; PULSE 85; RESP 18; TEMP 36.8; O2SAT 94
[2023-09-16 20:28] VITALS: BP 151/75; PULSE 85; RESP 18; TEMP 36.8; O2SAT 94
--- NOTE | 2023-09-16 20:45 | DI.CT_ITS ---
Exam(s) CT ABDOMEN PELVIS W EXAM: CT ABDOMEN PELVIS W CLINICAL HISTORY: nausea, vomiting, abd pain TECHNIQUE: Imaging Protocol: Axial computed tomography images with coronal and sagittal reformatted images were created and reviewed. CONTRAST MATERIAL: Intravenous: Omnipaque 350 Contrast volume:100 mL Oral: No COMPARISON: CT CT ABDOMEN PELVIS W from 09/10/2018 FINDINGS: ABDOMEN: Lung Bases: There is mild diffuse thickening of the wall of the distal esophagus. This is nonspecifi c. 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 Neoplasm cannot be excluded. Liver: Normal density. No measurable mass. Portal, Superior Mesenteric, and Splenic Veins: Unremarkable. Gallbladder and Biliary Tract: No radiodense calculus or dilation. Pancreas: Normal density, no abnormal calcifications or inflammatory process. Spleen: Normal. Adrenals: No masses seen. Kidneys: Normal size, contour and axis. There is a nonobstructing stone in the lower pole of the left kidney. Simple cysts are seen in the kidneys. No follow-up is recommended. Abdominal Aorta: Abdominal portion non-dilated. Atherosclerotic calcification is present. Bowel: There are few diverticula seen in the colon. There is diffuse thickening of the wall of the c olon throughout its entire length. Mild stranding is seen around the colon. The findings are suspic ious for inflammatory infectious colitis. There is no evidence of bowel obstruction. No evidence of appendicitis. Peritoneal Cavity: There is a trace amount of free fluid in the pelvis. No free air. Lymph Nodes: Within normal limits. Bones: Within normal limits for the patient's age. Soft Tissues: Unremarkable. PELVIS: Bladder: There is diffuse thickening of the wall of the urinary bladder. Reproductive Organs: Unremarkable as visualized. Lymph Nodes: Within normal limits. Bones: Within normal limits for the patient's age. IMPRESSION: 1. Diffuse thickening of the wall of the colon with stranding seen around the colon consistent with i nfectious/inflammatory colitis. 2. Trace amount of free fluid in the pelvis. No pneumoperitoneum. 3. Diffuse thickening of the wall of the urinary bladder. This may be due to underdistention, cystit is should also be considered. 4. Left nephrolithiasis. No hydronephrosis. 5. Diffuse thickening of the wall of the distal esophagus. Esophagitis should be considered. Mass c annot be entirely excluded. Follow-up as clinically appropriate. RADIATION DOSE DELIVERED: 1,265.48mGy.cm Total DLP DATA REPOSITORY: All CT scans at this facility are submitted to the National Radiology Data Registry (NRDR) Dose Index Registry (DIR) with the [employer] (ACR). RADIATION OPTIMIZATION: All CT scans at this facility use at least one of these dose optimization te chniques: automated exposure control; mA and/or kV adjustment per patient size (includes targeted exa ms where dose is matched to clinical indication); or iterative reconstruction.
[2023-09-16 21:24] VITALS: PULSE 66; RESP 16; O2SAT 96
[2023-09-16 21:30] VITALS: PULSE 69; RESP 10; O2SAT 96
[2023-09-16] MEDS: Omnipaque 350 MG/ML 100 ML BTL IJ (21:31)
[2023-09-16] MEDS: Normal Saline 1,000 ML 1000 ML IV (21:32)
[2023-09-16] MEDS: Normal Saline - Diluent 50 ML VIAL IJ (21:32)
[2023-09-16] MEDS: Normal Saline Flush 10 ML SYR IVP (21:33)
[2023-09-16] MEDS: Prochlorperazine 10 MG/2 ML VIAL 5 MG IVP (21:33)
[2023-09-16 21:35] LABS: Lactate 0.8 mmol/L (0.6-1.4)
[2023-09-16 21:37] LABS: Abs Immature Grans 0.04 10^3/uL (0.0-0.06); Absolute Basophil Count 0.04 10^3/uL (0.0-0.2); Absolute Eosinophil Count 0.72 10^3/uL (0.0-0.7); Absolute Lymphocyte Count 1.58 10^3/uL (1.2-3.4); Absolute Monocyte Count 0.62 10^3/uL (0.1-0.8); Absolute Neutrophil Count 6.13 10^3/uL (1.2-6.7); Basophils % 0.4 %; Eosinophils % 7.9 %; HCT 47.7 % (40.0-50.0); HGB 15.6 g/dL (13.5-17.5); Immature Grans % 0.4 %; Lymphocytes % 17.3 %; MCH 28.6 pg (27.0-33.0); MCHC 32.7 % (32.0-36.0); MCV 88 fL (80-95); MPV 9.2 fL (8.0-11.0); Monocytes % 6.8 %; Neutrophils % 67.2 %; Platelet Count 305 10^3/uL (130-400); RBC 5.45 10^6/uL (4.36-5.78); RDW 12.3 % (11.8-14.1); RDW-SD 39.7 fL; WBC 9.13 10^3/uL (4.4-10.8)
[2023-09-16 21:40] VITALS: PULSE 66; RESP 14
[2023-09-16 21:55] LABS: ALT 35 U/L (16-63); AST 20 U/L (15-37); Albumin 3.8 g/dL (3.4-5.0); Alkaline Phosphatase 82 U/L (46-116); Anion Gap 12.1 mmol/L (3-11); BUN 14 mg/dL (7-18); Bilirubin, Total 0.5 mg/dL (0.2-1.0); CO2 24.9 mmol/L (21.0-32.0); CREATININE 0.8 mg/dL (0.70-1.30); Calcium 8.8 mg/dL (8.5-10.1); Chloride 99 mmol/L (98-107); Glucose 78 mg/dL (74-106); Lipase 30 U/L (16-77); Potassium 3.7 mmol/L (3.5-5.1); Sodium 136 mmol/L (136-145); Total Protein 7.9 g/dL (6.4-8.2); Troponin I < 50 ng/L (< or =60)
[2023-09-16] MEDS: cefTRIAXone 1 GM/50 ML BAG IVPB (22:41)
--- NOTE | 2023-09-16 23:07 | DI.VRAD_ITS ---
PROCEDURE INFORMATION: Exam: CT Abdomen And Pelvis With Contrast Exam date and time: 09/16/2023 9:55 PM Age: 68 years old Clinical indication: Nausea and vomiting and other: Pain TECHNIQUE: Imaging protocol: Computed tomography of the abdomen and pelvis with contrast. Contrast material: OMNIPAQUE 350; Contrast volume: 100 ml; Contrast route: INTRAVENOUS (IV); COMPARISON: CT ABDOMEN PELVIS W 09/10/2018 6:13 PM FINDINGS: Esophagus: There is thickening of the distal esophageal wall. Liver: There is a diffuse decrease in hepatic parenchymal density, consistent with mild fatty infiltration. There are no focal liver lesions present. Gallbladder and bile ducts: Normal. No calcified stones. No ductal dilation. Pancreas: The pancreas is normal. Spleen: The spleen is normal. The spleen is normal. Adrenal glands: The adrenal glands are normal. Kidneys and ureters: Bilateral simple renal cysts the largest within the right kidney measuring 16 mm largest within the left kidney measuring 17 mm. Stomach and bowel: There are fluid-filled loops of small bowel with air-fluid levels. No significant bowel wall thickening or inflammatory changes. No evidence of obstruction. Consider early enteritis. There is diffuse inflammatory bowel wall thickening involving the ascending, transverse, descending and sigmoid colon. There is bowel wall edema. There is adjacent inflammatory change seen within the peritoneal fat and mesentery. This likely represents acute colitis. An underlying mass is not excluded. There is no evidence of intestinal obstruction. Appendix: A normal appendix is identified. There is no evidence of distention or periappendiceal inflammation to suggest appendicitis. Intraperitoneal space: There is no free intraperitoneal air. There is no evidence of free intraperitoneal or pelvic fluid. Vasculature: Mild atherosclerosis of the aorta and peripheral vasculature. No abdominal aortic aneurysm. Lymph nodes: There is no evidence of lymphadenopathy. Urinary bladder: There is nonspecific bladder wall thickening. This may be related to incomplete bladder filling. Reproductive: The prostate gland demonstrates calcification and moderate nonspecific enlargement. The seminal vesicles are normal. Bones/joints: There are diffuse enthesopathic changes consistent with benign diffuse idiopathic skeletal hyperostosis (DISH). Bxjo-ti-vrynxjgn degenerative changes of the lumbar spine. Soft tissues: The extra-abdominal soft tissues are normal. IMPRESSION: 1. There is diffuse inflammatory bowel wall thickening involving the ascending, transverse, descending and sigmoid colon. There is bowel wall edema. There is adjacent inflammatory change seen within the peritoneal fat and mesentery. This likely represents acute colitis. An underlying mass is not excluded. 2. There is thickening of the distal esophageal wall. 3. There are fluid-filled loops of small bowel with air-fluid levels. No significant bowel wall thickening or inflammatory changes. No evidence of obstruction. Consider early enteritis. Dictated and Authenticated by: Ward Diaz MD. Ordering:BLAS Orozco MD
--- NOTE | 2023-09-16 23:18 | ED.GENADUL_ITS ---
Discharge Plan Disposition Patient Disposition: Admit to [facility] Condition: Stable Discharge Details Clinical Impression: Acute UTI Admit Date/Time: 09/16/23 23:47 Admit Provider: Gumaro Fleming Attending Provider: Gumaro Fleming Primary Care Provider: Gautam Whitaker ED Provider: Pam Torres Discharge Data Discharge Date/Time-TO BE ENTERED AT DEPARTURE: 09/17/23 01:03 HPI General Date/Time Provider Initiated Documentation: 09/16/23 20:55 . HPI Narrative: This 68-year-old male presents for return visit of persistent and uncontrolled nausea and vomiting with diagnosis of urinary tract infection yesterday. He has been unable to tolerate his antibiotics today and despite taking Zofran every 8 hours has had persistent nausea and vomiting. He has not been able to tolerate anything p.o. today. He does state he has had some abdominal pain and diarrhea today which denies any sort of blood associated. Denies any chest pain or shortness of breath. He states he feels quite weak and tired. He denies any known sick contacts. He denies any prior history of colitis. Related Data Home Medications Medication Instructions Recorded Confirmed omeprazole magnesium 20 mg 20 mg PO DAILY 06/08/12 09/16/23 tablet,delayed release (Prilosec OTC) albuterol sulfate 90 mcg/actuation 1 - 2 puff inhalation .Q4-6H PRN 07/25/15 09/16/23 aerosol inhaler (ProAir HFA) finasteride 1 mg tablet (Propecia) 1 mg PO DAILY 07/25/15 09/16/23 glimepiride 4 mg tablet 4 mg PO BID 12/17/17 09/16/23 multivitamin (Daily Multi-Vitamin 1 tab PO DAILY 12/17/17 09/16/23 tablet) acetaminophen 325 mg tablet 325 - 650 mg (1 - 2 x 325 mg) PO 09/12/18 09/16/23 (Tylenol) Q4H PRN PRN pain #0 tabs budesonide-formoterol HFA 160 2 puff inhalation BID 10/19/22 09/16/23 mcg-4.5 mcg/actuation aerosol inhaler (Symbicort) empagliflozin 25 mg tablet 25 mg PO DAILY 10/19/22 09/16/23 (Jardiance) sertraline 50 mg tablet 50 mg PO DAILY 10/19/22 09/16/23 dupilumab 100 mg/0.67 mL 200 mg subcut Q2W 01/01/23 09/16/23 subcutaneous syringe (PixtrixThe Poker Barrel) famotidine 20 mg tablet 20 mg PO BID 09/15/23 09/16/23 ondansetron HCl 4 mg tablet 4 mg PO Q6H PRN #10 tabs 09/15/23 09/16/23 sucralfate 1 gram tablet 1 g PO QID 09/15/23 09/16/23 amoxicillin 875 mg-potassium 1 tab PO BID #16 tabs 09/19/23 clavulanate 125 mg tablet Previous Rx's Medication Instructions Recorded acetaminophen 325 mg tablet 325 - 650 mg (1 - 2 x 325 mg) PO 09/12/18 (Tylenol) Q4H PRN PRN pain #0 tabs ondansetron HCl 4 mg tablet 4 mg PO Q6H PRN #10 tabs 09/15/23 amoxicillin 875 mg-potassium 1 tab PO BID #16 tabs 09/19/23 clavulanate 125 mg tablet Allergies Allergy/AdvReac Type Severity Reaction Status Date / Time liraglutide [From Victoza] Allergy Intermediate Severe Verified 09/16/23 20:21 diarrhea metformin AdvReac Mild Other (See Verified 09/16/23 20:21 Comment) ibuprofen AdvReac Unknown Other (See Unverified 09/16/23 20:21 Comment) General Stated Complaint: Abd Prob HONEY: 3 Exam Const General: cooperative, comfortable and no acute distress Resp Effort & Inspection: normal respiratory effort Auscultation: clear to auscultation bilaterally Cardio Rate: regular rate Rhythm: regular rhythm GI Inspection: normal to inspection Other: tenderness bilateral lower quadrants, no rebounding or guarding Skin General skin exam: no rashes or lesions noted Other: pallor Neuro General: patient alert and patient oriented x3 Extrem Other: distal pulses intact Course Vital Signs Vital signs: Vital Signs Temperature 36.8 C 09/16/23 20:18 Pulse 85 09/16/23 20:18 Respiratory Rate 18 09/16/23 20:18 Blood Pressure 151/75 H 09/16/23 20:18 Pulse Oximetry 94 09/16/23 20:18 Temperature 36.8 C 09/16/23 20:28 Pulse 85 09/16/23 20:28 Pulse 66 09/16/23 21:40 Respiratory Rate 14 09/16/23 21:40 Respiratory Effort Normal 09/16/23 20:20 Blood Pressure 151/75 H 09/16/23 20:28 Blood Pressure Position Sitting 09/16/23 20:28 Pulse Oximetry 96 09/16/23 21:30 Oxygen Delivery Method Room Air 09/16/23 20:28 Oxygen Flow Rate 0 09/16/23 20:28 Pain Level 1 09/16/23 20:28 Lab/Test Results Lab/Test Results: 09/16/23 21:47 Blood Blood Culture - Pending 09/16/23 21:28 Blood Blood Culture - Pending Laboratory Tests Range/Units 09/16/23 21:28 WBC (4.4-10.8) 10^3/uL 9.13 RBC (4.36-5.78) 10^6/uL 5.45 Hgb (13.5-17.5) g/dL 15.6 Hct (40.0-50.0) % 47.7 MCV (80-95) fL 88 MCH (27.0-33.0) pg 28.6 MCHC (32.0-36.0) % 32.7 RDW (11.8-14.1) % 12.3 Plt Count (130-400) 10^3/uL 305 MPV (8.0-11.0) fL 9.2 Immature Gran % % 0.4 Neutrophils % % 67.2 Lymphocytes % % 17.3 Monocytes % % 6.8 Eosinophils % % 7.9 Basophils % % 0.4 Nucleated RBC % (0.0-0.3) % 0.0 Absolute Neutrophils (1.2-6.7) 10^3/uL 6.13 Absolute Lymphocytes (1.2-3.4) 10^3/uL 1.58 Absolute Monocytes (0.1-0.8) 10^3/uL 0.62 Absolute Eosinophils (0.0-0.7) 10^3/uL 0.72 H Absolute Basophils (0.0-0.2) 10^3/uL 0.04 VBG Lactate (0.6-1.4) mmol/L 0.8 Sodium (136-145) mmol/L 136 Potassium (3.5-5.1) mmol/L 3.7 Chloride (98-107) mmol/L 99 Carbon Dioxide (21.0-32.0) mmol/L 24.9 Anion Gap (3-11) mmol/L 12.1 H BUN (7-18) mg/dL 14 Creatinine (0.70-1.30) mg/dL 0.8 Est GFR (CKD-EPI 2020) (mL/min/1.73m2) 97.00 Glucose (74-106) mg/dL 78 Calcium (8.5-10.1) mg/dL 8.8 Magnesium (1.8-2.4) mg/dL 2.0 Total Bilirubin (0.2-1.0) mg/dL 0.5 AST (15-37) U/L 20 ALT (16-63) U/L 35 Alkaline Phosphatase (46-116) U/L 82 Troponin I (< or =60) ng/L < 50 Total Protein (6.4-8.2) g/dL 7.9 Albumin (3.4-5.0) g/dL 3.8 Lipase (16-77) U/L 30 Medical Decision Making 68-year-old male presenting for return visit of uncontrolled nausea and inability to take antibiotic, vomited 2 doses of Macrobid which was prescribed yesterday for suspected urinary tract infection and a positive culture today without sensitivities returned yet. Vitals are actually stable and patient is afebrile. He started having diarrhea today. Has thrush on assessment. I will order Diflucan however patient is nauseous we will hold for now. Will treat with ceftriaxone as patient has been unable to tolerate the oral Macrobid. CT scan does not show evidence of hydronephrosis or stone, however patient does have evidence of cystitis and extensive colitis. Will order stool samples and hold on treating with antibiotics for colitis at this time. Will give Zofran for nausea and fluids. Plan is to admit patient as he has a urinary tract infection and is unable to tolerate p.o. at home and has failed outpatient trial of antibiotics Quality:SDOH Health Related Social Needs: No Data to Display PFSH All Active Problems (Updated 09/21/23 @ 08:15 by SIMI Saez) Acute UTI (Acute) Adenomatous polyps (Acute) Nasal polyp (Acute) Allergic rhinitis (Acute) Restless leg syndrome (Chronic) DVT prophylaxis (Acute) Muscle twitching (Acute) History of colonic polyps (Chronic) 08/29/18 Dr Monique Matias, tubular adenoma x 4, repeat 3 years. Medical History Non-insulin dependent type 2 diabetes mellitus poorly controlled with recent HgbA1c of 11.[address] Ruiz's colo referral dated 07/21/18. mg Depression with anxiety pt. states he no longer has this condition Overweight Tubular adenoma of colon Compulsive disorder pt. states he does not have this condition Asthma Seasonal allergies GERD (gastroesophageal reflux disease) BPH (benign prostatic hyperplasia) Surgical History History of nasal polypectomy Hx of colonoscopy (~01/2023) Hx of knee surgery History of cataract extraction left eye Family History Paternal Aunt ALS (amyotrophic lateral sclerosis) Paternal Aunt ALS (amyotrophic lateral sclerosis) Paternal Cousin ALS (amyotrophic lateral sclerosis) multiple Social History Smoking/Tobacco Use Status: Former Tobacco Use Quit Date: 08/07/03 Pack-years: 17 Tobacco: How many years used: 17 Smoking risk assessment performed?: Yes Alcohol Intake: current Alcohol Intake frequency: holidays/special occasions only Alcohol type: beer and hard liquor Drug use: Never Substance use type: does not use Household members: spouse Housing: house 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
[2023-09-16 23:57] LABS: Bilirubin Negative (Negative); Blood Trace-intact (Negative); Clarity Clear (Clear); Glucose >=1000 mg/dL (Negative); Ketones 80 mg/dL (Negative); Leukocyte Esterase Negative (Negative); Nitrite Negative (Negative); Specific Gravity <= 1.005 (1.005-1.025); Urobilinogen 0.2 mg/dL (Up to 0.2); pH 5.5 (5-8)
[2023-09-17] VITALS (8 sets, daily range): BP systolic 126–164; BP diastolic 62–81; PULSE 62–89; RESP 14–17; TEMP 36.2–37.9; O2SAT 93–95
[2023-09-17] MEDS: metroNIDAZOLE 500 MG/100 ML BAG 100 MG IVPB ×2 (00:02→08:30)
[2023-09-17 00:06] LABS: Bacteria Rare HPF (Negative); C & S Indicated? No; Crystals Negative HPF (Negative); Epithelial Cells Rare HPF (Negative); Mucus Negative (Negative); RBC 0-2 HPF (0-2)
[2023-09-17 00:53] LABS: Troponin I < 50 ng/L (< or =60)
--- NOTE | 2023-09-17 01:30 | W.PM.HP.N ---
Date of service: 09/17/23 Time of Service: 01:30 Assessment and Plan Assessment and plan (1) Enterocolitis: Status: Acute Assessment and plan: continue iv fluids (LR), antiemetics, full liquid diet, advance as tolerated; check stool cultures, continue flagyl, change CTRX to Cipro (2) Nausea & vomiting: Status: Acute Assessment and plan: no hematochezia or hematemesis; continue protonix IV, trial of full liquid diet, give compazine prn Qualifiers: Vomiting type: bilious vomiting Qualified Code(s): R11.14 - Bilious vomiting (3) GERD (gastroesophageal reflux disease): Status: Chronic Assessment and plan: patient has thickening of distal esophagus; he needs outpatient EGD, will consult Dr. Hudson to follow up w/ him as patient needs scoped to r/o Rudd's esophagitis or cancer. Qualifiers: Esophagitis presence: esophagitis presence not specified Qualified Code(s): K21.9 - Gastro-esophageal reflux disease without esophagitis (4) Asthma: Status: Chronic Assessment and plan: continue inhalers including Symbicort and prn albuterol; not currently in a flare up Qualifiers: Asthma severity: mild Asthma persistence: intermittent Asthma complication type: uncomplicated Qualified Code(s): J45.20 - Mild intermittent asthma, uncomplicated (5) Diabetes mellitus type 2, controlled, without complications: Status: Acute Assessment and plan: monitor glucose ac/hs, I did ask nursing to monitor q4hr thru the night as his glucose is relatively low; I was concerned for possible non-hyperglycemic ketoacidosis as his AG was mildly elevated and he had ketones in his urine but repeat BMP the A.G. was normal at 9 and VBG did not show acidosis. Qualifiers: Diabetes mellitus penitentiary insulin use: without penitentiary use Qualified Code(s): E11.9 - Type 2 diabetes mellitus without complications History of Present Illness History of Present Illness Chief Complaint: vomiting, diarrhea Narrative: 68 yr old male w/ PMH of asthma, nasal polyps (on Dupixent), type II DM on Jardiance, glipizide, GERD (on omeprazole and carafate and pepcid) who presented to the urgent care two days ago and to the ED yesterday (09/14) due to nausea and protracted vomiting. Symptoms of nausea and intermittent vomiting began about one week ago and he attributed this to a viral gastroenteritis. However for past two days he has had protracted vomting. He states that in the past day he has vomited 10 x. No hematemesis and no hematochezia or melena. He thought his GERD was acting up so he was taking his pepcid and carafate and omeprazole. At the time of his E.D. visit on 09/14 he denied any abdominal pain or diarrhea, fevers or dysuria. He was treated w/ antiemetics, routine labs including UA were done. His glucose was 153 w/ normal AG, normal CBC, and UA that was abnormal w/ cloudy >160 mg/dL ketones, >50 WBC/HPF, w/ few epithelial cells and many bacteria and glucose of 500 mg/dL. He was diagnosed w/ UTI although he denies any dysuria or hematuria. His nauseas was treated w/ zofran and he was dc home on macrodantin, zofran and his omeprazole was changed to esomeprazole and his pepcid and carafate were continued. Even though he has had GERD for years, he has never had an EGD. He was referred to Dr. John Hudson for follow up EGD and follow up w/ his PCP. However, today he developed ongoing vomiting and now has had two bouts of diarhear, watery stools, again, no melena or hematochezia and crampy abdominal pains. Workup in the ED included CT abdomen/pelvis which showed diffuse bowel wall thickening/edema of entire colon (ascending, transverse, descending and sigmoid) along w/ adjacent mesenteric inflammatory changes, and fluid filled loops of smal bowel w/ air fluid levels but no obstruction. He also has fatty liver changes but no gall stones or biliary dilatation. Normal spleen and pancreas. Distal esophagus has wall thickening consistent w/ his diagnosis of GERD (however this still needs endoscopic evaluation). Labs were remarkable for normal CBC, glucose 97, AG 12, normal LFT and lipase and troponin I x 2. UA today shows 80 mg/dL ketones, negative nitrites, negative leukocyte esterase, 0-2 RBC, 3-5 wbc, rare epithelial cells and rare bacteria but >1000 mg/dL glucose. The hospitalist service was asked to admit the patient for enterocolitis, for iv hydration and antiemetics and for treatment of his UTI. I do not feel that he has a UTI although his urine culture from yesterday is growing >100,000 GPC, but given his negative repeat UA and he did not keep down any of his macrodantin and has no sx referrable to UTI. However, he does have symptoms of a enterocolitis for which infectious cause has not been excluded. He was treated w/ Ceftriaxone in the E.D. I recommended that flagyl be added for his colitis, while we get stool bacterial antigens and C diff. This may just be a viral enterocolitis. Review of Systems All systems reviewed & are unremarkable except as noted in HPI and below Gastrointestinal Gastrointestinal: Reports as per HPI PFS All Active Problems (Updated 09/17/23 @ 03:05 by Gumaro Fleming MD) Enterocolitis (Acute) Nausea & vomiting (Acute) Acute UTI (Acute) Adenomatous polyps (Acute) Nasal polyp (Acute) Allergic rhinitis (Acute) Restless leg syndrome (Chronic) DVT prophylaxis (Acute) Muscle twitching (Acute) GERD (gastroesophageal reflux disease) (Chronic) Asthma (Chronic) Diabetes mellitus type 2, controlled, without complications (Acute) History of colonic polyps (Chronic) 08/29/18 Dr Monique Matias, tubular adenoma x 4, repeat 3 years. Medical History Non-insulin dependent type 2 diabetes mellitus poorly controlled with recent HgbA1c of 11.[address] Ruiz's colo referral dated 07/21/18. mg Depression with anxiety pt. states he no longer has this condition Overweight Tubular adenoma of colon Compulsive disorder pt. states he does not have this condition Asthma Seasonal allergies GERD (gastroesophageal reflux disease) BPH (benign prostatic hyperplasia) Surgical History History of nasal polypectomy Hx of colonoscopy (~01/2023) Hx of knee surgery History of cataract extraction left eye Family History Paternal Aunt ALS (amyotrophic lateral sclerosis) Paternal Aunt ALS (amyotrophic lateral sclerosis) Paternal Cousin ALS (amyotrophic lateral sclerosis) multiple Social History Smoking/Tobacco Use Status: Former Tobacco Use Quit Date: 08/07/03 Pack-years: 17 Tobacco: How many years used: 17 Smoking risk assessment performed?: Yes Alcohol Intake: current Alcohol Intake frequency: holidays/special occasions only Alcohol type: beer and hard liquor Drug use: Never Substance use type: does not use Household members: spouse Housing: house 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 Do you feel safe at home: Yes Do you feel safe in your relationship?: Yes Meds Allergies and Home Medications Allergies Allergy/AdvReac Type Severity Reaction Status Date / Time liraglutide [From Victoza] Allergy Intermediate Severe Verified 09/16/23 20:21 diarrhea metformin AdvReac Mild Other (See Verified 09/16/23 20:21 Comment) ibuprofen AdvReac Unknown Other (See Unverified 09/16/23 20:21 Comment) Home Medications Medication Instructions Recorded Confirmed Type omeprazole magnesium 20 mg 20 mg PO DAILY 06/08/12 09/16/23 History tablet,delayed release (Prilosec OTC) albuterol sulfate 90 mcg/actuation 1 - 2 puff inhalation .Q4-6H PRN 07/25/15 09/16/23 History aerosol inhaler (ProAir HFA) finasteride 1 mg tablet (Propecia) 1 mg PO DAILY 07/25/15 09/16/23 History glimepiride 4 mg tablet 4 mg PO BID 12/17/17 09/16/23 History multivitamin (Daily Multi-Vitamin 1 tab PO DAILY 12/17/17 09/16/23 History tablet) acetaminophen 325 mg tablet 325 - 650 mg (1 - 2 x 325 mg) PO 09/12/18 09/16/23 Rx (Tylenol) Q4H PRN PRN pain #0 tabs budesonide-formoterol HFA 160 2 puff inhalation BID 10/19/22 09/16/23 History mcg-4.5 mcg/actuation aerosol inhaler (Symbicort) empagliflozin 25 mg tablet 25 mg PO DAILY 10/19/22 09/16/23 History (Jardiance) sertraline 50 mg tablet 50 mg PO DAILY 10/19/22 09/16/23 History dupilumab 100 mg/0.67 mL 200 mg subcut Q2W 01/01/23 09/16/23 History subcutaneous syringe (Dupixent) esomeprazole magnesium 20 mg 20 mg PO BID #60 caps 09/15/23 09/16/23 Rx capsule,delayed release famotidine 20 mg tablet 20 mg PO BID 09/15/23 09/16/23 History nitrofurantoin 100 mg PO Q12H #20 caps 09/15/23 09/16/23 Rx monohydrate/macrocrystals 100 mg capsule (Macrobid) ondansetron HCl 4 mg tablet 4 mg PO Q6H PRN #10 tabs 09/15/23 09/16/23 Rx sucralfate 1 gram tablet 1 g PO QID 09/15/23 09/16/23 History Exam Narrative Exam Narrative: Alert and oriented x4 Neck: Supple, nontender, without thyromegaly or lymphadenopathy or JVD. Normal carotid pulses Lungs: Clear to auscultation and percussion Heart: Regular rate and rhythm without murmur rub or gallop. Normal apical impulse Abdomen: Nondistended, normal bowel sounds, nontender to palpation or percussion, no organomegaly, no bruits, no palpable masses Genitalia and rectal exam: Deferred Extremities: Normal range of motion with normal strength. No peripheral cyanosis or edema. Normal pulses Neurologic: Cranial nerves grossly within normal limits. Normal strength and sensation over the face trunk and extremities. Results Labs 09/16/23 21:28 09/17/23 01:55 Labs: Laboratory Results - last 24 hr 09/16/23 09/16/23 09/17/23 21:28 23:50 00:10 WBC 9.13 RBC 5.45 Hgb 15.6 Hct 47.7 MCV 88 MCH 28.6 MCHC 32.7 RDW 12.3 Plt Count 305 MPV 9.2 Immature Gran % 0.4 Neutrophils % 67.2 Lymphocytes % 17.3 Monocytes % 6.8 Eosinophils % 7.9 Basophils % 0.4 Nucleated RBC % 0.0 Absolute Neutrophils 6.13 Absolute Lymphocytes 1.58 Absolute Monocytes 0.62 Absolute Eosinophils 0.72 H Absolute Basophils 0.04 VBG Lactate 0.8 Sodium 136 Potassium 3.7 Chloride 99 Carbon Dioxide 24.9 Anion Gap 12.1 H BUN 14 Creatinine 0.8 Est GFR (CKD-EPI 2020) 97.00 Glucose 78 Calcium 8.8 Magnesium 2.0 Total Bilirubin 0.5 AST 20 ALT 35 Alkaline Phosphatase 82 Troponin I < 50 < 50 Total Protein 7.9 Albumin 3.8 Lipase 30 Urine Color Yellow Urine Clarity Clear Urine pH 5.5 Ur Specific [place] <= 1.005 Urine Protein Negative Urine Ketones 80 H Urine Blood Trace-intact H Urine Nitrite Negative Urine Bilirubin Negative Urine Urobilinogen 0.2 Ur Leukocyte Esterase Negative Urine RBC 0-2 Urine WBC 3-5 Ur Epithelial Cells Rare Urine Crystals Negative Urine Bacteria Rare Urine Mucus Negative Ur Culture Indicated? No Urine Glucose >=1000 H Last Vital Signs Temp 36.7 C 09/17/23 00:59 Pulse 65 09/17/23 00:59 Resp 16 09/17/23 00:59 BP 144/76 H 09/17/23 00:59 Pulse Ox 95 09/17/23 00:59 Time Spent Time spent with Patient: 55-74 minutes Time was spent: preparing to see the patient(eg.review tests), ordering medications,tests, procedures, referring, communicating with other health pediatric critical care nurse (ron/ Pam Torres), indepentently interpreting results, counseling the patient and care coordination
[2023-09-17 02:01] LABS: BE (Venous) -1 mmol/L (-2-3); HCO3 (Venous) 24 mmol/L (23-28); O2 Sat (Venous) 68 %; TCO2 (Venous) 22 mmol/L (24-29); pCO2 (Venous) 43 mmHg (41-51); pH (Venous) 7.36 (7.31-7.41); pO2 (Venous) 35 mmHg
[2023-09-17 02:13] LABS: Anion Gap 9.1 mmol/L (3-11); BUN 13 mg/dL (7-18); CO2 25.9 mmol/L (21.0-32.0); CREATININE 0.7 mg/dL (0.70-1.30); Calcium 8.2 mg/dL (8.5-10.1); Chloride 100 mmol/L (98-107); Estimated GFR 100.99 (mL/min/1.73m2); Glucose 69 mg/dL (74-106); Potassium 3.7 mmol/L (3.5-5.1); Sodium 135 mmol/L (136-145)
[2023-09-17] MEDS: CIPROFLOXACIN 400 MG/200 ML BAG 200 MG IVPB (02:24)
[2023-09-17] MEDS: Prochlorperazine 10 MG/2 ML VIAL 5 MG IVP ×2 (04:29→16:59)
[2023-09-17] MEDS: Normal Saline Flush 10 ML SYR IVP ×3 (04:30→17:00)
[2023-09-17] MEDS: Lactated Ringers 1,000 ML 100 ML IV (04:37)
[2023-09-17] MEDS: Nystatin 500000 UNITS/5 ML SUSP 5ML CUP PO ×4 (06:44→21:38)
[2023-09-17 07:02] LABS: Abs Immature Grans 0.03 10^3/uL (0.0-0.06); Absolute Basophil Count 0.01 10^3/uL (0.0-0.2); Absolute Eosinophil Count 0.56 10^3/uL (0.0-0.7); Absolute Lymphocyte Count 1.22 10^3/uL (1.2-3.4); Absolute Monocyte Count 0.43 10^3/uL (0.1-0.8); Absolute Neutrophil Count 3.79 10^3/uL (1.2-6.7); Basophils % 0.2 %; Eosinophils % 9.3 %; HCT 40.5 % (40.0-50.0); HGB 13.7 g/dL (13.5-17.5); Immature Grans % 0.5 %; Lymphocytes % 20.2 %; MCH 29.1 pg (27.0-33.0); MCHC 33.8 % (32.0-36.0); MCV 86 fL (80-95); MPV 9.8 fL (8.0-11.0); Monocytes % 7.1 %; Neutrophils % 62.7 %; Platelet Count 249 10^3/uL (130-400); RBC 4.71 10^6/uL (4.36-5.78); RDW 12.4 % (11.8-14.1); RDW-SD 39.1 fL; WBC 6.04 10^3/uL (4.4-10.8)
[2023-09-17 07:30] LABS: ALT 29 U/L (16-63); AST 16 U/L (15-37); Alkaline Phosphatase 66 U/L (46-116); Anion Gap 12.5 mmol/L (3-11); BUN 10 mg/dL (7-18); Bilirubin, Total 0.5 mg/dL (0.2-1.0); CO2 23.5 mmol/L (21.0-32.0); CREATININE 0.6 mg/dL (0.70-1.30); Calcium 8.2 mg/dL (8.5-10.1); Chloride 102 mmol/L (98-107); Glucose 143 mg/dL (74-106); Magnesium 1.8 mg/dL (1.8-2.4); Potassium 3.5 mmol/L (3.5-5.1); Sodium 138 mmol/L (136-145); Total Protein 6.3 g/dL (6.4-8.2)
--- NOTE | 2023-09-17 08:18 | PDOC.CMIN ---
Date of service: 09/17/23 Time of Service: 08:18 Care Management Initial Assmt Initial Assessment Reason for Hospitalization: Colitis, diarrhea Functional Status/Living Situation Patient Presentation: Umair is awake and visiting with his when CM met with him. He is pleasant and easily engages on conversation for the purpose if this interview. He expresses his gratatude for the care he's received during his admission. Town of Residence: [place] Resides with: Spouse (Marcy) Significant Other/Family: Local Natural Supports: Daughter Italia lives in [place] Son Aric lives in [place] Both are very supportive Employment Status: Employed ([employer]) Instrumental Activities of Daily Living (ADLs): Independent Medications Medication Management: No Issues/Barriers identified Physical Functioning/Mobility Assistive Device: None Advance Directives Advance Directives: Do you have an Advance Directive: Y 10/25/14 10:50 AD On File at [facility]: Y 07/19/15 15:06 Date Asked AD Date Reviewed 09/17/23 09/17/23 00:41 COLST On File at [facility] COLST Date Scanned Code Status Resuscitation Status Full Code Portal Pt does not currently have a portal and education provided: Yes Insurance Coverage/Financial Issues Insurance: Medicare Accendo MCR ACO Member: No Financial Issues: None identified Care Team Visit Care Team Role Provider Type Gautam Whitaker MD Primary Care Provider NON-[facility] STAFF PHYSICIAN SIMI Saez Emergency Provider [employer] RECEIVABLE Gumaro Fleming MD Admit Provider [facility] STAFF PHYSICIAN Attending Provider Discharge Potential Discharge Needs: Imaging/labs and PCP F/U Appt Anticipated Barriers to Discharge: None Identified Patient/Family Education Needs: Review discharge instructions, discuss Ask Me Three Transportation: Private vehicle Plan: Anticipate Umair will discharge home via private vehicle with his when medically ready. Pt will follow up with community providers and his discharge plan of care as instructed. No new services are anticipated at this time. CM will follow and support discharge planning needs. PFSH All Active Problems (Updated 09/17/23 @ 03:05 by Gumaro Fleming MD) Enterocolitis (Acute) Nausea & vomiting (Acute) Acute UTI (Acute) Adenomatous polyps (Acute) Nasal polyp (Acute) Allergic rhinitis (Acute) Restless leg syndrome (Chronic) DVT prophylaxis (Acute) Muscle twitching (Acute) GERD (gastroesophageal reflux disease) (Chronic) Asthma (Chronic) Diabetes mellitus type 2, controlled, without complications (Acute) History of colonic polyps (Chronic) 08/29/18 Dr Monique Matias, tubular adenoma x 4, repeat 3 years. Medical History Non-insulin dependent type 2 diabetes mellitus poorly controlled with recent HgbA1c of 11.[address] Ruiz's colo referral dated 07/21/18. mg Depression with anxiety pt. states he no longer has this condition Overweight Tubular adenoma of colon Compulsive disorder pt. states he does not have this condition Asthma Seasonal allergies GERD (gastroesophageal reflux disease) BPH (benign prostatic hyperplasia) Surgical History History of nasal polypectomy Hx of colonoscopy (~01/2023) Hx of knee surgery History of cataract extraction left eye Family History Paternal Aunt ALS (amyotrophic lateral sclerosis) Paternal Aunt ALS (amyotrophic lateral sclerosis) Paternal Cousin ALS (amyotrophic lateral sclerosis) multiple Social History Smoking/Tobacco Use Status: Former Tobacco Use Quit Date: 08/07/03 Pack-years: 17 Tobacco: How many years used: 17 Smoking risk assessment performed?: Yes Alcohol Intake: current Alcohol Intake frequency: holidays/special occasions only Alcohol type: beer and hard liquor Drug use: Never Substance use type: does not use Household members: spouse Housing: house current occupation: [employer] Do you feel safe at home: Yes Do you feel safe in your relationship?: Yes SDOH(Care Management) Screening Will the Patient Participate in the Screening?: Yes Do you worry about having a steady place to live?: no Problems where you live: no known problems In the past 12 months, have you had to go without electric, gas, oil or water in your home?: no Have you or anyone in your house had to go without enough food to eat?: no Has lack of transportation kept you from medical appointments or from doing things needed for daily living?: no Has anyone in your support network made you feel unsafe for any reason?: no
[2023-09-17 08:24] LABS: C Diff PCR Negative (Negative)
[2023-09-17] MEDS: Sertraline 50 MG TAB PO (08:29)
[2023-09-17] MEDS: Pantoprazole 40 MG VIAL IVP ×2 (08:29→21:37)
[2023-09-17] MEDS: Enoxaparin 40 MG/0.4 ML SYR SC (08:29)
[2023-09-17] MEDS: Sucralfate 1 GM TAB PO ×4 (08:29→21:38)
[2023-09-17] MEDS: Normal Saline 10 ML VIAL (08:30)
[2023-09-17] MEDS: Budesonide/Formoterol 160/4.5 6 GM 60 PUFF INH IH ×2 (09:08→21:37)
--- NOTE | 2023-09-17 11:37 | NUR.NOTE ---
Accessed Pt chart to obtain the name of antibiotics prescribed to Pt for the Specimen Report
[2023-09-17] MEDS: AMPICILLIN/SULBACTAM 3 GM in Normal Saline 100 ML IVPB ×2 (12:15→22:08)
--- NOTE | 2023-09-17 16:05 | CHAPLAIN ---
Umair was resting in bed when I visited. He listed as being a part of [employer], but he said he is not a practicing Mosque. He was visiting with his Marcy. Marcy's sister is Savanna Nava, who was a Chronic Lost Charge Card Clerk at [employer] for many years, so Marcy mentioned that I might know her. I explained my role and offered support.
--- NOTE | 2023-09-17 16:23 | PGE_ITS ---
Date of Service Date of service: 09/17/23 Time of Service: 16:23 Assessment and Plan Assessment and plan (1) Enterocolitis: Status: Acute Assessment and plan: continue iv fluids (LR), antiemetics, full liquid diet, advance as tolerated; stool cultures pending Change abx to Unasyn - urine + group B strep (2) Nausea & vomiting: Status: Acute Assessment and plan: Continue protonix IV, trial of full liquid diet, give compazine prn nausea/vomiting Qualifiers: Vomiting type: bilious vomiting Qualified Code(s): R11.14 - Bilious vomiting (3) GERD (gastroesophageal reflux disease): Status: Chronic Assessment and plan: patient has thickening of distal esophagus; he needs outpatient EGD, will consult Dr. Hudson to follow up w/ him as patient needs scoped to r/o Rudd's esophagitis or cancer. Qualifiers: Esophagitis presence: esophagitis presence not specified Qualified Code(s): K21.9 - Gastro-esophageal reflux disease without esophagitis (4) Asthma: Status: Chronic Assessment and plan: continue inhalers including Symbicort and prn albuterol; not currently in a flare up Qualifiers: Asthma severity: mild Asthma persistence: intermittent Asthma complication type: uncomplicated Qualified Code(s): J45.20 - Mild intermittent asthma, uncomplicated (5) Diabetes mellitus type 2, controlled, without complications: Status: Acute Assessment and plan: monitor glucose ac/hs, Qualifiers: Diabetes mellitus long-term insulin use: without long-term use Qualified Code(s): E11.9 - Type 2 diabetes mellitus without complications Subjective Subjective Patient reports: no new complaints, feels better, voiding w/o difficulty and bowel movement; denies diarrhea, nausea, vomiting or shortness of breath Exam Narrative Exam Narrative: Alert and oriented x4 Neck: Supple, nontender, without thyromegaly or lymphadenopathy or JVD. Normal carotid pulses Lungs: Clear to auscultation Heart: Regular rate and rhythm without murmur rub or gallop Abdomen: Nondistended, normal bowel sounds, nontender to palpation, no organomegaly, no bruits, no palpable masses Genitalia and rectal exam: Deferred Extremities: Normal range of motion with normal strength. No peripheral cyanosis or edema. Normal pulses Neurologic: Cranial nerves grossly within normal limits. Normal strength and sensation over the face trunk and extremities. Objective Last Vital Signs Temp 37.9 C H 09/17/23 15:10 Pulse 66 09/17/23 15:10 Resp 17 09/17/23 15:10 BP 164/81 H 09/17/23 15:10 Pulse Ox 95 09/17/23 15:10 Laboratory Results - last 24 hr 09/16/23 09/16/23 09/17/23 21:28 23:50 00:10 WBC 9.13 RBC 5.45 Hgb 15.6 Hct 47.7 MCV 88 MCH 28.6 MCHC 32.7 RDW 12.3 Plt Count 305 MPV 9.2 Immature Gran % 0.4 Neutrophils % 67.2 Lymphocytes % 17.3 Monocytes % 6.8 Eosinophils % 7.9 Basophils % 0.4 Nucleated RBC % 0.0 Absolute Neutrophils 6.13 Absolute Lymphocytes 1.58 Absolute Monocytes 0.62 Absolute Eosinophils 0.72 H Absolute Basophils 0.04 VBG pH VBG pCO2 VBG pO2 VBG HCO3 VBG Total CO2 VBG O2 Saturation VBG Base Excess VBG Lactate 0.8 Sodium 136 Potassium 3.7 Chloride 99 Carbon Dioxide 24.9 Anion Gap 12.1 H BUN 14 Creatinine 0.8 Est GFR (CKD-EPI 2020) 97.00 Glucose 78 Calcium 8.8 Magnesium 2.0 Total Bilirubin 0.5 AST 20 ALT 35 Alkaline Phosphatase 82 Troponin I < 50 < 50 Total Protein 7.9 Albumin 3.8 Lipase 30 Urine Color Yellow Urine Clarity Clear Urine pH 5.5 Ur Specific [place] <= 1.005 Urine Protein Negative Urine Ketones 80 H Urine Blood Trace-intact H Urine Nitrite Negative Urine Bilirubin Negative Urine Urobilinogen 0.2 Ur Leukocyte Esterase Negative Urine RBC 0-2 Urine WBC 3-5 Ur Epithelial Cells Rare Urine Crystals Negative Urine Bacteria Rare Urine Mucus Negative Ur Culture Indicated? No Urine Glucose >=1000 H Stl C.difficile Tox PCR 09/17/23 09/17/23 09/17/23 01:55 05:45 06:11 WBC 6.04 RBC 4.71 Hgb 13.7 Hct 40.5 MCV 86 MCH 29.1 MCHC 33.8 RDW 12.4 Plt Count 249 MPV 9.8 Immature Gran % 0.5 Neutrophils % 62.7 Lymphocytes % 20.2 Monocytes % 7.1 Eosinophils % 9.3 Basophils % 0.2 Nucleated RBC % 0.0 Absolute Neutrophils 3.79 Absolute Lymphocytes 1.22 Absolute Monocytes 0.43 Absolute Eosinophils 0.56 Absolute Basophils 0.01 VBG pH 7.36 VBG pCO2 43 VBG pO2 35 VBG HCO3 24 VBG Total CO2 22 L VBG O2 Saturation 68 VBG Base Excess -1 VBG Lactate Sodium 135 L 138 Potassium 3.7 3.5 Chloride 100 102 Carbon Dioxide 25.9 23.5 Anion Gap 9.1 12.5 H BUN 13 10 Creatinine 0.7 0.6 L Est GFR (CKD-EPI 2020) 100.99 105.80 Glucose 69 L 143 H Calcium 8.2 L 8.2 L Magnesium 1.8 Total Bilirubin 0.5 AST 16 ALT 29 Alkaline Phosphatase 66 Troponin I Total Protein 6.3 L Albumin 3.0 L Lipase Urine Color Urine Clarity Urine pH Ur Specific [place] Urine Protein Urine Ketones Urine Blood Urine Nitrite Urine Bilirubin Urine Urobilinogen Ur Leukocyte Esterase Urine RBC Urine WBC Ur Epithelial Cells Urine Crystals Urine Bacteria Urine Mucus Ur Culture Indicated? Urine Glucose Stl C.difficile Tox PCR Negative PAWSS Have you Been Recently Intoxicated or Drunk Within the Last 30 days?: No Have you Ever Experienced Previous Episodes of Alcohol Withdrawal?: No Have you ever Experienced Withdrawal Seizures?: No Have you ever Experienced Delirium Tremens(DT)s?: No Have you ever undergone Alcohol Rehabilitation Treatment (i.e, inpt ot outpatient treatment programs)?: No Have you ever Experienced Blackouts?: No Have you ever Combined Alcohol with other Downers within the last 90 days?: No Have you ever Combined Alcohol with any other Substance of Abuse during the last 90 days?: No Positive Blood Alcohol level on Presentation? [PCS.BAL]: No Evidence of Increased Autonomic Activity (i.e. HR>120, tremor, sweating, agitation, nausea)?: No Result: 0 Time Spent with Patient Time Spent with Patient: 25-34 minutes Time was spent: preparing to see the patient(eg.review tests), ordering medications,tests, procedures, referring, communicating with other health attending ambulatory care, indepentently interpreting results, counseling the patient and care coordination
[2023-09-17] MEDS: Acetaminophen 325 MG TAB PO (17:00)
[2023-09-17] MEDS: Melatonin 3 MG TAB 6 MG PO (23:21)
[2023-09-17 23:46] LABS: Campylobacter PCR Negative (Negative); Salmonella PCR Negative (Negative); Shiga Toxin PCR Negative (Negative); Shigella/Enteroinvasive Ecoli Negative (Negative)
[2023-09-18 02:59] VITALS: BP 130/76; PULSE 73; RESP 16; TEMP 37.3; O2SAT 96
[2023-09-18] MEDS: AMPICILLIN/SULBACTAM 3 GM in Normal Saline 100 ML IVPB ×4 (04:13→22:57)
[2023-09-18] MEDS: Nystatin 500000 UNITS/5 ML SUSP 5ML CUP PO ×4 (05:38→20:48)
[2023-09-18 06:27] LABS: Abs Immature Grans 0.02 10^3/uL (0.0-0.06); Absolute Basophil Count 0.03 10^3/uL (0.0-0.2); Absolute Eosinophil Count 0.84 10^3/uL (0.0-0.7); Absolute Lymphocyte Count 1.23 10^3/uL (1.2-3.4); Absolute Monocyte Count 0.48 10^3/uL (0.1-0.8); Absolute Neutrophil Count 3.98 10^3/uL (1.2-6.7); Basophils % 0.5 %; Eosinophils % 12.8 %; HCT 44.7 % (40.0-50.0); HGB 14.5 g/dL (13.5-17.5); Immature Grans % 0.3 %; Lymphocytes % 18.7 %; MCH 28.2 pg (27.0-33.0); MCHC 32.4 % (32.0-36.0); MCV 87 fL (80-95); MPV 9.7 fL (8.0-11.0); Monocytes % 7.3 %; Neutrophils % 60.4 %; Platelet Count 253 10^3/uL (130-400); RBC 5.14 10^6/uL (4.36-5.78); RDW 12.3 % (11.8-14.1); RDW-SD 39.3 fL; WBC 6.58 10^3/uL (4.4-10.8)
[2023-09-18 06:37] LABS: Anion Gap 15.4 mmol/L (3-11); BUN 9 mg/dL (7-18); CO2 20.6 mmol/L (21.0-32.0); CREATININE 0.7 mg/dL (0.70-1.30); Calcium 8.7 mg/dL (8.5-10.1); Chloride 99 mmol/L (98-107); Estimated GFR 100.99 (mL/min/1.73m2); Glucose 182 mg/dL (74-106); Magnesium 1.7 mg/dL (1.8-2.4); Potassium 3.6 mmol/L (3.5-5.1); Sodium 135 mmol/L (136-145)
[2023-09-18 07:16] VITALS: BP 131/78; PULSE 72; RESP 17; TEMP 36.9; O2SAT 95
[2023-09-18] MEDS: Enoxaparin 40 MG/0.4 ML SYR SC (07:57)
[2023-09-18] MEDS: Sucralfate 1 GM TAB PO ×4 (07:58→20:47)
[2023-09-18] MEDS: Sertraline 50 MG TAB PO (07:58)
[2023-09-18] MEDS: Budesonide/Formoterol 160/4.5 6 GM 60 PUFF INH IH ×2 (08:14→19:24)
--- NOTE | 2023-09-18 09:20 | W.PM.PROGNOT ---
Date of Service Date of service: 09/18/23 Time of Service: 10:45 Assessment and Plan Assessment and plan (1) Enterocolitis: Status: Acute Assessment and plan: continue iv fluids (NS ), antiemetics, full liquid diet, advance as tolerated;education on bowel irritants stool cultures negative Giardia, crystosporidium, parasite ppending Lactoferrin detection and calprotectin pending procal negative on admit & no leukocytosis Stool Lopez virus pending No growth in blood C&S Was on Flagyl, stool PCR pathogens was negative Abx change to Unasyn - urine + group B strep (2) Acute UTI: Status: Acute Assessment and plan: As above (3) Nausea & vomiting: Status: Acute Assessment and plan: On IV protonix, trial of full liquid diet, continue compazine prn nausea/vomiting PRN simethicone Qualifiers: Vomiting type: bilious vomiting Qualified Code(s): R11.14 - Bilious vomiting (4) GERD (gastroesophageal reflux disease): Status: Chronic Assessment and plan: Thickening of distal esophagus. EGD for 10/24/2023 as per patient If no validation for appointment, consult Dr. Hudson to follow up w/ him as patient needs scoped to r/o Rudd's esophagitis or cancer Qualifiers: Esophagitis presence: esophagitis presence not specified Qualified Code(s): K21.9 - Gastro-esophageal reflux disease without esophagitis (5) Asthma: Status: Chronic Assessment and plan: Continue inhalers including Symbicort and prn albuterol Asymptomatic at this time Qualifiers: Asthma complication type: uncomplicated Asthma persistence: intermittent Asthma severity: mild Qualified Code(s): J45.20 - Mild intermittent asthma, uncomplicated (6) Diabetes mellitus type 2, controlled, without complications: Status: Acute Assessment and plan: Monitor glucose ac/hs, and SSI coverage Qualifiers: 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 Everett Subjective Subjective Patient reports: feels better, tolerating liquids well, tolerating a regular diet (decreased PO intake ), voiding w/o difficulty, flatus, diarrhea, nausea and afebrile (less than 24 hours ago ); denies vomiting or shortness of breath Exam Narrative Exam Narrative: Neuro:alert and oriented to self, person, place time and situation. No neurological focal deficit Resp: Normal respiratory pattern, speaks in full sentences, unlabored breathing, clear lung bilaterally Cardio: regular rhythm, S1, S2, no murmur, capillary refill<3 sec., bilateral radial and dorsalis pedis pulses are positive GI: Abdomen is distende but soft and non tender, bowel sounds are present : Negative Costovertebral angle tenderness, no bladder distension Back/spine/Pelvis: No back tenderness, normal alignment Integumentary: No skin lesions or rash Extremities: strength 5/5 to bilateral lower and upper extremities Psych: RASS 0, congruent mood and normal affect. Objective Last Vital Signs Temp 36.9 C 09/18/23 07:16 Pulse 72 09/18/23 07:16 Resp 17 09/18/23 07:16 BP 131/78 09/18/23 07:16 Pulse Ox 95 09/18/23 07:16 Laboratory Results - last 24 hr 09/17/23 09/18/23 05:45 05:48 WBC 6.58 RBC 5.14 Hgb 14.5 Hct 44.7 MCV 87 MCH 28.2 MCHC 32.4 RDW 12.3 Plt Count 253 MPV 9.7 Immature Gran % 0.3 Neutrophils % 60.4 Lymphocytes % 18.7 Monocytes % 7.3 Eosinophils % 12.8 Basophils % 0.5 Nucleated RBC % 0.0 Absolute Neutrophils 3.98 Absolute Lymphocytes 1.23 Absolute Monocytes 0.48 Absolute Eosinophils 0.84 H Absolute Basophils 0.03 Sodium 135 L Potassium 3.6 Chloride 99 Carbon Dioxide 20.6 L Anion Gap 15.4 H BUN 9 Creatinine 0.7 Est GFR (CKD-EPI 2020) 100.99 Glucose 182 H Calcium 8.7 Magnesium 1.7 L Stool Campylobacter PCR Negative Stool Salmonella PCR Negative Stool Shigella PCR Negative Shiga Toxin (PCR) Negative PAWSS Have you Been Recently Intoxicated or Drunk Within the Last 30 days?: No Have you Ever Experienced Previous Episodes of Alcohol Withdrawal?: No Have you ever Experienced Withdrawal Seizures?: No Have you ever Experienced Delirium Tremens(DT)s?: No Have you ever undergone Alcohol Rehabilitation Treatment (i.e, inpt ot outpatient treatment programs)?: No Have you ever Experienced Blackouts?: No Have you ever Combined Alcohol with other Downers within the last 90 days?: No Have you ever Combined Alcohol with any other Substance of Abuse during the last 90 days?: No Positive Blood Alcohol level on Presentation? [PCS.BAL]: No Evidence of Increased Autonomic Activity (i.e. HR>120, tremor, sweating, agitation, nausea)?: No Result: 0 Time Spent with Patient Time Spent with Patient: >50 minutes Time was spent: preparing to see the patient(eg.review tests), obtaining and/or reviewing separately otained hiistory, ordering medications,tests, procedures, referring, communicating with other health district manager primary care sales, indepentently interpreting results, counseling the patient and care coordination
[2023-09-18] MEDS: Pantoprazole 40 MG VIAL IVP ×2 (09:25→20:49)
[2023-09-18] MEDS: Normal Saline Flush 10 ML SYR IVP ×3 (09:26→20:54)
--- NOTE | 2023-09-18 09:33 | CMPROGNOTE_ITS ---
Date of service: 09/18/23 Time of Service: 09:33 Care Management Progress Note Progress Note Text Progress Note Text: S/O: Umair was sitting in a chair visiting with his when CM met with him. Per pt, all his tests have been negative so far and he is planning on discharging home tomorrow on PO abx, if no vomiting. He hasn't vomited or had a fever since last night and is feeling better. A:68 year old male admitted to [facility] on 09/16/23 with Vomiting, colitis, diarrhea Discharge Potential Discharge Needs: Other (Needs outpatient EGD) Anticipated Barriers to Discharge: None Identified Patient/Family Education Needs: Review discharge instructions, discuss Ask Me Three Transportation: Private vehicle Plan: Anticipate Umair will discharge home via private vehicle with his when medically ready. Pt will follow up with community providers and his discharge plan of care as instructed. No new services are anticipated at this time. CM will follow and support discharge planning needs. SDOH(Care Management) Screening Will the Patient Participate in the Screening?: Yes Do you worry about having a steady place to live?: no Problems where you live: no known problems In the past 12 months, have you had to go without electric, gas, oil or water in your home?: no Have you or anyone in your house had to go without enough food to eat?: no Has lack of transportation kept you from medical appointments or from doing things needed for daily living?: no Has anyone in your support network made you feel unsafe for any reason?: no
[2023-09-18 11:21] VITALS: BP 140/73; PULSE 65; RESP 18; TEMP 36.9; O2SAT 96
[2023-09-18] MEDS: Insulin Aspart 300 UNITS/3 ML PEN SC ×2 (11:33→16:45)
[2023-09-18] MEDS: MAGNESIUM SULFATE 2 GM/50 ML BAG IVINF (12:52)
[2023-09-18] MEDS: Normal Saline 1,000 ML 100 ML IV ×2 (14:43→17:43)
[2023-09-18 15:13] VITALS: BP 155/69; PULSE 65; RESP 18; TEMP 37.2; O2SAT 96
[2023-09-18] MEDS: Simethicone 80 MG CHEW PO (17:40)
[2023-09-18 20:46] VITALS: BP 154/67; PULSE 75; RESP 18; TEMP 37.3; O2SAT 96
[2023-09-18] MEDS: Melatonin 3 MG TAB 6 MG PO (20:47)
[2023-09-18] MEDS: Simethicone 80 MG CHEW 40 MG PO (20:48)
[2023-09-18 23:03] VITALS: BP 146/78; PULSE 73; RESP 16; TEMP 36.4; O2SAT 93
[2023-09-19 02:28] VITALS: BP 154/79; PULSE 74; RESP 16; TEMP 36.3; O2SAT 94
[2023-09-19] MEDS: Nystatin 500000 UNITS/5 ML SUSP 5ML CUP PO ×2 (04:06→10:40)
[2023-09-19] MEDS: Normal Saline 1,000 ML 100 ML IV (04:09)
[2023-09-19] MEDS: AMPICILLIN/SULBACTAM 3 GM in Normal Saline 100 ML IVPB ×2 (04:10→10:40)
[2023-09-19 07:15] VITALS: BP 150/83; PULSE 64; RESP 17; TEMP 37.1; O2SAT 95
[2023-09-19] MEDS: Normal Saline Flush 10 ML SYR IVP (08:10)
[2023-09-19] MEDS: Enoxaparin 40 MG/0.4 ML SYR SC (08:10)
[2023-09-19] MEDS: Sucralfate 1 GM TAB PO ×2 (08:10→10:40)
[2023-09-19] MEDS: Insulin Aspart 300 UNITS/3 ML PEN SC ×2 (08:10→12:20)
[2023-09-19] MEDS: Pantoprazole 40 MG VIAL IVP (08:10)
[2023-09-19] MEDS: Sertraline 50 MG TAB PO (08:10)
[2023-09-19] MEDS: Budesonide/Formoterol 160/4.5 6 GM 60 PUFF INH IH (09:18)
[2023-09-19 10:21] LABS: Anion Gap 9.4 mmol/L (3-11); BUN 9 mg/dL (7-18); CO2 28.6 mmol/L (21.0-32.0); CREATININE 0.7 mg/dL (0.70-1.30); Calcium 8.3 mg/dL (8.5-10.1); Chloride 100 mmol/L (98-107); Estimated GFR 100.99 (mL/min/1.73m2); Glucose 209 mg/dL (74-106); Potassium 3.8 mmol/L (3.5-5.1); Sodium 138 mmol/L (136-145)
--- NOTE | 2023-09-19 11:15 | W.PM.DS.N ---
Date of service: 09/19/23 Time of Service: 11:15 DS: Diagnosis Discharge Diagnosis (1) Enterocolitis: Status: Acute (2) Acute UTI: Status: Acute (3) Nausea & vomiting: Status: Acute (4) GERD (gastroesophageal reflux disease): Status: Chronic (5) Asthma: Status: Chronic (6) Diabetes mellitus type 2, controlled, without complications: Status: Acute (7) On deep vein thrombosis (DVT) prophylaxis: Status: Acute (8) Discharge planning issues: Status: Acute Discharge Plan Disposition Patient Disposition: Home Condition: Improving Discharge Details Reason For Visit: colitis, diarrhea, vomiting, UTI Admit Date/Time: 09/16/23 23:47 Admit Provider: Gumaro Fleming Attending Provider: Gumaro Fleming Primary Care Provider: Gautam Whitaker Hospital Course Hospital Course: This is a 68 year old male patient with past medical history asthma, nasal polyps, type II diabetes, and GERD who presented to the urgent care on 09/12 and to the ED 09/14 for evaluation of nausea and protracted vomiting. Symptoms of nausea and intermittent vomiting began about one week prior,, initially attributed to viral gastroenteritis. However, he had experienced protracted vomiting, approximately 10 times the day of admission. No hematemesis, hematochezia, or melena reported. Upon ED evaluation on 09/14, the patient denied abdominal pain, diarrhea, fevers, or dysuria. Treatment included antiemetics and routine labs, revealing an abnormal urinalysis (cloudy, >160 mg/dL ketones, >50 WBC/HPF, few epithelial cells, many bacteria, glucose of 500 mg/dL) suggestive of a urinary tract infection , although the patient denied dysuria or hematuria. He was discharged with zofran, macrodantin, and a change in proton pump inhibitor to esomeprazole, while continuing pepcid and carafate. Follow-up with Dr. John Hudson for an EGD and with his PCP was recommended. The patient developed ongoing vomiting and two episodes of watery diarrhea, accompanied by crampy abdominal pains. CT abdomen/pelvis revealed diffuse bowel wall thickening/edema of the entire colon, adjacent mesenteric inflammatory changes, and fluid-filled loops of small bowel with air-fluid levels, ruling out obstruction. Additionally, fatty liver changes were noted, with a normal spleen and pancreas. Distal esophagus wall thickening consistent with GERD was observed, necessitating endoscopic evaluation. Laboratory Findings: Notable labs included a normal CBC, glucose of 97, normal LFT, lipase, and troponin I x 2. UA positive for ketones, negative nitrites, negative leukocyte esterase, minimal RBCs and WBCs, rare epithelial cells and bacteria, but >1000 mg/dL glucose. Chest xray as read by radiologist: No active cardiopulmonary disease. No acute pulmonary findings.Chronic left lung base findings as described above, unchanged from at least 2019. The patient was admitted for enterocolitis, receiving IV hydration, antiemetics, and treatment for a suspected UTI. However, given negative repeat UA and lack of symptom improvement with macrodantin, a UTI was deemed less likely, suspected viral enterocolitis. Treatment included ceftriaxone initiated in the ED, with the addition of flagyl for colitis, pending stool bacterial antigens and C. diff testing. The patient should adhere to prescribed medications and follow-up appointments as directed. He should maintain hydration and report any worsening symptoms promptly. Take Augmentin twice a day for 8 days. Follow-up with Dr. John Hudson for EGD Home Meds and New Rx's Prescriptions: New amoxicillin-pot clavulanate 875-125 mg tablet 1 tab PO BID Qty: 16 0RF Continued glimepiride 4 mg tablet 4 mg PO BID multivitamin [Daily Multi-Vitamin] tablet 1 tab PO DAILY Dupixent Syringe 100 mg/0.67 mL syringe 200 mg subcut Q2W sertraline 50 mg tablet 50 mg PO DAILY Jardiance 25 mg tablet 25 mg PO DAILY budesonide-formoterol [Symbicort] 160-4.5 mcg/actuation HFA aerosol inhaler 2 puff inhalation BID omeprazole magnesium [Prilosec OTC] 20 MG tablet,delayed release (DR/EC) 20 mg PO DAILY albuterol sulfate [ProAir HFA] 200 PUFF HFA aerosol inhaler 1 - 2 puff Inhalation .Q4-6H PRN finasteride [Propecia] 1 MG tablet 1 mg PO DAILY sucralfate 1 gram tablet 1 g PO QID famotidine 20 mg tablet 20 mg PO BID ondansetron HCl 4 mg tablet 4 mg PO Q6H PRNQty: 10 0RF acetaminophen [Tylenol] 325 mg Tablet 325 - 650 mg PO Q4H PRN PRN (Reason: pain) Qty: 0 0RF Rx Instructions: total dose of acetaminophen cannot exceed 4000 mg (4 grams)/day. This includes acetaminophen in percocet. Discontinued esomeprazole magnesium 20 mg capsule,delayed release(DR/EC) 20 mg PO BID Qty: 60 0RF cephalexin 500 mg tablet 500 mg PO BID 7 Days Qty: 14 0RF Discharge Instructions Instructions: Urinary tract infections in adults, Amoxicillin and Clavulanate Additional Instructions: Take augmentin until completed. Take tylenol for pain or fever. Drink plenty of fluids. Stand Alone Forms: Nursing Discharge Form Referrals: Gautam Whitaker MD [Primary Care Provider] - 10/01/23 3:00 pm () Activity:: Activity as Tolerated Equipment/Supplies:: No Equipment Needed Diet:: As Tolerated Discharge Orders Discharge Orders: Discharge Order (Routine); Ordered 09/19/23 Ordered By: Malika Prasad Discharge Data Discharge Date/Time-TO BE ENTERED AT DEPARTURE: 09/19/23 14:31 DS: Summary Time Spent with Patient providing and/or coordinating discharge services: Greater than 30 minutes Status at Discharge Functional status at discharge: independent ambulation Overall status at discharge: patient is progressing back to baseline Mental Status: mental status grossly normal Speech and Movement: speech and movement normal Mood: congruent mood Affect: normal affect Quality:SDOH Health Related Social Needs: No Data to Display Exam Narrative Exam Narrative: Alert and oriented x4 Neck: Supple, nontender, without thyromegaly or lymphadenopathy or JVD. Normal carotid pulses Lungs: Clear to auscultation Heart: Regular rate and rhythm without murmur rub or gallop Abdomen: Nondistended, normal bowel sounds, nontender to palpation, no organomegaly, no bruits, no palpable masses Genitalia and rectal exam: Deferred Extremities: Normal range of motion with normal strength. No peripheral cyanosis or edema. Normal pulses Neurologic: Cranial nerves grossly within normal limits. Normal strength and sensation over the face trunk and extremities. Psych Mental Status: mental status grossly normal Speech and Movement: speech and movement normal Mood: congruent mood Affect: normal affect DS: Data Vitals/I&O Vitals and I&O: Vital Signs Temperature 37.1 C 09/19/23 07:15 Temperature Source Temporal Artery Scan 09/19/23 07:15 Pulse 64 09/19/23 07:15 Pulse Rhythm Regular 09/19/23 02:35 Pulse 66 09/16/23 21:40 Respiratory Rate 17 09/19/23 07:15 Respiratory Effort Normal 09/19/23 02:35 Respiratory Depth Normal 09/19/23 02:35 Respiratory Pattern Normal 09/19/23 02:35 Blood Pressure 150/83 H 09/19/23 07:15 Blood Pressure Position Sitting 09/16/23 20:28 Pulse Oximetry 95 09/19/23 07:15 Oxygen Delivery Method Room Air 09/19/23 07:15 Oxygen Flow Rate 0 09/19/23 07:15 Pain Level 0 09/19/23 02:28 Intake & Output 09/18/23 09/18/23 09/19/23 11:59 23:59 11:59 Intake Total 500 / 1290 790 / 1290 1110 / 1110 Output Total 250 / 250 Balance 500 / 1290 790 / 1290 860 / 860 Intake: IV 200 / 750 550 / 750 1110 / 1110 Oral 300 / 540 240 / 540 Output: Urine 250 / 250 Other: Urine Color Yellow Pale Light Monica Yellow Urine Appearance Clear Clear Clear Comment patient is voiding independently in the toilet pt reports x3 voids, tonight. i instructed him on urinal usage. pt voids independently in room. Stool Size Small Small Stool Characteristics Liquid Liquid Voiding Methods Toilet Toilet Toilet Data Completed and Pending Labs on day of discharge: Labs from last 24 hours 09/19/23 09/18/23 09/17/23 05:35 20:31 05:45 WBC Pending RBC Pending Hgb Pending Hct Pending MCV Pending MCH Pending MCHC Pending RDW Pending Plt Count Pending MPV Pending Immature Gran % Pending Neutrophils % Pending Lymphocytes % Pending Monocytes % Pending Eosinophils % Pending Basophils % Pending Absolute Neutrophils Pending Absolute Lymphocytes Pending Absolute Monocytes Pending Absolute Eosinophils Pending Absolute Basophils Pending Sodium Pending Potassium Pending Chloride Pending Carbon Dioxide Pending Anion Gap Pending BUN Pending Creatinine Pending Est GFR (CKD-EPI 2020) Pending Glucose Pending Calcium Pending Magnesium Pending Stool Description Not Applicable Stool Calprotectin Pending Stool Ova & Parasites SEE BELOW Cryptosporidium/Giardia Pending Preliminary micro results at discharge 09/16/23 21:47 Blood Culture - Preliminary Blood NO GROWTH 48 HOURS 09/16/23 21:28 Blood Culture - Preliminary Blood NO GROWTH 48 HOURS PFSH All Active Problems (Updated 09/18/23 @ 09:26 by Gill Kee APRN) On deep vein thrombosis (DVT) prophylaxis (Acute) Discharge planning issues (Acute) Enterocolitis (Acute) Nausea & vomiting (Acute) Acute UTI (Acute) Adenomatous polyps (Acute) Nasal polyp (Acute) Allergic rhinitis (Acute) Restless leg syndrome (Chronic) DVT prophylaxis (Acute) Muscle twitching (Acute) GERD (gastroesophageal reflux disease) (Chronic) Asthma (Chronic) Diabetes mellitus type 2, controlled, without complications (Acute) History of colonic polyps (Chronic) 08/29/18 Dr Monique Matias, tubular adenoma x 4, repeat 3 years. Medical History Non-insulin dependent type 2 diabetes mellitus poorly controlled with recent HgbA1c of 11.[address] Ruiz's colo referral dated 07/21/18. mg Depression with anxiety pt. states he no longer has this condition Overweight Tubular adenoma of colon Compulsive disorder pt. states he does not have this condition Asthma Seasonal allergies GERD (gastroesophageal reflux disease) BPH (benign prostatic hyperplasia) Surgical History History of nasal polypectomy Hx of colonoscopy (~01/2023) Hx of knee surgery History of cataract extraction left eye Family History Paternal Aunt ALS (amyotrophic lateral sclerosis) Paternal Aunt ALS (amyotrophic lateral sclerosis) Paternal Cousin ALS (amyotrophic lateral sclerosis) multiple Social History Smoking/Tobacco Use Status: Former Tobacco Use Quit Date: 08/07/03 Pack-years: 17 Tobacco: How many years used: 17 Smoking risk assessment performed?: Yes Alcohol Intake: current Alcohol Intake frequency: holidays/special occasions only Alcohol type: beer and hard liquor Drug use: Never Substance use type: does not use Household members: spouse Housing: house 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
[2023-09-19 11:21] VITALS: BP 136/72; PULSE 71; RESP 18; TEMP 37.1; O2SAT 96
[2023-09-19 11:36] LABS: HCT 44.6 % (40.0-50.0); HGB 14.7 g/dL (13.5-17.5); MCH 28.7 pg (27.0-33.0); MCV 87 fL (80-95); Magnesium 1.9 mg/dL (1.8-2.4); RBC 5.13 10^6/uL (4.36-5.78); WBC 7.33 10^3/uL (4.4-10.8)
[2023-09-19 11:37] LABS: Abs Immature Grans 0.06 10^3/uL (0.0-0.06); Absolute Basophil Count 0.03 10^3/uL (0.0-0.2); Absolute Eosinophil Count 0.77 10^3/uL (0.0-0.7); Absolute Lymphocyte Count 1.08 10^3/uL (1.2-3.4); Absolute Monocyte Count 0.49 10^3/uL (0.1-0.8); Basophils % 0.4 %; Eosinophils % 10.5 %; Immature Grans % 0.8 %; Lymphocytes % 14.7 %; MPV 9.7 fL (8.0-11.0); Monocytes % 6.7 %; Neutrophils % 66.9 %; Platelet Count 271 10^3/uL (130-400); RDW 12.2 % (11.8-14.1); RDW-SD 39.1 fL
--- NOTE | 2023-09-19 14:14 | PDOC.CMDIS ---
Date of service: 09/19/23 Time of Service: 14:14 LACE Index Scoring Tool Questions: Length of Stay (in days): 3 Was the patient admitted via the E.D.?: Yes Comorbidities: Diabetes w/o Complication E.D. Visits: 2 Answers: Total Score: 9 Risk of Readmission: Low Risk Care Management Discharge Plan Reason for Hospitalization: colitis Discharge Plan: Umair will discharge home via private vehicle with his . He will follow up with community providers and his discharge plan of care as instructed. No new services are needed at this time. Patient/Family Education Needs: Review discharge instructions, discuss [facility] Health Related Social Needs: No Data to Display
--- NOTE | 2023-09-19 14:14 | W.NUTRFU ---
Date of service: 09/19/23 Time of Service: 13:00 Nutrition Note NOTE: Pt was admitted for UIT, enterocolitis with with diarrhea. Hx of DMII and takes empagliflozin daily and glimepiride BID. Pt FBG 143-209 over the last 3 mornings. Does not check glucose often at home and not one to carb count -tries to watch the bad stuff. Declined detailed diabetes education today. Did provide some samples of Banatrol for him to try to help manage his loose stools and he did take my card to contact if he feels like he's like some help/guidance with diabetes mgt in the oupt setting Time Spent in Nutritional Counseling and Treatment: 10 minutes
[2023-09-21 18:35] LABS: Norovirus G1 PCR Negative (Negative); Norovirus G2 PCR Negative (Negative)
[2023-09-23 12:26] LABS: Calprotectin 175 mcg/g
== END 2023-09-19 14:31 | disposition home or self-care (01) ==
LOC: ER 09-17 00:44 → MS 09-17 01:09
PROVIDERS: Nurse Practitioner Acute Care; Nurse Practitioner Family; Admitting Provider Internal Medicine; Emergency Provider Physician Assistant; PCP Family Medicine; Visit Provider Internal Medicine
DX: K52.9 Noninfective gastroenteritis and colitis, unspecified (principal); R11.14 Bilious vomiting; K21.9 Gastro-esophageal reflux disease without esophagitis; J45.20 Mild intermittent asthma, uncomplicated; N39.0 Urinary tract infection, site not specified; E11.9 Type 2 diabetes mellitus without complications; Z79.84 Long term (current) use of oral hypoglycemic drugs; Z79.899 Other long term (current) drug therapy; K76.0 Fatty (change of) liver, not elsewhere classified; G25.81 Restless legs syndrome; Z86.010 Personal history of colon polyps; E66.3 Overweight; N40.0 Benign prostatic hyperplasia without lower urinary tract symptoms; B95.1 Streptococcus, group B, as the cause of diseases classified elsewhere; J33.9 Nasal polyp, unspecified
CPT/HCPCS: 00123; 36415; 80048; 80053; 82805; 83690; 87040; 87329; 87493; 87505; 87798; 93005; 94640; 96361; 96365; 96366; 96367; 96372; 96375; 96376; 99285; J1650; 74177; 81003; 81015; 83605; 83630; 83735; 83993; 84484; 85025; 87177; 93010; 94664; 99222; 99233; 99239; G0378; J0295; J0696; J0744; J0780; J1815; J1836; J2470; J3475; J3490

== ENCOUNTER → 2023-10-24 09:21 | Outpatient (BNVA) | payer MEDICARE, SELFPAY | PROVIDERS: PCP Family Medicine; Referring Provider Family Medicine; Visit Provider Surgery | DX: K21.9 Gastro-esophageal reflux disease without esophagitis (principal); R93.3 Abnormal findings on diagnostic imaging of other parts of digestive tract | CPT/HCPCS: 99215 ==

== ENCOUNTER 2023-10-28 09:50 | Day surgery (SDC) | payer MEDICARE, SELFPAY ==
--- NOTE | 2023-10-27 14:06 | PDOC.DSDIS_ITS ---
Date of service: 10/28/23 Time of Service: 11:38 Discharge Plan Disposition Patient Disposition: Home Condition: Good Discharge Details Reason For Visit: EGD Attending Provider: John Hudson Primary Care Provider: Gautam Whitaker Home Meds and New Rx's Prescriptions: Continued glimepiride 4 mg tablet 4 mg PO BID multivitamin [Daily Multi-Vitamin] tablet 1 tab PO DAILY Dupixent Syringe 100 mg/0.67 mL syringe 200 mg subcut Q2W sertraline 50 mg tablet 50 mg PO DAILY omeprazole magnesium [Prilosec OTC] 20 mg tablet,delayed release (DR/EC) 40 mg PO DAILY albuterol sulfate [ProAir HFA] 200 PUFF HFA aerosol inhaler 1 - 2 puff Inhalation .Q4-6H PRN finasteride [Propecia] 1 MG tablet 1 mg PO DAILY acetaminophen [Tylenol] 325 mg Tablet 325 - 650 mg PO Q4H PRN PRN (Reason: pain) Qty: 0 0RF Rx Instructions: total dose of acetaminophen cannot exceed 4000 mg (4 grams)/day. This includes acetaminophen in percocet. Discharge Instructions Additional Instructions: Umair, we were able to complete your EGD today without any difficulty. To the naked eye, all of your esophagus, GE junction, and stomach appeared normal. I did do some biopsies of the GE junction in the area where they saw some thick ening. Will take a week or 2 to get those results, but certainly once I have them I will be in touch with any other recommendations. In the meantime, if you have any questions at all, please do not hesitate to ask. 1. If tolerated, consume a soft, low fiber diet for 1-2 days. 2[address] Do not drive, drink alcohol, operate machinery, make critical decisions, or do activities that require coordination or balance for 24 hours. 3. You may experience a sore throat for 24 to 48 hours. You may use throat lozenges or gargle with warm salt water to relieve the discomfort. 4. Because air was put into your stomach during the procedure, you may experience some belching. 5. Go directly to the emergency room if you notice any of the following: Develop chills (warm to touch), or if you have a thermometer and your temperature is above 101 Difficulty breathing or difficultly swallowing Persistent vomiting Severe abdominal pain, other than gas cramps Severe chest pain Black, tarry stools Any bleeding ? exceeding one tablespoon 6. Call your physician if the site where your intravenous was started becomes red, swollen, painful, and warm to touch. 7. Your physician has reviewed your pre-procedure medications. Please continue to take those medications as previously ordered. You will be given specific information/education regarding any changes to your medications before leaving. Activity:: Activity as Tolerated Diet:: As Tolerated Discharge Orders Discharge Orders: Discharge Order (Routine); Ordered 10/27/23 Ordered By: John Hudson DS: Diagnosis Discharge Diagnosis (1) Abnormal CT scan, esophagus: Status: Acute Asessment and Plan: Normal EGD; follow-up on biopsies
--- NOTE | 2023-10-27 14:10 | W.PM.ENDDOP ---
Date of service: 10/28/23 Time of Service: 11:40 Endoscopy Report DATE OF PROCEDURE: 10/28/23 PRE-OP DIAGNOSIS: Esophagitis POST-OP DIAGNOSIS: other (Normal-appearing EGD) PROCEDURE: EGD with biopsies SURGEON: John Hudson ANESTHESIA TYPE: General:No Airway ESTIMATED BLOOD LOSS: 5 PATHOLOGY: other (Biopsies of GE junction) COMPLICATIONS: None DISPOSITION: same day INDICATIONS: Umair is a 68 year old man who recently underwent CT that demonstrated thickening of the esophagus. He is undergoing diagnostic EGD PROCEDURE START TIME: PROCEDURE END TIME: FINDINGS: Normal-appearing EGD, with normal Z-line and GE junction at 37 cm from the incisors PROCEDURE DESCRIPTION: After the initiation of monitored anesthetic care, and with the assistance of a bite block, I advanced a standard gastroscope through the mouth past the hypopharynx and into the esophagus.? Under the direct vision of the scope, I advanced down the esophagus towards the stomach.? The upper, mid, and lower esophagus all appeared normal. I encountered the Z-line around 37 cm from the incisors. The Z-line was regular. GE junction appeared normal. Narrowband imaging was used to assist with analysis here. Again, there were no obvious signs of any pathology. I advanced down into the stomach and insufflated to the rugae were obliterated. I performed retroflexion. I did not see any signs of hiatal hernia, mass, or any other pathology in the upper portion of the stomach. I turned antegrade, went down around the incisura angularis. This all appeared normal. I then brought the camera back up to the GE junction and examined it once again, as well as the distal esophagus. I did perform random biopsies of the GE junction with cold forceps. There was an appropriate amount of bleeding, but nothing worrisome. There was an appropriate amount of bleeding, but nothing worrisome. I advanced the camera back down into the stomach and emptied it prior to removing the camera along the length of the esophagus 1 last time. Again, no other pathology was appreciated. Finally, I withdrew the scope along the length of the esophagus taking great care to examine the entirety of the mucosa.? I did not appreciate any abnormalities.
[2023-10-28 10:00] VITALS: BP 125/76; PULSE 63; RESP 16; TEMP 36.5; O2SAT 95
[2023-10-28] MEDS: Lactated Ringers 1,000 ML 80 ML IV (10:55)
--- NOTE | 2023-10-28 11:29 | ESO_PTH ---
PATIENT: Umair Valdivia LOC: [facility] U#:[id number] AGE/SX: 68/M ROOM: RE10/28/[address]: John Hudson MD : 1955 BED: DIS: 10/28/2023 SPEC #: [id number] RECD: 10/28/23 12:53 STATUS: BERT COTTON #: [id number] REHANA: 10/28/23 11:[address]: John Hudson DEPT: Surgical Specimen RECD BY: Pam Oconnor ENTERED: 10/28/23 12:54 SP TYPE: Nannetteo SNEHA DR: Gautam Whitaker Tissues: 1 - ESOPHAGUS BIOPSY Procedures: GROSS AND MICRO LEVEL 4 IMMUNOPEROXIDASE STAIN Comments: [id number]
[2023-10-28 11:37] VITALS: BP 109/67; PULSE 69; RESP 16; TEMP 36.4; O2SAT 93
--- NOTE | 2023-10-28 11:59 | ANES.PREOP_ITS ---
General Info Date of Service Date Performed: 10/28/23 Height: 6 ft Weight: 101.4 kg Body Mass Index (BMI): 30.3 Surgical Procedure: Operation Date: 10/28/23 11:20 Proposed Procedure Side Surgeon p Gastroscopy John Hudson MD Actual Procedure Side Surgeon p Gastroscopy w/bx of GE Junction Not Applicable John Hudson MD Pre-Op Diagnosis Post-Op Diagnosis abnormal ct scan Normal EGD Meds Allergies and Home Medications Allergies Allergy/AdvReac Type Severity Reaction Status Date / Time liraglutide (From Victoza) AdvReac Intermediate Severe Verified 10/28/23 10:13 diarrhea metformin AdvReac Mild Other (See Verified 10/28/23 10:13 Comment) ibuprofen AdvReac Unknown Other (See Verified 10/28/23 10:13 Comment) Home Medication ?Medication ?Instructions ?Recorded albuterol sulfate 90 mcg/actuation 1 - 2 puff inhalation .Q4-6H PRN 07/25/15 aerosol inhaler (ProAir HFA) finasteride 1 mg tablet (Propecia) 1 mg PO DAILY 07/25/15 glimepiride 4 mg tablet 4 mg PO BID 12/17/17 multivitamin (Daily Multi-Vitamin 1 tab PO DAILY 12/17/17 tablet) acetaminophen 325 mg tablet 325 - 650 mg (1 - 2 x 325 mg) PO 09/12/18 (Tylenol) Q4H PRN PRN pain #0 tabs sertraline 50 mg tablet 50 mg PO DAILY 10/19/22 dupilumab 100 mg/0.67 mL 200 mg subcut Q2W 01/01/23 subcutaneous syringe (Dupixent) omeprazole magnesium 20 mg 40 mg PO DAILY 10/24/23 tablet,delayed release (Prilosec OTC) Current Visit Medications: Current Medications Generic Name Dose Route Start Last Admin Trade Name Freq PRN Reason Stop Dose Admin Ringer's Solution 1,000 mls @ 80 mls/hr 10/28/23 06:00 10/28/23 11:31 IV 10/28/23 23:59 80 mls/hr INFUSION BRAYAN Infusion IV Miscellaneous Supplies 1 each 10/28/23 06:00 Iv Access IV 10/28/23 23:59 DIRECTED BRAYAN Ondansetron HCl 4 mg 10/27/23 14:11 Ondansetron 4 Mg/2 Ml Vial IVP 11/26/23 14:10 Q4H PRN PRN Nausea / Vomiting Sodium Chloride 0 ml 10/28/23 06:00 Normal Saline Flush 10 Ml Syr IV 10/28/23 23:59 PRN PRN Sodium Chloride 0 ml 10/28/23 06:00 Normal Saline 10 Ml Vial IJ 10/28/23 23:59 DIRECTED PRN Sterile Water 0 ml 10/28/23 06:00 Water,Injection,Sterile 10 Ml Vial IJ 10/28/23 23:59 DIRECTED PRN PFSH Active Problems Active Problems: Problem Status Onset Code Abnormal CT scan, esophagus Acute R93.3 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 mg Depression with anxiety pt. states he no longer has this condition Overweight Tubular adenoma of colon Compulsive disorder pt. states he does not have this condition Asthma Seasonal allergies GERD (gastroesophageal reflux disease) BPH (benign prostatic hyperplasia) Surgical History Surgical History History of nasal polypectomy Hx of colonoscopy (~01/2023) Hx of knee surgery History of cataract extraction left eye Tobacco Smoking/Tobacco Use Status: Former Tobacco Use Alcohol Alcohol Intake: current Alcohol intake frequency: holidays/special occasions only Alcohol type: beer and hard liquor Substance Use Substance use: Never Substance use type: does not use Vital Signs and Lab Results Vital Signs Most Recent Vital Signs in EMR: Vital Signs Temp Pulse Resp BP Pulse Ox 36.5 C 63 16 125/76 95 10/28/23 10:00 10/28/23 10:00 10/28/23 10:00 10/28/23 10:00 10/28/23 10:00 Point of Care Results Point of Care Results: Finger Stick Blood Glucose 275 10/28/23 10:08 Lab Results Blood Type / Crossmatch: No Data to Display Complete Blood Count: No Data to Display Complete Metabolic Panel: No Data to Display Liver Function Panel: No Data to Display Coagulation Panel: No Data to Display Cardiac Panel: No Data to Display Arterial Blood Gas: No Data to Display Venous Blood Gas: No Data to Display Pancreas Panel: No Data to Display Thyroid Panel: No Data to Display Infectious Disease: No Data to Display Blood Cultures: No Data to Display Toxicology Panel: No Data to Display Imaging and Studies Imaging and Studies Study information below may be from another EMR and interpreted by another provider. Please see original notes in EMR for more complete details. EKG Summary: EKG PATIENT NAME: Umair Valdivia UNIT #: [id number] ORDERING PROVIDER: Pam Torres PRIMARY CARE PROVIDER: MORRIS RENEE MD DATE/TIME OF SERVICE: 09/16/232020 : 1955 PERFORMING LOCATION: [place] APPROVED REPORT Exam: Resting ECG Reason for Exam: vomitting, dehydration Patient Location: E HR:70 bpm ECG Measurements Heart Rate 70 AXIS ME 213 P 43 QRSd 105 QRS -29 QT 414 T59 QTc 447 Conclusion Sinus rhythm 70 normal axis no stemi <Electronically signed by Stanford Cunha M.D. in [place]> E-Sign Date: 09/16/23 E-Sign Time: 2255 ADDENDUM APPROVED REPORT Exam: Resting ECG Reason for Exam: vomitting, dehydration Patient Location: E HR:70 bpm ECG Measurements Heart Rate 70 AXIS ME 213 P 43 QRSd 105 QRS -29 QT 414 T59 QTc 447 Conclusion Sinus rhythm 70 normal axis no stemi I have reviewed and I agree with the emergency room physician's ECG interpretation. Electronically signed by: <Electronically signed by Helen Rodriguez M.D. in [place]> 09/17/23 0808 Cosigned by: Anesthesia Assessment and Plan Anesthesia History Personal History: No History of Anesthesia Complications Family History: No Family History of Anesthesia Complications Exercise Tolerance Exercise Tolerance: Metabolic Equivalents>4 Pertinent Negatives Pertinent Negatives: No Symptoms of GERD Cardiac & Pulmonary Exam Cardiac Exam: Normal S1/S2 Heart Sounds Pulmonary Exam: Clear Bilateral Breath Sounds Implantable Cardiac Device Does patient have a Pacemaker or an ICD?: No Airway Exam Known Difficult Airway: No Mallampati Class: 2 Mouth Opening: Normal (> 3cm) Thyromental Distance: Greater than 3 cm Neck Range of Motion: Full ROM Neck Circumference: Normal Teeth Condition: Normal Dentition, Generalized Poor Dentition and Removable Dentures/Plates Upper (partial) ASA Classification ASA Score: ASA 3 Emergency Case?: No NPO Status NPO Status: NPO Clears >2 hours, Solids >8 hours Anesthesia Plan Resuscitation Status: Full Code Anesthesia Technique: General Anesthesia Airway Planned: Natural Airway Monitors Used: Standard Monitors
[2023-10-28 12:00] VITALS: BMI 30.3
--- NOTE | 2023-10-28 12:00 | W.ANESPOSTOP ---
Postoperative Evaluation Date, Time and Location Date Performed: 10/28/23 Time Performed: 11:39 Patient Location: Day Surgery Unit Vital Signs Most Recent Imported Vital Signs: Most Recent Vital Signs Temp Pulse Resp BP Pulse Ox 36.4 C L 69 16 109/67 93 10/28/23 11:37 10/28/23 11:37 10/28/23 11:37 10/28/23 11:37 10/28/23 11:37 Pain Score Most Recent Pain Score: Most Recent Pain Score Pain Level 0 10/28/23 11:37 Assessment Mental Status: Awake (Alert & Oriented to Patient Baseline) Airway and Respiratory Function: Patent airway with normal (patient baseline) respiratory exam Cardiovascular Function: Hemodynamically Stable Hydration Status: Adequately Hydrated Nausea & Vomiting: No Nausea or Vomiting Pain: Pt. Denies Any Pain Peripheral Nerve Block: Patient did not receive a nerve block
[2023-10-28 12:05] VITALS: BP 111/73; PULSE 58; RESP 16; TEMP 36.4; O2SAT 95
== END 2023-10-28 12:25 | disposition home or self-care (01) ==
LOC: SUR 09:52
PROVIDERS: PCP Family Medicine; Visit Provider Surgery
PROC: 0DJ68ZZ Inspection of Stomach, Via Natural or Artificial Opening Endoscopic (ICD-10-PCS; CPT 43235; principal; 2023-10-28 11:15)
DX: R93.3 Abnormal findings on diagnostic imaging of other parts of digestive tract (principal); K20.90 Esophagitis, unspecified without bleeding
CPT/HCPCS: 43239; 88305; 88361; J2001; J2704

== ENCOUNTER 2024-07-15 17:07 | Outpatient (REF) | payer MEDICARE, SELFPAY ==
[2024-07-15 20:15] LABS: Abs Immature Grans 0.03 10^3/uL (0.0-0.06); Absolute Basophil Count 0.05 10^3/uL (0.0-0.2); Absolute Eosinophil Count 0.38 10^3/uL (0.0-0.7); Absolute Lymphocyte Count 1.57 10^3/uL (1.2-3.4); Absolute Monocyte Count 0.66 10^3/uL (0.1-0.8); Absolute Neutrophil Count 6.16 10^3/uL (1.2-6.7); Basophils % 0.6 %; Eosinophils % 4.3 %; HCT 47.3 % (40.0-50.0); HGB 15.4 g/dL (13.5-17.5); Immature Grans % 0.3 %; Lymphocytes % 17.7 %; MCH 28.4 pg (27.0-33.0); MCHC 32.6 % (32.0-36.0); MCV 87 fL (80-95); MPV 10.5 fL (8.0-11.0); Monocytes % 7.5 %; Neutrophils % 69.6 %; Platelet Count 232 10^3/uL (130-400); RBC 5.43 10^6/uL (4.36-5.78); RDW 12.9 % (11.8-14.1); RDW-SD 40.7 fL; WBC 8.85 10^3/uL (4.4-10.8)
[2024-07-15 20:51] LABS: ALT 31 U/L (16-63); AST 16 U/L (15-37); Albumin 4.3 g/dL (3.4-5.0); Alkaline Phosphatase 126 U/L (46-116); Anion Gap 11.5 mmol/L (3-11); BUN 24 mg/dL (7-18); Bilirubin, Total 0.4 mg/dL (0.2-1.0); CO2 25.5 mmol/L (21.0-32.0); CREATININE 0.9 mg/dL (0.70-1.30); Calcium 9.5 mg/dL (8.5-10.1); Calculated LDL 60 mg/dL (<100); Chloride 103 mmol/L (98-107); Cholesterol 167 mg/dL (<200); Estimated GFR 93.03 (mL/min/1.73m2); Glucose 271 mg/dL (74-106); HDL Cholesterol 71 mg/dL (>or=40); Potassium 4.4 mmol/L (3.5-5.1); Sodium 140 mmol/L (136-145); TSH 0.71 uIU/mL (0.36-3.74); Total Protein 7.8 g/dL (6.4-8.2); Triglyceride 182 mg/dL (<150)
[2024-07-15 21:03] LABS: COMMENT (LAB VIEW ONLY) 47.95 mg/dL; Microalb ug/mg Crea 23.8 ug/mg Cr
== END 2024-07-15 17:08 | disposition home or self-care (01) ==
LOC: NCHCN 17:07
PROVIDERS: PCP Family Medicine; Visit Provider Family Medicine
DX: Z00.00 Encounter for general adult medical examination without abnormal findings (principal)
CPT/HCPCS: 80053; 80061; 82043; 82570; 84443; 85025

== ENCOUNTER 2024-09-17 01:18 | Outpatient (CLI) | payer OTHER, MEDICARE, SELFPAY ==
--- NOTE | 2024-09-17 | DI.RAD_ITS ---
Exam(s) XR HAND LT COMPLETE EXAM: XR HAND LT COMPLETE CLINICAL HISTORY: Left finger pain M79.645 3rd digit crush injury W/laceration,? nonunion or. TECHNIQUE: 2D digital imaging was performed. COMPARISON: No exams were available for comparison FINDINGS: 3 views No evidence of acute fracture or dislocation. Lateral view is suboptimal as there is overlapping of bones. However, on the lateral view there is a thin foreign body in the deep soft tissues adjacent to the volar cortex of the distal phalanx. Difficult to determine exactly which finger because of overlapping of bones. IMPRESSION: No fractures. Foreign body as above. Recommend repeating the lateral view with better separation of the fingers DATA REPOSITORY: RADIATION DOSE DELIVERED:
== END 2024-09-17 01:38 ==
PROVIDERS: PCP Family Medicine; Visit Provider Family Medicine
DX: M79.645 Pain in left finger(s) (principal)
CPT/HCPCS: 73130

== ENCOUNTER 2024-09-24 00:37 | Outpatient (CLI) | payer OTHER, SELFPAY ==
--- NOTE | 2024-09-24 | DI.RAD_ITS ---
Exam(s) XR FINGER LT MIDDLE EXAM: XR FINGER LT MIDDLE EXAM DATE/TIME: CLINICAL HISTORY: FOREIGN BODY LT MIDDLE FINGER,S60.453A,H/O CRUSH INJURY WITH LACERATION, 4/. TECHNIQUE: 2D digital imaging was performed of the left finger. Three views were obtained. PA/AP, oblique, and lateral views were obtained. COMPARISON: None. FINDINGS: BONES: No acute fracture is present. No bony destructive lesion is seen. JOINTS: No dislocation is present. Mild degenerative changes are seen at the distal interphalangeal joint. SOFT TISSUE: The 1 mm linear density in the soft tissues anterior to the distal phalanx of the finger is again seen. The findings are suspicious for foreign body. No soft tissue gas is appreciated. IMPRESSION: No change in location of the foreign body in the anterior soft tissues adjacent to the distal phalanx. DATA REPOSITORY: RADIATION DOSE DELIVERED:
== END 2024-09-24 00:57 ==
PROVIDERS: PCP Family Medicine; Visit Provider Family Medicine
DX: S60.453D Superficial foreign body of left middle finger, subsequent encounter (principal); X58.XXXD Exposure to other specified factors, subsequent encounter
CPT/HCPCS: 73140